=== PATIENT | male | born 1975 | race Caucasian/White ===

== ENCOUNTER 2018-06-11 21:04 | Inpatient (IN) | payer OTHER ==
--- NOTE | 2018-06-11 21:15 | PDOC ---
History of Present Illness - General Stated Complaint: VOMITTING Time Seen by Provider: 06/11/18 21:14 - History of Present Illness Initial Comments: 06/11/18 21:14 Mr. Walker is a 43 yo male w/ pmh of HTN, HLD, DM who presents for evaluation of abscess on back with additional nausea and vomiting. Patient reports abscess has been present for the past week and a half. He has previously been checked out at [facility] for same problem and was given outpatient clindamycin prescription due to finish today with no improvement of symptoms. Represents as abscess has continued to grow and he has now had nausea and vomiting he says is from the pain. Additionally reports intermittent fevers, chills, and night sweats in the past week. Has had MRSA positive abscess in the past. The patient denies chest pain, shortness of breath, headache and dizziness. Denies dysuria, frequency, urgency and hematuria. Past History - Past Medical History Allergies/Adverse Reactions: Allergies Allergy/AdvReac Type Severity Reaction Status Date / Time No Known Allergies Allergy Verified 06/11/18 21:29 Home Medications: Ambulatory Orders Insulin Glargine,Hum.rec.anlog [Lantus] 30 unit SQ DAILY 06/12/18 Insulin Regular [NOVOLIN R VIAL *IVPUSH / ER / ICU Only*] 8 unit SQ AC 06/12/18 Review of Systems - Review of Systems Comments:: 06/11/18 21:14 GENERAL/CONSTITUTIONAL: +Fever/Chills/night sweats in past week as described. No weakness. HEAD, EYES, EARS, NOSE AND THROAT: No change in vision. No ear pain or discharge. No sore throat. CARDIOVASCULAR: No chest pain or shortness of breath RESPIRATORY: No cough, wheezing, or hemoptysis. GASTROINTESTINAL: +N/V as described. No diarrhea or constipation. GENITOURINARY: No dysuria, frequency, or change in urination. MUSCULOSKELETAL: +Back pain at abscess site 02/22 SKIN: No rash NEUROLOGIC: No headache, vertigo, loss of consciousness, or change in strength/ sensation. ENDOCRINE: No increased thirst. No abnormal weight change HEMATOLOGIC/LYMPHATIC: No anemia, easy bleeding, or history of blood clots. ALLERGIC/IMMUNOLOGIC: No hives or skin allergy. *Physical Exam - Physical Exam Comments: 06/11/18 21:15 GENERAL: Awake, alert, and fully oriented, in no acute distress HEAD: No signs of trauma, normocephalic, atraumatic EYES: PERRLA, EOMI, sclera anicteric, conjunctiva clear ENT: Auricles normal inspection, hearing grossly normal, nares patent, oropharynx clear without exudates. Moist mucosa NECK: Normal ROM, supple, no lymphadenopathy, JVD, or masses LUNGS: No distress, speaks full sentences, clear to auscultation bilaterally HEART: Regular rate and rhythm, normal S1 and S2, no murmurs, rubs or gallops, peripheral pulses normal and equal bilaterally. ABDOMEN: Soft, nontender, normoactive bowel sounds. No guarding, no rebound. No masses EXTREMITIES: +[id number] abscess noted to L upper back. Also scarring from old abscess sites appreciated to L axilla and 2 other sites on L back. Patient also has scarring from old rectal abscess as well. Otherwise normal inspection, normal range of motion, no edema. No clubbing or cyanosis. NEUROLOGICAL: Cranial nerves II through XII grossly intact. Normal speech, normal gait, no focal sensorimotor deficits SKIN: Warm, Dry, normal turgor, no rashes or lesions noted. 06/11/18 21:49 ED Treatment Course - LABORATORY CBC & Chemistry Diagram: 06/11/18 21:33 06/11/18 22:50 Medical Decision Making - Medical Decision Making 06/11/18 21:47 Mr. Walker is a 43 yo male w/ pmh as described who presents for evaluation of abscess. Given presentation and size of abscess, gen surgery contacted upon arrival and will evaluate in AM. Septic workup started. 06/12/18 00:09 Patient labs consistent with infection as below. Wound culture sent for review. Patient hydrated per sepsis guidelines and given vanc/zosyn for prophylaxis. Insulin given for elevated BGM. Patient will be admitted. 06/12/18 01:[address] Chest with inpatient team. Creatinine elevated as below. Patient will require hydration for kidney protection before able to perform with contrast. Laboratory Results - last 24 hr 06/11/18 06/11/18 06/11/18 21:33 21:33 22:30 WBC 19.3 H RBC 4.30 Hgb 13.3 Hct 37.8 MCV 87.9 MCH 31.0 MCHC 35.3 RDW 13.8 Plt Count 344 MPV 7.8 Absolute Neuts (auto) 16.6 H Neutrophils % 86.2 H Lymphocytes % 3.4 L Monocytes % 9.9 Eosinophils % 0.1 Basophils % 0.4 Nucleated RBC % 0 VBG pH 7.43 H POC VBG pCO2 34.7 L POC VBG pO2 51.7 H Mixed VBG HCO3 22.7 Sodium Potassium Chloride Carbon Dioxide Anion Gap BUN Creatinine Creat Clearance w eGFR Random Glucose Calcium Total Bilirubin AST ALT Alkaline Phosphatase Troponin I Total Protein Albumin Urine Color Yellow Urine Appearance Slcloudy Urine pH 5.0 Ur Specific [place] 1.024 Urine Protein 2+ H Urine Glucose (UA) 3+ H Urine Ketones 1+ H Urine Blood Negative Urine Nitrite Negative Urine Bilirubin Negative Urine Urobilinogen 2.0 Ur Leukocyte Esterase Negative Urine WBC (Auto) 30 Urine RBC (Auto) 2 Ur Epithelial Cells Rare Hyaline Casts 1 Urine Mucus Rare Acetone, Qual 06/11/18 06/11/18 06/11/18 22:50 22:50 22:50 WBC RBC Hgb Hct MCV MCH MCHC RDW Plt Count MPV Absolute Neuts (auto) Neutrophils % Lymphocytes % Monocytes % Eosinophils % Basophils % Nucleated RBC % VBG pH POC VBG pCO2 POC VBG pO2 Mixed VBG HCO3 Sodium 134 L Potassium 3.9 Chloride 100 Carbon Dioxide 24 Anion Gap 10 BUN 27 H Creatinine 1.4 H Creat Clearance w eGFR 55.85 Random Glucose 337 H* Calcium 8.3 L Total Bilirubin 0.4 AST 13 L ALT 20 Alkaline Phosphatase 209 H Troponin I < 0.02 Total Protein 6.3 L Albumin 2.5 L Urine Color Urine Appearance Urine pH Ur Specific [place] Urine Protein Urine Glucose (UA) Urine Ketones Urine Blood Urine Nitrite Urine Bilirubin Urine Urobilinogen Ur Leukocyte Esterase Urine WBC (Auto) Urine RBC (Auto) Ur Epithelial Cells Hyaline Casts Urine Mucus Acetone, Qual Trace *DC/Admit/Observation/Transfer Diagnosis at time of Disposition: Abscess Sepsis Qualifiers: Sepsis type: sepsis due to unspecified organism Qualified Code(s): A41.9 - Sepsis, unspecified organism - Discharge Dispostion Condition at time of disposition: Fair Decision to Admit order: Yes - Referrals - Patient Instructions - Post Discharge Activity
[2018-06-11 21:29] VITALS: BMI 27.9
[2018-06-11] MEDS ORDERED: SODIUM CHLORIDE 2,286 ML IV ONE (21:32)
[2018-06-11] MEDS ORDERED: PIPERACILLIN/TAZOB 3.375 GM 3.375 GM in DEXTROSE 5%-WATER - 50 ML IVPB ONE (21:34)
[2018-06-11] MEDS ORDERED: VANCOMYCIN 1 GM in D5W (PRE-DOCKED) 1,000 MG/250 ML IVPB ONE (21:34)
[2018-06-11] MEDS ORDERED: ONDANSETRON 4 MG/2 ML VIAL IVPUSH ONE (21:34)
--- NOTE | 2018-06-11 21:34 | PDOC ---
Attending Attestation - HPI HPI: This patient is a 43 year old male with PMHx of DM, HTN, HLD, asthma, BPD, MRSA in past, who presents with multiple abscesses, nausea, and vomit. Patient reports painful large abscess on mid-back for the past 7-10 days. He also has abscesses in anus, and left axilla. He has had abscesses in the past. Patient reports being seen at [facility] with Rx for clinda with no improvement of symptoms. He reports associated fevers, chills and night sweats. Social Hx: currently homeless and couch surfing. Current everyday smoker (last smoked few days ago) - Physicial Exam PE: GENERAL: Awake, alert, and fully oriented, in no acute distress. Febrile. HEAD: No signs of trauma EYES: PERRLA, EOMI, sclera anicteric, conjunctiva clear ENT: Auricles normal inspection, hearing grossly normal, nares patent, posterior oropharynx with ulcers and thrush. Very dry mucosa. Poor dentition. NECK: Normal ROM, supple, no lymphadenopathy, JVD, or masses LUNGS: Breath sounds equal, clear to auscultation bilaterally. No wheezes, and no crackles HEART: Regular rate and rhythm, normal S1 and S2, no murmurs, rubs or gallops ABDOMEN/BACK: Soft, nontender, normoactive bowel sounds. No guarding, no rebound. No masses. Flank pain referred from larger back abscess. See skin for absesses. EXTREMITIES: Normal range of motion, no edema. No clubbing or cyanosis. No cords, erythema, or tenderness NEUROLOGICAL: Cranial nerves II through XII grossly intact. Normal speech, normal gait SKIN: [id number] mid back abscess, purulent drainage, surrounding erythema. 2 old abscesses on upper back. 1x1 cm abscess 2 cm below left nipple, draining. Early infectious lesion in left axilla. 1 abscess in anus. Warm, Dry, normal turgor, no rashes or lesions noted. <Maia Mchugh - Last Filed: 06/11/18 21:57> - Resident Resident Name: Aldo Mandel - ED Attending Attestation I have performed the following: I have examined & evaluated the patient, The case was reviewed & discussed with the resident, I agree w/resident's findings & plan - Medical Decision Making 06/12/18 00:48 CBC is 19; pt has acetone +/DM not well controlled. He will be treated with reg insulin. Received vanco and zosyn for the wound/abscess <Conchis Carlton - Last Filed: 06/12/18 00:48> Heart Score/ECG Review - ECG Intrepretation Rhythm: Regular Rhythm - Hildebran Hildebran: Normal - P and RI Prominent R with upright T in V1 (true posterior AK): No Delta Wave(s) Present: No WPW: No - QRS Poor R Wave Progression: No Q Wave Present: No - ST and T Early Repolarization: No Non Specific ST-T Wave changes: No Flattened T Waves: No - ECG Impressions Normal ECG: Yes Non-specific ST Elevation: No Ischemic Changes: No Bradycardia: No Tachycardia: Sinus (borderline tachy) <Conchis Carlton - Last Filed: 06/12/18 00:48>
[2018-06-11] MEDS ORDERED: NYSTATIN 500,000 UNITS/5 ML SUSPENSION PO ONE (21:42)
[2018-06-11] MEDS ORDERED: ONDANSETRON 4 MG/2 ML VIAL ONE (21:43)
[2018-06-11] MEDS ORDERED: PIPERACILLIN/TAZOB 3.375 GM 3.375 GM/50 ML BAG IVPB ONE (21:44)
[2018-06-11] MEDS ORDERED: VANCOMYCIN 1 GRAM (PRE-DOCKED) 1,000 MG/250 ML BAG IVPB ONE (21:44)
[2018-06-11] MEDS ORDERED: ACETAMINOPHEN 1000 MG/100 ML VIAL (NON FORMULARY) IVPB ONE (21:46)
[2018-06-11] MEDS ORDERED: ACETAMINOPHEN INJECTION 100 ML IVPB ONE (22:31)
[2018-06-11 23:07] LABS: VENOUS PC02 34.7 mmHg (38-52); VENOUS PH 7.43 (7.32-7.42); VENOUS PO2 51.7 mmHg (28-48)
[2018-06-11 23:08] LABS: BASO % 0.4 % (0-2.0); EOS % 0.1 % (0-4.5); HEMATOCRIT 37.8 % (35.4-49); HEMOGLOBIN 13.3 GM/dL (11.7-16.9); LYMPH % 3.4 % (8-40); MCHC 35.3 g/dl (32.0-35.9); MEAN CELL VOLUME 87.9 fl (80-96); MEAN PLT VOLUME 7.8 fl (7.5-11.1); MONO % 9.9 % (3.8-10.2); NEUT % 86.2 % (42.8-82.8); PLATELET COUNT 344 K/MM3 (134-434); RDW 13.8 % (11.9-15.9); WHITE BLOOD COUNT 19.3 K/mm3 (4.0-10.0)
[2018-06-11 23:20] LABS: INR 1.32 (0.83-1.09); PROTHROMBIN TIME (PATIENT) 15.6 SEC (9.7-13.0)
[2018-06-11 23:20] LABS: URINE APPEARANCE SLCLOUDY; URINE BILIRUBIN NEGATIVE (<2.0 mg/dL); URINE COLOR YELLOW; URINE GLUCOSE (UA) 3+ (NEGATIVE); URINE KETONE 1+ (NEGATIVE); URINE LEUK ESTERASE NEGATIVE (NEGATIVE); URINE NITRITE NEGATIVE (NEGATIVE); URINE PROTEIN 2+ (NEGATIVE)
[2018-06-11 23:22] LABS: ACTIVATED PTT 30.3 SECONDS (25.2-36.5)
[2018-06-11 23:23] LABS: EPI CELLS RARE /HPF (FEW); URINE HYALINE CAST 1 /lpf; URINE MUCUS RARE
[2018-06-11] MEDS ORDERED: INSULIN REGULAR HUMAN 100 UNITS/ML *VIAL IVPUSH ONE (23:44)
[2018-06-11 23:45] LABS: ALBUMIN 2.5 g/dl (3.4-5.0); ALK PHOS 209 U/L (45-117); ANION GAP 10 MMOL/L (8-16); BILIRUBIN,TOTAL 0.4 mg/dL (0.2-1); BLOOD UREA NITROGEN 27 mg/dL (7-18); CALCIUM 8.3 mg/dL (8.5-10.1); CHLORIDE 100 mmol/L (98-107); CO2 24 mmol/L (21-32); CREATININE 1.4 mg/dL (0.55-1.3); POTASSIUM 3.9 mmol/L (3.5-5.1); SGOT/AST 13 U/L (15-37); SGPT/ALT 20 U/L (13-61); SODIUM 134 mmol/L (136-145); TOT PROT 6.3 g/dl (6.4-8.2)
[2018-06-11 23:47] LABS: GLUCOSE,RANDOM 337 mg/dL (74-106)
[2018-06-12] MEDS ORDERED: INSULIN REGULAR HUMAN 100 UNITS/ML *VIAL ONE ×2 (00:10→07:19)
--- NOTE | 2018-06-12 00:48 | PN ---
Teaching Attending Note Name of Resident: Caroline Landry ATTENDING PHYSICIAN STATEMENT I saw and evaluated the patient. I reviewed the resident's note and discussed the case with the resident. I agree with the resident's findings and plan as documented. SUBJECTIVE: Seen and examined; please refer to resident note for further historical information/. Briefly, this is a 43 y/o homeless male presenting with c/o mutliple abscesses (midback, L-axilla, L-nipple, anal area). He has had MRSA in the past (2 years ago at [facility] for MRSA wound on chest) and tells us he has had '15' I and D's done. The pain has been gradually getting worse so he chose to come to the ER for further treatment and monitoring. In terms of the anal abscess, he states it is not currently active but he has had one in the past. The back abscess is quite large, nearly a foot of induration. Case was discussed with Dr. Barker by ER staff who will see the patient in the AM. He has multiple risk factors for MRSA including incarceration. He was seen at [facility] for this last week and was discharged with a 1 week course of PO clinda; seen by his PCP on tuesday and was given ibuprofen. He has some constitutional sx. 10 sys ROS done and negative aside from HPI PMH and PSH reviewed (DM, HTN, HLD, Asthma, BPD, MRSA in the past) FH asked and noncontributory Social history reviewed Medication list reviewed; reconciliation pending OBJECTIVE: VS, labs, imaging reviewed NAD, AAO, resting comfortably in bed Midback with [id number] abscess seen with some purulent drainage, surrounding erythema Labs and imaging reviewed; CBC with leukocytosis to 19; BMP with 134 Na and 1/4 Cr with 337 glucose and NO anion gap and normal CO2. Low albumin at 2.5. UA positive for glucose, ketones, proteins. VBG unremarkable CXR pending final report ASSESSMENT AND PLAN: 43 y/o homeless man presenting with multiple abscesses and hyperglycemia 1) Multiple abscesses -Midback, chest, L-axilla, Anal area; asked resident team to outline abscess areas with surgical marker -With history of MRSA vancomycin will be continue as well. Consulting ID for antibiotic management per policy given drugs of choice. CT ordered; if no free air can likely do vancomycin monotherapy. -Surgery is following; defer ultimate management to their service. Appreciate expert opinion. -Trend CBC, followup cultures -NPO, IVF, Pain control (he does have a history of drug abuse so will minimize use of narcotics in this patient but in this acute setting of course will tx pain) 2) Uncontrolled DM with hyperglycemia -Continue home meds when eating; aggressive SSI coverage in the pre-operative setting overnight. Hyperglycemia could be precipitated by poor baseline control or the acute infection. Goal <180 for time being. If SSI proves difficult can give some of his long acting but want to avoid hypoglycemia. 3) Elevated Alk Phos -Check GGT; RUQ us if needed 4) HTN -Was on medications prior but not taking now; monitor BP and add agent if needed prior to DC 5) HLD -Not on home meds; check FLP and calculate ASCVD 6) Elevated Creatinine -No prior creatinine in the system; he has multiple reasons for CKD. Trend CMP ; this may be his baseline. 7) Hx Asthma -No exacerbation; can give PRN albuterol FENA -LR@100 -PRN replete -NPO in case of procedure -As tolerated Full Code
[2018-06-12] MEDS ORDERED: MORPHINE SULFATE 2 MG/ML VIAL IVPUSH PRN (00:55)
[2018-06-12] MEDS ORDERED: ALBUTEROL SO4 0.083% IH SOL 2.5 MG/3 ML VIAL.NEB. NEB PRN ×2 (00:59→18:02)
[2018-06-12] MEDS ORDERED: LACTATED RINGERS SOLUTION 1,000 ML IV SCH (01:00)
--- NOTE | 2018-06-12 01:08 | HP ---
CHIEF COMPLAINT: L back abscess x 1.5 weeks PCP: Dr. Deep Sanders HISTORY OF PRESENT ILLNESS: 43 y/o homeless M with PMH HTN, HLD, DM, asthma, who presents to the ED for L back abscess that has been present over the past 1.5 weeks. As per pt, it did not start out as a pimple, or skin irritation. States that it 1.5 weeks ago, it was already large (approx [id number] in) and irritated. Pt went to [facility] for further evaluation of the abscess last Tuesday and was rx 7 day course of clindamycin, which he just finished today. In the interim, he saw his PCP, Dr. Sanders who told him it was not ready to incise and to take ibuprofen in the meanwhile. Today, pt was at his cousin's house when he noticed that he was unable to breathe from the pain, so he decided he needed to come to the ED for further evaluation. At this time, endorses alternating fever and chills sensations, as well as self-limited nausea w/NBNB emesis. Without chest pain or pressure, or changes in urinary or bowel function. Of note, pt has had multiple I&D in the past (>15) all for abscesses on the L side of his body (chest, LUE, back, perianal). He was hospitalized 2 yrs prior at [facility] for wound + with MRSA and was sent home on an antibiotic. (does not remember the name). Was released from assisted three yrs ago, and has been living on the streets ever since, sometimes in shelters. Past hx significant for use of multiple drugs cocaine, PCP, marijuana. ER course was notable for: (1) zofran (2) insulin 6u (3) vanc, zosyn (4) tylenol Recent Travel: denies; but has been living [address] PAST MEDICAL HISTORY: as above PAST SURGICAL HISTORY: as above, multiple I&D Social History: Smokin cigs/day since age 15 Alcohol: denies Drugs: quit 3 yrs ago when released from assisted, used to use cocaine, PCP, marijuana Family History: mother - from brain CA, brother - psych issues Allergies No Known Allergies Allergy (Verified 06/11/18 21:29) HOME MEDICATIONS: Home Medications Medication Instructions Recorded Insulin Glargine,Hum.rec.anlog 30 unit SQ DAILY 06/12/18 [Lantus] Insulin Regular [NOVOLIN R VIAL 8 unit SQ AC 06/12/18 *IVPUSH / ER / ICU Only*] verified with pt verbally used to be on meds for HTN however was taken off d/t improved bp REVIEW OF SYSTEMS CONSTITUTIONAL: +fever, chills Absent: fever, chills, diaphoresis, generalized weakness, malaise, loss of appetite, weight change HEENT: Absent: rhinorrhea, nasal congestion, throat pain, throat swelling, difficulty swallowing, mouth swelling, ear pain, eye pain, visual changes CARDIOVASCULAR: Absent: chest pain, syncope, palpitations, irregular heart rate, lightheadedness , peripheral edema RESPIRATORY: Absent: cough, shortness of breath, dyspnea with exertion, orthopnea, wheezing, stridor, hemoptysis GASTROINTESTINAL: +nausea Absent: abdominal pain, abdominal distension, nausea, vomiting, diarrhea, constipation, melena, hematochezia GENITOURINARY: Absent: dysuria, frequency, urgency, hesitancy, hematuria, flank pain, genital pain MUSCULOSKELETAL: Absent: myalgia, arthralgia, joint swelling, back pain, neck pain SKIN: +abscess Absent: rash, itching, pallor HEMATOLOGIC/IMMUNOLOGIC: Absent: easy bleeding, easy bruising, lymphadenopathy, frequent infections ENDOCRINE: Absent: unexplained weight gain, unexplained weight loss, heat intolerance, cold intolerance NEUROLOGIC: Absent: headache, focal weakness or paresthesias, dizziness, unsteady gait, seizure, mental status changes, bladder or bowel incontinence PSYCHIATRIC: Absent: anxiety, depression, suicidal or homicidal ideation, hallucinations. PHYSICAL EXAMINATION Vital Signs - 24 hr 06/11/18 21:04 Temperature 98.5 F Pulse Rate 77 Respiratory 18 Rate Blood Pressure 100/62 O2 Sat by Pulse 97 Oximetry (%) GENERAL: Unkempt. Lying down in bed. Awake, alert, and fully oriented, in mild distress HEAD: Normal with no signs of trauma. EYES: Pupils equal, round and reactive to light, extraocular movements intact, sclera anicteric, conjunctiva clear. EARS, NOSE, THROAT: Ears normal, nares patent, oropharynx clear without exudates. Moist mucous membranes. NECK: Normal range of motion, supple LUNGS: Breath sounds equal, clear to auscultation bilaterally. No wheezes, and no crackles. No accessory muscle use. HEART: Regular rate and rhythm, normal S1 and S2 without murmur, rub or gallop. ABDOMEN: Soft, nontender, not distended, normoactive bowel sounds, no guarding, no rebound, no masses. LOWER EXTREMITIES: 2+ pt pulses, warm, well-perfused. No calf tenderness. No peripheral edema. NEUROLOGICAL: Cranial nerves II-XII intact. able to move UE and LE however limited 2/2 abscess pain in back BACK: +large abscess - hardened, tender with surrounding erythema, no drainage or foul smell. with crusting. approx [id number] PSYCHIATRIC: Cooperative. Good eye contact. SKIN: +multiple abscesses- L chest. currently not draining. +L gluteal area- scar, no active abscess noted Laboratory Tests 06/11/18 06/11/18 06/11/18 21:33 22:50 22:50 WBC 19.3 H Absolute Neuts (auto) 16.6 H Neutrophils % 86.2 H Lymphocytes % 3.4 L Sodium 134 L Potassium 3.9 Chloride 100 BUN 27 H Creatinine 1.4 H Random Glucose 337 H* Alkaline Phosphatase 209 H will c Troponin I < 0.02 Total Protein 6.3 L Albumin 2.5 L Acetone, Qual CXR: official read pending ASSESSMENT/PLAN: 43 y/o homeless M with PMH HTN, HLD, DM, asthma, who presents to the ED for L back abscess that has been present over the past 1.5 weeks. #Multiple abscesses (L paraspinal area, axilla, chest) -c/w vanc 1g IVPB qd, zosyn 3.375g IVPB q8h. has hx MRSA in past -isolation precautions -f/u abscess, blood cx -ID consult: Dr. Cope -Sx consult: Dr. Barker; will decide whether pt needs I&D. -for time being, will keep NPO, send T+S, coags in prep -will also send quant as pt with exposure to homeless env't -LR 100 cc/hr -pain control with Tylenol KRISTIAN, morphine for breakthrough pain #HTN-controlled -currently not on BP meds -will continue to monitor #HLD -F/u lipid profile to determine ASCVD risk, if need to start on statin #DM -at home on 30u lantus AM, 8U insulin before meals -will hold for now as NPO to avoid hypoglycemia -will cover with ISS #?DEVANG vs. DEVANG on CKD -without baseline Cr -for now will hydrate with IVF and monitor #elevated ALP -currently asymptomatic. however f/u RUQ U/S, GGT #hx asthma -currently not in exacerbation -control with ventolin PRN #F/E/N IV LR 100 cc/hr continue to follow lytes NPO in case of procedure #PPX SCD's #Dispo med/surg for possible I&D tomorrow Visit type - Emergency Visit Emergency Visit: Yes ED Registration Date: 06/11/18 Care time: The patient presented to the Emergency Department on the above date and was hospitalized for further evaluation of their emergent condition. - New Patient This patient is new to me today: Yes Date on this admission: 06/12/18 - Critical Care Critical Care patient: No
[2018-06-12] MEDS ORDERED: PIPERACILLIN/TAZOB 3.375 GM 3.375 GM/50 ML BAG IVPB ONE ×2 (01:41→09:49)
[2018-06-12] MEDS: ACETAMINOPHEN 325 MG TABLET (FP) PO SCH ×4 (02:15→22:27)
[2018-06-12] MEDS: PIPERACILLIN/TAZOB 3.375 GM 3.375 GM in DEXTROSE 5%-WATER - 50 ML IVPB SCH ×2 (02:15→09:50)
[2018-06-12] MEDS ORDERED: ONDANSETRON 4 MG/2 ML VIAL IVPUSH ONE (05:09)
[2018-06-12] MEDS ORDERED: morphine CARPU-JECT 4 MG/1 ML DISP.SYRIN IVPUSH ONE (05:12)
[2018-06-12] MEDS ORDERED: ONDANSETRON 4 MG/2 ML VIAL ONE (05:14)
[2018-06-12] MEDS ORDERED: morphine SULFATE 4 MG/ML VIAL ONE (05:14)
[2018-06-12] MEDS ORDERED: AMOX TR/POT CLAV 875MG/125MG TABLETS (FP) ONE (05:19)
[2018-06-12] MEDS ORDERED: ACETAMINOPHEN 325 MG TABLET (FP) ONE ×2 (05:59→08:03)
[2018-06-12 07:00] LABS: BASO % 0.4 % (0-2.0); EOS % 0.3 % (0-4.5); HEMATOCRIT 33.6 % (35.4-49); HEMOGLOBIN 11.7 GM/dL (11.7-16.9); LYMPH % 4.3 % (8-40); MCH 30.4 pg (25.7-33.7); MCHC 34.8 g/dl (32.0-35.9); MEAN CELL VOLUME 87.4 fl (80-96); MEAN PLT VOLUME 7.8 fl (7.5-11.1); MONO % 11.3 % (3.8-10.2); NEUT % 83.7 % (42.8-82.8); PLATELET COUNT 324 K/MM3 (134-434); RBC 3.84 M/mm3 (4.00-5.60); RDW 13.9 % (11.9-15.9); WHITE BLOOD COUNT 14.7 K/mm3 (4.0-10.0)
[2018-06-12 07:04] LABS: CHOLESTEROL 135 mg/dL (50-200); HDL CHOLESTEROL 11 mg/dL (40-60); TRIGLYCERIDES 250 mg/dL (0-150)
[2018-06-12] MEDS: INSULIN SLIDING SCALE (NOVOLOG) 1 VIAL SQ SCH ×3 (07:20→22:35)
[2018-06-12 07:35] LABS: INR 1.27 (0.83-1.09)
[2018-06-12 07:37] LABS: ACTIVATED PTT 30.7 SECONDS (25.2-36.5)
[2018-06-12 07:59] LABS: ALBUMIN 2.1 g/dl (3.4-5.0); ALK PHOS 168 U/L (45-117); ANION GAP 11 MMOL/L (8-16); BILIRUBIN,TOTAL 0.5 mg/dL (0.2-1); BLOOD UREA NITROGEN 25 mg/dL (7-18); CALCIUM 7.8 mg/dL (8.5-10.1); CHLORIDE 103 mmol/L (98-107); CO2 21 mmol/L (21-32); CREATININE 1.2 mg/dL (0.55-1.3); GLUCOSE,RANDOM 250 mg/dL (74-106); PHOSPHOROUS 3.6 mg/dL (2.5-4.9); POTASSIUM 3.8 mmol/L (3.5-5.1); SGOT/AST 13 U/L (15-37); SGPT/ALT 14 U/L (13-61); SODIUM 135 mmol/L (136-145); TOT PROT 5.4 g/dl (6.4-8.2)
--- NOTE | 2018-06-12 07:59 | CONSULT ---
- Consultation REQUESTING PROVIDER: CONSULT REQUEST: We have been asked to surgically evaluate this patient for back abscess. PCP:Nikita Rausch MD HISTORY OF PRESENT ILLNESS: 43 y/o homeless M with PMH HTN, HLD, DM, asthma, who presents to the ED for L back abscess that has been present over the past 10 days. Patient denies any trauma associated with the onset. Patient states it started as large abscess (approx [id number] in) that became irritated and progressively painful over the past 10 days. Patient also reports fever and chills over the past few days. He went to [facility] for evaluation of the abscess last Tuesday and was started on a 7 day course of clindamycin, which he just finished last night. In the interim, he saw his PCP, Dr. Sanders who told him it was not ready to incise and to take ibuprofen in the meanwhile. Last night the pt was at his cousin's house when he pain became unbearable and he decided to come to the ED for further evaluation. He denies any CP, SOB, N/V/D headache, blurred vision or dizziness. Of note, pt has had multiple I&D in the past (>15) all for abscesses on the L side of his body (chest, LUE, back, perianal). He was hospitalized 2 yrs prior at [facility] for wound + with MRSA and was sent home on an antibiotic. Was released from [facility] three yrs ago, and has been living on the streets ever since, sometimes in shelters. Past hx significant for use of multiple drugs cocaine, PCP, marijuana. Recent Travel: denies; but has been living on the [address] PAST MEDICAL HISTORY: as above PAST SURGICAL HISTORY: as above, multiple I&D Social History: Smokin cigs/day since age 15 Alcohol: denies Drugs: quit 3 yrs ago when released from [facility], used to use cocaine, PCP, marijuana, denies current IVDU Home Medications Medication Instructions Recorded Albuterol Sulfate Inhaler - 1 - 2 inh PO QID PRN 06/12/18 [Ventolin Hfa Inhaler -] Insulin Glargine,Hum.rec.anlog 30 unit SQ DAILY 06/12/18 [Lantus] Insulin Regular [NOVOLIN R VIAL 8 unit SQ AC 06/12/18 *IVPUSH / ER / ICU Only*] Allergies Allergy/AdvReac Type Severity Reaction Status Date / Time Fish Containing Products Allergy Verified 06/12/18 03:50 REVIEW OF SYSTEMS: CONSTITUTIONAL: + fever, chills, diaphoresis, malaise, loss of appetite, CARDIOVASCULAR: Absent: chest pain, syncope, palpitations, lightheadedness, peripheral edema RESPIRATORY: Absent: cough, shortness of breath, dyspnea with exertion, hemoptysis GASTROINTESTINAL: Absent: abdominal pain, abdominal distension, nausea, vomiting, diarrhea, GENITOURINARY: Absent: dysuria, frequency, urgency, hesitancy, hematuria, MUSCULOSKELETAL: Absent: joint swelling, neck pain SKIN: Absent: rash, itching, pallor HEMATOLOGIC/IMMUNOLOGIC: Absent: easy bleeding, easy bruising, NEUROLOGIC: Absent: headache, focal weakness, paresthesias, dizziness, bladder or bowel incontinence PHYSICAL EXAM: GENERAL: Awake, alert, and fully oriented, in no acute distress. HEAD: Normal with no signs of trauma. EYES: sclera anicteric, conjunctiva clear. LUNGS: no auditory wheezes, No accessory muscle use, unlabored resp on RA MUSCULOSKELETAL:moving all extremities without limitation. Back: Large wound @ [id number] with large area or crust in center with purulance draining at center, no obvious sign of a sinus tract. crusted area surrounded by a halo of blanching erythema with no evidence of tracking. Entire area indurated with no superficial fluctuance. UPPER EXTREMITIES: warm, well-perfused. No peripheral edema. NEUROLOGICAL: Normal speech, gait not observed. PSYCH: Cooperative. Good eye contact. Appropriate mood and affect. SKIN: Warm, dry, normal turgor, no rashes noted. Vital Signs Temperature 97.5 F L 06/12/18 05:30 Pulse Rate 91 H 06/12/18 05:30 Respiratory Rate 16 06/12/18 05:30 Blood Pressure 127/68 06/12/18 05:30 O2 Sat by Pulse Oximetry (%) 98 06/12/18 05:30 Lab Results WBC 14.7 K/mm3 (4.0-10.0) H 06/12/18 05:30 RBC 3.84 M/mm3 (4.00-5.60) L 06/12/18 05:30 Hgb 11.7 GM/dL (11.7-16.9) 06/12/18 05:30 Hct 33.6 % (35.4-49) L 06/12/18 05:30 MCV 87.4 fl (80-96) 06/12/18 05:30 MCHC 34.8 g/dl (32.0-35.9) 06/12/18 05:30 RDW 13.9 % (11.9-15.9) 06/12/18 05:30 Plt Count 324 K/MM3 (134-434) 06/12/18 05:30 Sodium 134 mmol/L (136-145) L 06/11/18 22:50 Potassium 3.9 mmol/L (3.5-5.1) 06/11/18 22:50 Chloride 100 mmol/L (98-107) 06/11/18 22:50 Carbon Dioxide 24 mmol/L (21-32) 06/11/18 22:50 Anion Gap 10 MMOL/L (8-16) 06/11/18 22:50 BUN 27 mg/dL (7-18) H 06/11/18 22:50 Creatinine 1.4 mg/dL (0.55-1.3) H 06/11/18 22:50 Random Glucose 337 mg/dL (74-106) H* 06/11/18 22:50 Calcium 8.3 mg/dL (8.5-10.1) L 06/11/18 22:50 Blood Type O POSITIVE 06/12/18 03:00 Antibody Screen Negative 06/12/18 03:00 INR 1.27 (0.83-1.09) H 06/12/18 05:30 Problem List - Problems (1) Abscess Assessment/Plan: Large back abscess in patient with multiple comorbidities. 1) NPO except sips with meds for possible debridement in OR today 2) CT Thoracic spine 3) ID for IV ABX 4) Pain mngt Evaluation and plan discussed with Dr Barker Code(s): L02.91 - CUTANEOUS ABSCESS, UNSPECIFIED
--- NOTE | 2018-06-12 10:47 | EKG ---
Test Reason : Blood Pressure : / mmHG Vent. Rate : 096 BPM Atrial Rate : 096 BPM P-R Int : 136 ms QRS Dur : 086 ms QT Int : 350 ms P-R-T Axes : 034 061 057 degrees QTc Int : 442 ms SINUS RHYTHM BASELINE ARTIFACT OTHERWISE NORMAL ECG NO PREVIOUS ECGS AVAILABLE Confirmed by PRISCILLA JEAN, ANTONIO ([id number]) on 06/12/2018 10:46:58 AM Referred By: Confirmed By:ANTONIO WELLS MD
[2018-06-12 10:56] LABS: ACANTHOCYTES 0; ANISOCYTOSIS 0; HELMET CELLS 0; HOWELL-JOLLY BODIES 0; MACROCYTOSIS 0; OVALOCYTE 0; PLATELET ESTIMATE NORMAL; ROULEAU 0; SICKELED CELLS 0; TARGET CELLS 0; TEAR DROP CELLS 0; TOXIC GRANULATION 0
--- NOTE | 2018-06-12 11:15 | PN ---
Progress Note, Physician Chief Complaint: Mr Walker complains of severe back pain. No cp, sob, n/v. - Current Medication List Current Medications: Active Medications Acetaminophen (Tylenol -) 650 mg PO Q4HPO KRISTIAN Last Admin: 06/12/18 10:30 Dose: 650 mg Albuterol Sulfate (Ventolin 0.083% Nebulizer Soln -) 1 amp NEB Q4H PRN PRN Reason: SHORT OF BREATH/WHEEZING Lactated Ringer's (Lactated Ringers Solution) 1,000 mls @ 100 mls/hr IV ASDIR KRISTIAN Last Admin: 06/12/18 02:15 Dose: 100 mls/hr Piperacillin Sod/Tazobactam (Sod 3.375 gm/ Dextrose) 50 mls @ 100 mls/hr IVPB Q8H-IV KRISTIAN Insulin Aspart (Novolog Vial Sliding Scale -) 1 vial SQ ACHS [facility]; Protocol Last Admin: 06/12/18 07:20 Dose: 6 unit Morphine Sulfate (Morphine Sulfate) 2 mg IVPUSH Q6H PRN PRN Reason: PAIN LEVEL 7 - 10 Vancomycin HCl (Vancomycin (Pre-Docked)) 1,000 mg IVPB DAILY [facility]; Protocol - Objective Vital Signs: Vital Signs Temperature 36.8 C 06/12/18 08:09 Pulse Rate 86 06/12/18 08:09 Respiratory Rate 16 06/12/18 08:09 Blood Pressure 135/63 06/12/18 08:09 O2 Sat by Pulse Oximetry (%) 99 06/12/18 08:09 Constitutional: Yes: Well Nourished, No Distress, Calm Cardiovascular: Yes: Regular Rate and Rhythm. No: Gallop, Murmur, Rub Respiratory: Yes: Regular, CTA Bilaterally. No: Rales, Rhonchi, Wheezes Gastrointestinal: Yes: Normal Bowel Sounds, Soft. No: Distention, Tenderness Extremities: Yes: WNL Edema: No Integumentary: Yes: Other (large ulceration on back) Labs: CBC, BMP 06/12/18 05:30 06/12/18 05:30 INR, PTT INR 1.27 (0.83-1.09) H 06/12/18 05:30 Problem List - Problems (1) Abscess Assessment/Plan: -appreciate surgical assistance -will need I&D -follow up culture results Code(s): L02.91 - CUTANEOUS ABSCESS, UNSPECIFIED (2) Sepsis Assessment/Plan: -secondary to abscess -ID consulted -vancomycin and zosyn ordered -awaiting ID evaluation and approval Code(s): A41.9 - SEPSIS, UNSPECIFIED ORGANISM Qualifiers: Sepsis type: sepsis due to unspecified organism Qualified Code(s): A41.9 - Sepsis, unspecified organism (3) Diabetes Assessment/Plan: -FSBS and SSI -diabetic diet when diet ordered post surgery Code(s): E11.9 - TYPE 2 DIABETES MELLITUS WITHOUT COMPLICATIONS (4) Asthma Assessment/Plan: -not in exacerbation -prn albuterol Code(s): J45.909 - UNSPECIFIED ASTHMA, UNCOMPLICATED Qualifiers: Asthma severity: mild Asthma persistence: intermittent Asthma complication type: uncomplicated Qualified Code(s): J45.20 - Mild intermittent asthma, uncomplicated
[2018-06-12] MEDS ORDERED: MORPHINE SULFATE 2 MG/ML VIAL ONE (11:19)
[2018-06-12] MEDS ORDERED: ROCURONIUM BROMIDE 50 MG/5 ML VIAL ONE (15:46)
[2018-06-12] MEDS ORDERED: PROPOFOL 20 ML ONE ×2 (15:46→17:00)
[2018-06-12] MEDS ORDERED: SUCCINYLCHOLINE CHLORIDE 200 MG/10 ML VIAL ONE (15:46)
[2018-06-12] MEDS ORDERED: fentaNYL CITRATE 250 MCG/5 ML VIAL ONE (15:46)
[2018-06-12] MEDS ORDERED: MIDAZOLAM HCL 2 MG/2 ML SINGLE DOSE VIAL ONE (15:47)
[2018-06-12] MEDS ORDERED: DEXAMETHASONE SOD PHOSPHATE 4 MG/1 ML VIAL ONE (15:47)
[2018-06-12] MEDS ORDERED: LIDOCAINE HCL/PF 2% SDV 5ML VIAL ONE (15:47)
--- NOTE | 2018-06-12 16:15 | CON.ID ---
Consult Consult Specialty:: infectious diseases Referred by:: hospitalist Reason for Consultation:: abscess of the back - History of Present Illness Chief Complaint: sweling and pain of the back History of Present Illness: 43 y/o homeless M with PMH HTN, HLD, DM, asthma, who presents to the ED for L back abscess that has been present over the past 1.5 weeks. As per pt, it did not start out as a pimple, or skin irritation. States that it 1.5 weeks ago, it was already large (approx [id number] in) and irritated. Pt went to [facility] for further evaluation of the abscess last Tuesday and was rx 7 day course of clindamycin, which he just finished today. In the interim, he saw his PCP, Dr. Sanders who told him it was not ready to incise and to take ibuprofen in the meanwhile. Today, pt was at his cousin's house when he noticed that he was unable to breathe from the pain, so he decided he needed to come to the ED for further evaluation. At this time, endorses alternating fever and chills sensations, as well as self-limited nausea w/NBNB emesis. Without chest pain or pressure, or changes in urinary or bowel function. Of note, pt has had multiple I&D in the past (>15) all for abscesses on the L side of his body (chest, LUE, back, perianal). He was hospitalized 2 yrs prior at [facility] for wound + with MRSA and was sent home on an antibiotic. (does not remember the name). Was released from shelter three yrs ago, and has been living on the streets ever since, sometimes in shelters. Past hx significant for use of multiple drugs cocaine, PCP, marijuana. patient was seen by the surgery team and the patient is being taken to the or for incision and drainage - History Source History Provided By: Patient Limitations to Obtaining History: No Limitations - Alcohol/Substance Use Hx Alcohol Use: Yes (Occasional) - Smoking History Smoking history: Current every day smoker Have you smoked in the past 12 months: Yes Aproximately how many cigarettes per day: 10 Home Medications - Allergies Allergies/Adverse Reactions: Allergies Allergy/AdvReac Type Severity Reaction Status Date / Time Fish Containing Products Allergy Verified 06/12/18 03:50 - Home Medications Home Medications: Ambulatory Orders Albuterol Sulfate Inhaler - [Ventolin Hfa Inhaler -] 1 - 2 inh PO QID PRN Insulin Glargine,Hum.rec.anlog [Lantus] 30 unit SQ DAILY 06/12/18 Insulin Regular [NOVOLIN R VIAL *IVPUSH / ER / ICU Only*] 8 unit SQ AC 06/12/18 Review of Systems - Review of Systems Constitutional: reports: No Symptoms Eyes: reports: No Symptoms HENT: reports: No Symptoms Neck: reports: No Symptoms Cardiovascular: reports: No Symptoms Respiratory: reports: No Symptoms Gastrointestinal: reports: No Symptoms Genitourinary: reports: No Symptoms Musculoskeletal: reports: Back Pain Integumentary: reports: Erythema Neurological: reports: No Symptoms Endocrine: reports: No Symptoms Hematology/Lymphatic: reports: No Symptoms Psychiatric: reports: No Symptoms Physical Exam Vital Signs: Vital Signs Temperature 99.1 F 06/12/18 11:30 Pulse Rate 83 06/12/18 11:30 Respiratory Rate 18 06/12/18 11:30 Blood Pressure 129/54 L 06/12/18 11:30 O2 Sat by Pulse Oximetry (%) 97 06/12/18 11:30 Constitutional: Yes: Calm, Mild Distress HENT: Yes: Atraumatic Cardiovascular: Yes: Regular Rate and Rhythm Respiratory: Yes: Regular, CTA Bilaterally Gastrointestinal: Yes: Normal Bowel Sounds, Soft Musculoskeletal: Yes: Other (abscess on the back) Extremities: Yes: Other Wound/Incision: Yes: Draining, Other (abscess of the back) Neurological: Yes: Alert, Oriented Psychiatric: Yes: Alert, Oriented Labs: CBC, BMP 06/12/18 05:30 06/12/18 05:30 Imaging - Results Chest X-ray: Report Reviewed, Image Reviewed Cat Scan: Report Reviewed, Image Reviewed Assessment/Plan Problem List - Problems (1) Abscess Code(s): L02.91 - CUTANEOUS ABSCESS, UNSPECIFIED (2) Sepsis Code(s): A41.9 - SEPSIS, UNSPECIFIED ORGANISM Qualifiers: Sepsis type: sepsis due to unspecified organism Qualified Code(s): A41.9 - Sepsis, unspecified organism (3) Diabetes Code(s): E11.9 - TYPE 2 DIABETES MELLITUS WITHOUT COMPLICATIONS (4) Asthma Code(s): J45.909 - UNSPECIFIED ASTHMA, UNCOMPLICATED Qualifiers: Asthma severity: mild Asthma persistence: intermittent Asthma complication type: uncomplicated Qualified Code(s): J45.20 - Mild intermittent asthma, uncomplicated plan will start patient on broad spectrum abx for or send cx rest as per the team
[2018-06-12] MEDS ORDERED: VANCOMYCIN 1,000 MG in DEXTROSE 5%-WATER - 250 ML IVPB SCH (16:30)
[2018-06-12] MEDS ORDERED: VANCOMYCIN 1,000 MG VIAL (RESTRICTED TO ID ONLY) ONE (16:57)
[2018-06-12] MEDS ORDERED: VANCOMYCIN 1 GM in D5W (PRE-DOCKED) 1,000 MG/250 ML IVPB ONE (17:00)
--- NOTE | 2018-06-12 17:41 | OP ---
Operative Note - Note: Operative Date: 06/12/18 Pre-Operative Diagnosis: back abscess Operation: incision and drainage of back abscess Surgeon: Herb Barker Oil Well Drilling Manager: Shadia Devi Anesthesiologist/JOURNEYMAN PIPE WELDER: Venus Pacheco Anesthesia: General Estimated Blood Loss (mls): 50 Fluid Volume Replaced (mls): 700 Operative Report Dictated: Yes
--- NOTE | 2018-06-12 17:42 | SURG ---
Surgery Ships Equipment Engineer Note Ships Equipment Engineer: Shadia Devi PA-C Date of Service: 06/12/18 Diagnosis: back abscess Procedure: incision and drainage of back abscess I was present for the entirety of the operative procedure. For further detail, please refer to operative report. Visit type - Case Type Case Type: ED Admission - Emergency Emergency Visit: Yes ED Registration Date: 06/11/18 Care time: The patient presented to the Emergency Department on the above date and was hospitalized for further evaluation of their emergent condition. - New patient This patient is new to me today: Yes Date on this admission: 06/12/18
[2018-06-12] MEDS ORDERED: ONDANSETRON 4 MG/2 ML VIAL IVPUSH PRN (17:49)
[2018-06-12] MEDS ORDERED: PIPERACILLIN/TAZOB 3.375 GM 3.375 GM in DEXTROSE 5%-WATER - 50 ML IVPB SCH (18:00)
[2018-06-12] MEDS ORDERED: PIPERACILLIN/TAZOB 2.25 GM 2.25 GM in DEXTROSE 5%-WATER - 50 ML IVPB SCH (18:00)
[2018-06-12] MEDS ORDERED: PIPERACILLIN/TAZOBACTAM 3.375 GM VIAL IVPB ONE ×2 (18:35→22:10)
[2018-06-12] MEDS ORDERED: VANCOMYCIN 1 GM in D5W (PRE-DOCKED) 1,000 MG/250 ML IVPB SCH (21:30)
[2018-06-12] MEDS ORDERED: DEXTROSE 5%-WATER - 50 ML IVPB ONE (22:11)
[2018-06-12] MEDS: MORPHINE SULFATE 2 MG/ML VIAL IVPUSH PRN (22:26)
[2018-06-13] MEDS: ACETAMINOPHEN 325 MG TABLET (FP) PO SCH ×4 (01:05→15:57)
[2018-06-13] MEDS ORDERED: VANCOMYCIN 1 GM in D5W (PRE-DOCKED) 1,000 MG/250 ML IVPB SCH (05:30)
[2018-06-13] MEDS: INSULIN SLIDING SCALE (NOVOLOG) 1 VIAL SQ SCH ×4 (07:03→23:08)
[2018-06-13 07:49] LABS: BASO % 0.3 % (0-2.0); HEMATOCRIT 35.7 % (35.4-49); HEMOGLOBIN 12.1 GM/dL (11.7-16.9); LYMPH % 7.1 % (8-40); MCH 29.9 pg (25.7-33.7); MEAN PLT VOLUME 7.6 fl (7.5-11.1); NEUT % 86.6 % (42.8-82.8); PLATELET COUNT 360 K/MM3 (134-434); RBC 4.06 M/mm3 (4.00-5.60); RDW 14.1 % (11.9-15.9); WHITE BLOOD COUNT 15.1 K/mm3 (4.0-10.0)
[2018-06-13 08:17] LABS: ANION GAP 10 MMOL/L (8-16); BLOOD UREA NITROGEN 25 mg/dL (7-18); CHLORIDE 100 mmol/L (98-107); CO2 24 mmol/L (21-32); SODIUM 133 mmol/L (136-145)
[2018-06-13 08:27] LABS: GLUCOSE,RANDOM 356 mg/dL (74-106)
--- NOTE | 2018-06-13 09:20 | PN ---
Progress Note (short form) - Note Progress Note: Anesthesia POD#1 S/P I and D of Abscess under GA VSS,no N/V,pain is under control Will need antibiotics Marlene Quesada MD.
[2018-06-13] MEDS ORDERED: PIPERACILLIN/TAZOBACTAM 3.375 GM VIAL IVPB ONE ×2 (10:41→22:54)
[2018-06-13] MEDS ORDERED: DEXTROSE 5%-WATER - 50 ML IVPB ONE ×2 (10:42→22:54)
[2018-06-13] MEDS: PIPERACILLIN/TAZOB 3.375 GM 3.375 GM in DEXTROSE 5%-WATER - 50 ML IVPB SCH ×2 (10:49→23:05)
[2018-06-13] MEDS: MORPHINE SULFATE 2 MG/ML VIAL IVPUSH PRN ×3 (11:29→23:15)
--- NOTE | 2018-06-13 13:53 | PN ---
Physical Exam: SUBJECTIVE: Patient seen and examined by me at bedside. No acute events overnight. Still complains of pain at the incision site but with adequate pain control with pain medications Otherwise, patient denies any fever, chills, nausea, vomiting, abdominal pain, chest pain, palpitations, shortness of breath, headaches, dizziness. OBJECTIVE: Vital Signs Period Temp Pulse Resp BP Sys/Sanders Pulse Ox Last 24 Hr 98.0 F-100 F 72-109 16-18 128-155/61-86 98-100 GENERAL: The patient is awake, alert, and fully oriented, in no acute distress. EYES: PERRL, sclera anicteric, conjunctiva clear. ENT: Oropharynx clear without exudates, moist mucous membranes. LUNGS: CTA b/ with no wheezes, no crackles, no accessory muscle use. HEART: RRR, Normal S1 and S2 without murmur, rub or gallop. ABDOMEN: Soft, nontender, nondistended, normoactive bowel sounds. EXTREMITIES: No edema. SKIN: (+)[id number] large wound of the bag with surgical dressing (+) serosanguious fluid. Laboratory Results 06/13/18 07:10 06/13/18 07:10 Active Medications Generic Name Dose Route Start Last Admin Trade Name Freq PRN Reason Stop Dose Admin Acetaminophen 650 mg 06/12/18 22:00 06/13/18 10:48 Tylenol - PO 650 mg Q4HPO KRISTIAN Administration Albuterol Sulfate 1 amp 06/12/18 18:02 Ventolin 0.083% Nebulizer Soln - NEB Q4H PRN SHORT OF BREATH/WHEEZING Lactated Ringer's 1,000 mls @ 100 mls/hr 06/12/18 18:02 Lactated Ringers Solution IV ASDIR KRISTIAN Piperacillin Sod/Tazobactam 50 mls @ 100 mls/hr 06/13/18 02:00 Sod 3.375 gm/ Dextrose IVPB Q8H-IV KRISTIAN Insulin Aspart 1 vial 06/12/18 22:00 06/13/18 11:39 Novolog Vial Sliding Scale - SQ 10 units ACHS KRISTIAN Administration Protocol Morphine Sulfate 2 mg 06/12/18 18:02 06/13/18 11:29 Morphine Sulfate IVPUSH 2 mg Q6H PRN Administration PAIN LEVEL 7 - 10 Oxycodone HCl 5 mg 06/12/18 17:43 Roxicodone - PO Q6H PRN PAIN LEVEL 4 - 6 Vancomycin HCl 1,000 mg 06/13/18 05:30 Vancomycin (Pre-Docked) IVPB DAILY KRISTIAN Protocol Vancomycin HCl 1,000 mg 06/13/18 17:00 Vancomycin (Pre-Docked) IVPB 06/13/18 17:01 ONCE ONE ASSESSMENT/PLAN: Patient is a 43 year old male who presented for back pain annd was found to have a large back abscess. Patient admitted to med/surg for further evaluation and management. #Left Back Abscess with Multiple Abscesses (L paraspinal area, axilla, chest) -Continue Vancomycin 1g IVPB daily (Day #2) and Zosyn 3.375g IVPB q8h (Day #2) -S/P I&D of back abscess POD #1 -Patient wound cultures positive for MRSA -Blood cultures NGTD -isolation precautions -IV LR @100mls/hr, may stop if tolerating PO -Pain control with Morphine 2mg Q6H PRN, Roxicodone 5mg Q6H PRN, and Tylenol 650mg po Q4H HTN-controlled -currently not on BP meds -will continue to monitor HLD -On no medication. -LDL <70 IDDMII -A1c 10.9% -Resume 30u lantus AM, 8U insulin before meals -ISS -BGM DEVANG -Resolved -Continue to monitor Elevated Alkaline Phosphatase -currently asymptomatic. -U/S revealed fatty infiltrate with gallbladder polyps -Continues to trend -Will continue to monitor History of Asthma -currently not in exacerbation -Continue with Ventolin PRN F/E/N -IV LR @100mls/hr -Electrolytes wnl -Diabetic/Sodiu, controlled diet Prophylaxis -SCD's for DVT -No GI required Disposition -Full code -Continue IV Abx Pati Corona [id number] Visit type - Emergency Visit Emergency Visit: Yes ED Registration Date: 06/11/18 Care time: The patient presented to the Emergency Department on the above date and was hospitalized for further evaluation of their emergent condition. - New Patient This patient is new to me today: Yes Date on this admission: 06/13/18 - Critical Care Critical Care patient: No
--- NOTE | 2018-06-13 14:00 | PN ---
Progress Note, Physician History of Present Illness: doing well post op still with some leak from the wound cx noted - Current Medication List Current Medications: Active Medications Acetaminophen (Tylenol -) 650 mg PO Q4HPO KRISTIAN Last Admin: 06/13/18 10:48 Dose: 650 mg Albuterol Sulfate (Ventolin 0.083% Nebulizer Soln -) 1 amp NEB Q4H PRN PRN Reason: SHORT OF BREATH/WHEEZING Lactated Ringer's (Lactated Ringers Solution) 1,000 mls @ 100 mls/hr IV ASDIR KRISTIAN Piperacillin Sod/Tazobactam (Sod 3.375 gm/ Dextrose) 50 mls @ 100 mls/hr IVPB Q8H-IV KRISTIAN Insulin Aspart (Novolog Vial Sliding Scale -) 1 vial SQ ACHS [facility]; Protocol Last Admin: 06/13/18 11:39 Dose: 10 units Insulin Detemir (Levemir Vial) 30 units SQ ACBK KRISTIAN Morphine Sulfate (Morphine Sulfate) 2 mg IVPUSH Q6H PRN PRN Reason: PAIN LEVEL 7 - 10 Last Admin: 06/13/18 11:29 Dose: 2 mg Oxycodone HCl (Roxicodone -) 5 mg PO Q6H PRN PRN Reason: PAIN LEVEL 4 - 6 Vancomycin HCl (Vancomycin (Pre-Docked)) 1,000 mg IVPB DAILY [facility]; Protocol Vancomycin HCl (Vancomycin (Pre-Docked)) 1,000 mg IVPB ONCE ONE Stop: 06/13/18 17:01 - Objective Vital Signs: Vital Signs Temperature 98.0 F 06/13/18 06:00 Pulse Rate 72 06/13/18 06:00 Respiratory Rate 16 06/13/18 06:00 Blood Pressure 151/66 06/13/18 06:00 O2 Sat by Pulse Oximetry (%) 99 06/12/18 21:31 Constitutional: Yes: No Distress, Calm Cardiovascular: Yes: Regular Rate and Rhythm Respiratory: Yes: Regular, CTA Bilaterally Gastrointestinal: Yes: Normal Bowel Sounds, Soft Musculoskeletal: Yes: WNL Extremities: Yes: WNL Wound/Incision: Yes: Dressing Dry and Intact Neurological: Yes: Alert, Oriented Psychiatric: Yes: Alert, Oriented Labs: CBC, BMP 06/13/18 07:10 06/13/18 07:10 INR, PTT INR 1.27 (0.83-1.09) H 06/12/18 05:30 Assessment/Plan Problem List - Problems (1) Abscess Code(s): L02.91 - CUTANEOUS ABSCESS, UNSPECIFIED (2) Sepsis Code(s): A41.9 - SEPSIS, UNSPECIFIED ORGANISM Qualifiers: Sepsis type: sepsis due to unspecified organism Qualified Code(s): A41.9 - Sepsis, unspecified organism (3) Diabetes Code(s): E11.9 - TYPE 2 DIABETES MELLITUS WITHOUT COMPLICATIONS (4) Asthma Code(s): J45.909 - UNSPECIFIED ASTHMA, UNCOMPLICATED Qualifiers: Asthma severity: mild Asthma persistence: intermittent Asthma complication type: uncomplicated Qualified Code(s): J45.20 - Mild intermittent asthma, uncomplicated plan we will continue current abx await for finalization of bacteria wound care rest as per the team
--- NOTE | 2018-06-13 14:36 | PN ---
Teaching Attending Note Name of Resident: Pati Corona ATTENDING PHYSICIAN STATEMENT I saw and evaluated the patient. I reviewed the resident's note and discussed the case with the resident. I agree with the resident's findings and plan as documented. SUBJECTIVE: Mr Walker says he is feeling better after I&D. Still with pain but much improved. Denies cp, sob, n/v. OBJECTIVE: Last Vital Signs Temp Pulse Resp BP Pulse Ox 36.7 C 78 20 130/60 98 06/13/18 14:22 06/13/18 14:22 06/13/18 14:22 06/13/18 14:22 06/13/18 09:00 Gen: nad Pulm: ctab w/o w/r/r CV: rrr w/o m/r/g Abd: +bs, s/nt/nd Ext: no c/c/e Back: large wrapping with serosanginous drainage CBC, BMP 06/13/18 07:10 06/13/18 07:10 ASSESSMENT AND PLAN: (1) Abscess Assessment/Plan: -appreciate surgical assistance -s/p I&D -wound cultures showing presumptive MRSA Code(s): L02.91 - CUTANEOUS ABSCESS, UNSPECIFIED (2) Sepsis Assessment/Plan: -s/p I&D -Id following -continue vancomycin and zosyn Code(s): A41.9 - SEPSIS, UNSPECIFIED ORGANISM Qualifiers: Sepsis type: sepsis due to unspecified organism Qualified Code(s): A41.9 - Sepsis, unspecified organism (3) Diabetes Assessment/Plan: -FSBS and SSI -diabetic diet Code(s): E11.9 - TYPE 2 DIABETES MELLITUS WITHOUT COMPLICATIONS (4) Asthma Assessment/Plan: -not in exacerbation -prn albuterol Code(s): J45.909 - UNSPECIFIED ASTHMA, UNCOMPLICATED Qualifiers: Asthma severity: mild Asthma persistence: intermittent Asthma complication type: uncomplicated Qualified Code(s): J45.20 - Mild intermittent asthma, uncomplicated Problem List - Problems (1) Abscess Code(s): L02.91 - CUTANEOUS ABSCESS, UNSPECIFIED (2) Sepsis Code(s): A41.9 - SEPSIS, UNSPECIFIED ORGANISM Qualifiers: Sepsis type: sepsis due to unspecified organism Qualified Code(s): A41.9 - Sepsis, unspecified organism (3) Diabetes Code(s): E11.9 - TYPE 2 DIABETES MELLITUS WITHOUT COMPLICATIONS (4) Asthma Code(s): J45.909 - UNSPECIFIED ASTHMA, UNCOMPLICATED Qualifiers: Asthma severity: mild Asthma persistence: intermittent Asthma complication type: uncomplicated Qualified Code(s): J45.20 - Mild intermittent asthma, uncomplicated
[2018-06-13] MEDS ORDERED: VANCOMYCIN 1 GM in D5W (PRE-DOCKED) 1,000 MG/250 ML IVPB ONE (17:00)
[2018-06-13] MEDS: LACTATED RINGERS SOLUTION 1,000 ML IV SCH (17:06)
[2018-06-14] MEDS: LACTATED RINGERS SOLUTION 1,000 ML IV SCH ×2 (02:55→19:04)
[2018-06-14] MEDS: ACETAMINOPHEN 325 MG TABLET (FP) PO SCH ×8 (05:24→21:40)
[2018-06-14] MEDS ORDERED: DEXTROSE 5%-WATER - 100 ML IVPB ONE (06:25)
[2018-06-14] MEDS ORDERED: PIPERACILLIN/TAZOBACTAM 3.375 GM VIAL IVPB ONE (06:25)
[2018-06-14] MEDS: INSULIN (LEVEMIR) 100 UNITS/ML UNITS SQ SCH (07:01)
[2018-06-14] MEDS: PIPERACILLIN/TAZOB 3.375 GM 3.375 GM in DEXTROSE 5%-WATER - 50 ML IVPB SCH ×2 (07:01→07:40)
[2018-06-14] MEDS: INSULIN SLIDING SCALE (NOVOLOG) 1 VIAL SQ SCH ×4 (07:02→21:41)
[2018-06-14 08:15] LABS: HEMATOCRIT 34.6 % (35.4-49); MCH 30.3 pg (25.7-33.7); MCHC 34.7 g/dl (32.0-35.9); MEAN CELL VOLUME 87.4 fl (80-96); MEAN PLT VOLUME 7.8 fl (7.5-11.1); PLATELET COUNT 377 K/MM3 (134-434); RBC 3.96 M/mm3 (4.00-5.60); RDW 14.3 % (11.9-15.9); WHITE BLOOD COUNT 9.9 K/mm3 (4.0-10.0)
[2018-06-14 08:19] LABS: ANION GAP 9 MMOL/L (8-16); BLOOD UREA NITROGEN 20 mg/dL (7-18); CALCIUM 7.6 mg/dL (8.5-10.1); CHLORIDE 97 mmol/L (98-107); CO2 26 mmol/L (21-32); CREATININE 0.9 mg/dL (0.55-1.3); POTASSIUM 4.6 mmol/L (3.5-5.1); SODIUM 132 mmol/L (136-145)
[2018-06-14] MEDS: MORPHINE SULFATE 2 MG/ML VIAL IVPUSH PRN (08:30)
[2018-06-14 08:46] LABS: GLUCOSE,RANDOM 345 mg/dL (74-106)
--- NOTE | 2018-06-14 10:12 | PN ---
Progress Note (short form) - Note Progress Note: surgery POD #2 I&D of back abscess seen and examined at bedside with Dr Barker. Patient states pain is controlled. He is tolerating his diet and denies any CP, SOB, N/V , fever or chills. Sates his pain is much improved from pre-op Vital Signs Temp 98.1 F 06/14/18 06:00 Pulse 72 06/14/18 06:00 Resp 20 06/14/18 06:00 BP 142/72 06/14/18 06:00 Pulse Ox 98 06/13/18 09:00 Intake & Output 06/13/18 06/13/18 06/14/18 11:59 23:59 11:59 Intake Total 214 376 5510 Balance 344 475 8278 Weight 168 lb Intake: IV 800 Lactated Ringers Solution 800 1,000 ml @ 100 mls/hr IV ASDIR KRISTIAN Rx#: [id number] IVPB 200 Oral 280 720 Other: Voiding Method Toilet Toilet # Unmeasured Voids Void 1 1 1 Bowel Movement Yes # Bowel Movements 1 Height 5 ft 5 in Body Mass Index (BMI) 27.9 CBC, BMP 06/14/18 06:30 06/14/18 06:30 PE: A&Ox3, NAD Unlabored resp on RA Back: wound packing removed with fibrinous tissue seen at base. no evidence of tracking or bone exposure. surrounding tissue intact with improving erythema, no tracking erythema or edema. no active d/c or foul odor. wound repacked with wet to dry Kurlex. Patient tolerated. Problem List - Problems (1) Abscess Assessment/Plan: POD #2 I&D of large back abscess in patient with multiple comorbidities, doing well 1) continue daily dressing changes as ordered, wet to dry 2) IV abx per ID 3) pain control 4) encourage IS 5) Surgery to follow Evaluation and plan discussed with Dr Barker Code(s): L02.91 - CUTANEOUS ABSCESS, UNSPECIFIED
--- NOTE | 2018-06-14 11:11 | PN ---
Physical Exam: SUBJECTIVE: Patient seen and examined by me at bedside. No acute events overnight S/P I&D of back abscess POD #2 Reports pain is controlled with the pain medications Tolerating PO intake Otherwise, patient denies any fever, chills, nausea, vomiting, abdominal pain, chest pain, palpitations, shortness of breath, headaches, dizziness. OBJECTIVE: Vital Signs Period Temp Pulse Resp BP Sys/Sanders Pulse Ox Last 24 Hr 98.0 F-98.5 F 69-78 20-20 130-143/59-76 GENERAL: The patient is awake, alert, and fully oriented, in no acute distress. EYES: PERRL, sclera anicteric, conjunctiva clear. ENT: Oropharynx clear without exudates, moist mucous membranes. LUNGS: CTA b/ with no wheezes, no crackles, no accessory muscle use. HEART: RRR, Normal S1 and S2 without murmur, rub or gallop. ABDOMEN: Soft, nontender, nondistended, normoactive bowel sounds. EXTREMITIES: No edema. SKIN: (+)[id number] large wound of the bag with surgical dressing (+) serosanguious fluid. Laboratory Results 06/14/18 06:30 06/14/18 06:30 Active Medications Generic Name Dose Route Start Last Admin Trade Name Freq PRN Reason Stop Dose Admin Acetaminophen 650 mg 06/12/18 22:00 06/14/18 07:41 Tylenol - PO Not Given Q4HPO [facility] Albuterol Sulfate 1 amp 06/12/18 18:02 Ventolin 0.083% Nebulizer Soln - NEB Q4H PRN SHORT OF BREATH/WHEEZING Lactated Ringer's 1,000 mls @ 100 mls/hr 06/12/18 18:02 06/14/18 02:55 Lactated Ringers Solution IV 100 mls/hr ASDIR [facility] Administration Piperacillin Sod/Tazobactam 50 mls @ 100 mls/hr 06/13/18 02:00 Sod 3.375 gm/ Dextrose IVPB Q8H-IV K[facility]STIAN Insulin Aspart 1 vial 06/12/18 22:00 06/14/18 07:02 Novolog Vial Sliding Scale - SQ 8 units ACHS [facility] Administration Protocol Insulin Detemir 30 units 06/14/18 07:00 06/14/18 07:01 Levemir Vial SQ 30 units ACBK [facility] Administration Morphine Sulfate 2 mg 06/12/18 18:02 06/14/18 08:30 Morphine Sulfate IVPUSH 2 mg Q6H PRN Administration PAIN LEVEL 7 - 10 Oxycodone HCl 5 mg 06/12/18 17:43 Roxicodone - PO Q6H PRN PAIN LEVEL 4 - 6 Vancomycin HCl 1,000 mg 06/13/18 05:30 Vancomycin (Pre-Docked) IVPB DAILY [facility] Protocol ASSESSMENT/PLAN: Patient is a 43 year old male who presented for back pain annd was found to have a large back abscess. Patient admitted to med/surg for further evaluation and management. #Left Back Abscess with Multiple Abscesses (L paraspinal area, axilla, chest) -Continue Vancomycin 1g IVPB daily (Day #3) and Zosyn 3.375g IVPB q8h (Day #3) -S/P I&D of back abscess POD #2 -Patient wound cultures positive for MRSA -Blood cultures NGTD -isolation precautions -IV LR @100mls/hr, may stop if tolerating PO -Pain control with Morphine 2mg Q6H PRN, Roxicodone 5mg Q6H PRN, and Tylenol 650mg po Q4H HTN-controlled -Resume Lisinopril 5mg daily -will continue to monitor HLD -On no medication. -LDL <70 IDDMII -A1c 10.9% -Continue 30u lantus AM, 8U insulin before meals -ISS -BGM DEVANG -Resolved -Continue to monitor Elevated Alkaline Phosphatase -currently asymptomatic. -U/S revealed fatty infiltrate with gallbladder polyps -Continues to trend -Will continue to monitor History of Asthma -currently not in exacerbation -Continue with Ventolin PRN F/E/N -IV LR @100mls/hr -Electrolytes wnl -Diabetic/Sodium controlled diet Prophylaxis -SCD's for DVT -No GI required Disposition -Full code -Continue IV Abx Pati Corona [id number] Visit type - Emergency Visit Emergency Visit: Yes ED Registration Date: 06/11/18 Care time: The patient presented to the Emergency Department on the above date and was hospitalized for further evaluation of their emergent condition. - New Patient This patient is new to me today: No - Critical Care Critical Care patient: No
--- NOTE | 2018-06-14 14:18 | PN ---
Progress Note, Physician History of Present Illness: patient stable no new issues cx result noted awaiting sensitivities - Current Medication List Current Medications: Active Medications Acetaminophen (Tylenol -) 650 mg PO Q4HPO [facility]IAN Last Admin: 06/14/18 11:56 Dose: Not Given Albuterol Sulfate (Ventolin 0.083% Nebulizer Soln -) 1 amp NEB Q4H PRN PRN Reason: SHORT OF BREATH/WHEEZING Lactated Ringer's (Lactated Ringers Solution) 1,000 mls @ 100 mls/hr IV ASDIR [facility] Last Admin: 06/14/18 02:55 Dose: 100 mls/hr Piperacillin Sod/Tazobactam (Sod 3.375 gm/ Dextrose) 50 mls @ 100 mls/hr IVPB Q8H-IV K[facility]STIAN Insulin Aspart (Novolog Vial Sliding Scale -) 1 vial SQ ACHS [facility]; Protocol Last Admin: 06/14/18 11:56 Dose: Not Given Insulin Detemir (Levemir Vial) 30 units SQ ACBK [facility] Last Admin: 06/14/18 07:01 Dose: 30 units Morphine Sulfate (Morphine Sulfate) 2 mg IVPUSH Q6H PRN PRN Reason: PAIN LEVEL 7 - 10 Last Admin: 06/14/18 08:30 Dose: 2 mg Oxycodone HCl (Roxicodone -) 5 mg PO Q6H PRN PRN Reason: PAIN LEVEL 4 - 6 Vancomycin HCl (Vancomycin (Pre-Docked)) 1,000 mg IVPB DAILY [facility]; Protocol - Objective Vital Signs: Vital Signs Temperature 97.6 F 06/14/18 10:00 Pulse Rate 86 06/14/18 10:00 Respiratory Rate 20 06/14/18 10:00 Blood Pressure 154/80 06/14/18 10:00 O2 Sat by Pulse Oximetry (%) 98 06/13/18 09:00 Constitutional: Yes: No Distress, Calm Cardiovascular: Yes: Regular Rate and Rhythm Respiratory: Yes: Regular, CTA Bilaterally Gastrointestinal: Yes: Normal Bowel Sounds, Soft Musculoskeletal: Yes: WNL Extremities: Yes: WNL Wound/Incision: Yes: Dressing Dry and Intact Neurological: Yes: Alert, Oriented Psychiatric: Yes: Alert, Oriented Labs: CBC, BMP 06/14/18 06:30 06/14/18 06:30 INR, PTT INR 1.27 (0.83-1.09) H 06/12/18 05:30 Assessment/Plan Problem List - Problems (1) Abscess Code(s): L02.91 - CUTANEOUS ABSCESS, UNSPECIFIED (2) Sepsis Code(s): A41.9 - SEPSIS, UNSPECIFIED ORGANISM Qualifiers: Sepsis type: sepsis due to unspecified organism Qualified Code(s): A41.9 - Sepsis, unspecified organism (3) Diabetes Code(s): E11.9 - TYPE 2 DIABETES MELLITUS WITHOUT COMPLICATIONS (4) Asthma Code(s): J45.909 - UNSPECIFIED ASTHMA, UNCOMPLICATED Qualifiers: Asthma severity: mild Asthma persistence: intermittent Asthma complication type: uncomplicated Qualified Code(s): J45.20 - Mild intermittent asthma, uncomplicated plan will continue vanco await for sensitivities again wound care rest as per the team
[2018-06-14] MEDS: oxyCODONE HCL 5 MG TABLET PO PRN ×2 (14:33→21:41)
--- NOTE | 2018-06-14 14:33 | PN ---
Teaching Attending Note Name of Resident: Pati Corona ATTENDING PHYSICIAN STATEMENT I saw and evaluated the patient. I reviewed the resident's note and discussed the case with the resident. I agree with the resident's findings and plan as documented with exceptions below. SUBJECTIVE: Patient seen and examined. back symptoms improved. Also reports lumps in left axilla and over left chest. No fevers/chills. states home blood glucose 100s and compliant with monitoring and insulin administration. Denies any recent drug use. OBJECTIVE: Vital Signs Period Temp Pulse Resp BP Sys/Sanders Pulse Ox Last 24 Hr 97.6 F-98.5 F 69-86 20-20 133-154/59-80 Intake & Output 06/11/18 06/12/18 06/13/18 06/14/18 23:59 23:59 23:59 23:59 Intake Total 1250 1000 1000 Output Total 200 Balance 1050 1000 1000 Weight 168 lb 168 lb General: lying in bed in no acute distress Back; wound with fibrinous base, no active discharge or foul smell, no bone exposed, minimal surrounding erythema, no streaking noted Extremities: left axially 1 cm indurated tender swelling x 3, Chest: similar isolated swelling below left nipple Home Medications Medication Instructions Recorded Albuterol Sulfate Inhaler - 1 - 2 inh PO QID PRN 06/12/18 [Ventolin Hfa Inhaler -] Insulin Glargine,Hum.rec.anlog 30 unit SQ DAILY 06/12/18 [Lantus] Insulin Regular [NOVOLIN R VIAL 8 unit SQ AC 06/12/18 *IVPUSH / ER / ICU Only*] Active Medications Acetaminophen (Tylenol -) 650 mg PO Q4HPO [facility] Last Admin: 06/14/18 14:33 Dose: 650 mg Albuterol Sulfate (Ventolin 0.083% Nebulizer Soln -) 1 amp NEB Q4H PRN PRN Reason: SHORT OF BREATH/WHEEZING Lactated Ringer's (Lactated Ringers Solution) 1,000 mls @ 100 mls/hr IV ASDIR [facility] Last Admin: 06/14/18 02:55 Dose: 100 mls/hr Piperacillin Sod/Tazobactam (Sod 3.375 gm/ Dextrose) 50 mls @ 100 mls/hr IVPB Q8H-IV K[facility]STIAN Vancomycin HCl 1,250 mg/ (Dextrose) 250 mls @ 250 mls/2 hr IVPB Q24H [facility]; Protocol Insulin Aspart (Novolog Vial Sliding Scale -) 1 vial SQ ACHS [facility]; Protocol Last Admin: 06/14/18 11:56 Dose: Not Given Insulin Detemir (Levemir Vial) 30 units SQ ACBK [facility] Last Admin: 06/14/18 07:01 Dose: 30 units Lisinopril (Prinivil) 5 mg PO DAILY [facility] Oxycodone HCl (Roxicodone -) 5 mg PO Q6H PRN PRN Reason: PAIN LEVEL 4 - 6 Last Admin: 06/14/18 14:33 Dose: 5 mg Laboratory Results - last 24 hr 06/13/18 06/13/18 06/14/18 16:34 21:55 06:30 WBC 9.9 RBC 3.96 L Hgb 12.0 Hct 34.6 L MCV 87.4 MCH 30.3 MCHC 34.7 RDW 14.3 Plt Count 377 MPV 7.8 Sodium Potassium Chloride Carbon Dioxide Anion Gap BUN Creatinine Creat Clearance w eGFR POC Glucometer 358 369 Random Glucose Calcium 06/14/18 06/14/18 06:30 06:51 WBC RBC Hgb Hct MCV MCH MCHC RDW Plt Count MPV Sodium 132 L Potassium 4.6 Chloride 97 L Carbon Dioxide 26 Anion Gap 9 BUN 20 H Creatinine 0.9 Creat Clearance w eGFR > 60 POC Glucometer 349 Random Glucose 345 H* Calcium 7.6 L ASSESSMENT AND PLAN: 43 yom with PMHx of IDDM, HTN, HLD, Asthma, 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) all for abscesses on the L side of his body (chest, LUE, back, perianal) admitted with back MRSA abscess s/p I&D and left axillary swellings -MRSA back abscess s/p I&D -Left axillary swellings, suspected abscesses -DEVANG suspect from infection/hypovolumia from ongoing hyperglycemia -IDDM, poorly controlled (A1c > 10) -HTN -HLD -Asthma -Proteiuria Plan: Clinically improved. Vancomycin. ID/surgery input noted. Wound care/dressing, follow up wound cx. start lisinopril 5 mg daily, monitor lytes. Patient counseled on tight blood glucose control, need for home blood glucose monitoring . Levemir, ISS, resume premeal once PO intake stable. Encourage oral fluid intake. d/c iv morphine. Tylenol/oxycodone prn. DVTPPX start lovenox Dispo CM consult as anticipate with arrangements for wound packing/dressing. Plan discussed with patient in detail, all questions answered.
[2018-06-14] MEDS: VANCOMYCIN 1,250 MG in DEXTROSE 5%-WATER - 250 ML IVPB SCH (15:24)
[2018-06-15] MEDS: LACTATED RINGERS SOLUTION 1,000 ML IV SCH ×3 (02:13→17:19)
[2018-06-15] MEDS: ACETAMINOPHEN 325 MG TABLET (FP) PO SCH ×6 (06:25→21:38)
[2018-06-15] MEDS: oxyCODONE HCL 5 MG TABLET PO PRN ×2 (06:27→17:18)
[2018-06-15] MEDS: INSULIN (LEVEMIR) 100 UNITS/ML UNITS SQ SCH (06:29)
[2018-06-15] MEDS: INSULIN SLIDING SCALE (NOVOLOG) 1 VIAL SQ SCH ×4 (06:29→21:39)
[2018-06-15] MEDS ORDERED: INSULIN (NOVOLOG) ASPART 100 UNITS/ML 10ML VIAL ONE (06:58)
[2018-06-15] MEDS ORDERED: MORPHINE SULFATE 2 MG/ML VIAL IVPUSH PRN (08:23)
--- NOTE | 2018-06-15 08:25 | PN ---
Progress Note (short form) - Note Progress Note: surgery POD #3 I&D of back abscess seen and examined at bedside. Patient states pain is controlled. He is tolerating his diet and denies any CP, SOB, N/V, fever or chills. Sates his pain continues to improve although dressing changes are painful as expected. Vital Signs Temp 98.8 F 06/15/18 06:00 Pulse 86 06/15/18 06:00 Resp 20 06/15/18 06:00 BP 155/75 06/15/18 06:00 Pulse Ox 100 06/14/18 21:00 Intake & Output 06/14/18 06/14/18 06/15/18 11:59 23:59 11:59 Intake Total 1000 2280 1100 Balance 1000 2280 1100 Intake: IV 800 1000 1100 Lactated Ringers Solution 800 1000 1100 1,000 ml @ 100 mls/hr IV ASDIR KRISTIAN Rx#: [id number] IVPB 200 200 Oral 1080 Other: Voiding Method Toilet Toilet # Unmeasured Voids Void 1 1 3 Bowel Movement Yes # Bowel Movements 1 CBC, BMP 06/14/18 06:30 06/14/18 06:30 PE: A&Ox3, NAD Unlabored resp on RA Back: wound packing removed with fibrinous tissue seen at base. no evidence of tracking or bone exposure. signs of early skin breakdown at wound edges however most of the surrounding tissue intact with improving erythema, no tracking erythema or edema. no evidence of collection, no active d/c or foul odor. wound repacked with wet to dry Kurlex. Patient tolerated, but required pain medication. Problem List - Problems (1) Abscess Assessment/Plan: POD #3 I&D of large back abscess in patient with multiple comorbidities, doing well. 1) continue daily dressing changes as ordered, wet to dry-Morphine ordered for dressing changes ONLY-document skin changes. 2) IV abx per ID 3) pain control 4) encourage IS 5) frequent position changes. Evaluation and plan discussed with Dr Barker Code(s): L02.91 - CUTANEOUS ABSCESS, UNSPECIFIED
--- NOTE | 2018-06-15 09:32 | PN ---
Physical Exam: SUBJECTIVE: Patient seen and examined by me at bedside. No acute events overnight Patient reports pain in the back from the wound but has adequate pain control with medications Otherwise, patient denies any fever, chills, nausea, vomiting, abdominal pain, chest pain, palpitations, shortness of breath, headaches, dizziness. OBJECTIVE: Vital Signs Period Temp Pulse Resp BP Sys/Sanders Pulse Ox Last 24 Hr 97.6 F-98.8 F 73-86 20-20 135-155/65-80 100 GENERAL: The patient is awake, alert, and fully oriented, in no acute distress. EYES: PERRL, sclera anicteric, conjunctiva clear. ENT: Oropharynx clear without exudates, moist mucous membranes. LUNGS: CTA b/ with no wheezes, no crackles, no accessory muscle use. HEART: RRR, Normal S1 and S2 without murmur, rub or gallop. ABDOMEN: Soft, nontender, nondistended, normoactive bowel sounds. EXTREMITIES: No edema. SKIN: (+)[id number] large wound of the bag with surgical dressing (+) serosanguious fluid. Laboratory Results - last 24 hr 06/14/18 06/14/18 06/15/18 17:13 21:14 05:49 POC Glucometer 339 226 256 Active Medications Generic Name Dose Route Start Last Admin Trade Name Freq PRN Reason Stop Dose Admin Acetaminophen 650 mg 06/12/18 22:00 06/15/18 06:28 Tylenol - PO 650 mg Q4HPO KRISTIAN Administration Albuterol Sulfate 1 amp 06/12/18 18:02 Ventolin 0.083% Nebulizer Soln - NEB Q4H PRN SHORT OF BREATH/WHEEZING Enoxaparin Sodium 40 mg 06/15/18 10:00 Lovenox - SQ DAILY [facility] Lactated Ringer's 1,000 mls @ 100 mls/hr 06/12/18 18:02 06/15/18 02:13 Lactated Ringers Solution IV 100 mls/hr ASDIR [facility]ST[facility] Administration Piperacillin Sod/Tazobactam 50 mls @ 100 mls/hr 06/14/18 18:00 Sod 3.375 gm/ Dextrose IVPB Q8H-IV [facility]STIAN Vancomycin HCl 1,250 mg/ 250 mls @ 250 mls/2 hr 06/14/18 14:30 06/14/18 15:24 Dextrose IVPB 250 mls/2 hr Q24H [facility] Administration Protocol Insulin Aspart 1 vial 06/12/18 22:00 06/15/18 06:29 Novolog Vial Sliding Scale - SQ 6 units ACHS [facility] Administration Protocol Insulin Detemir 30 units 06/14/18 07:00 06/15/18 06:29 Levemir Vial SQ 30 units ACBK [facility] Administration Lisinopril 5 mg 06/15/18 10:00 Prinivil PO DAILY [facility] Morphine Sulfate 2 mg 06/15/18 08:23 06/15/18 09:24 Morphine Sulfate IVPUSH 2 mg Q6H PRN Administration for DRESSING CHANGES ONLY Oxycodone HCl 5 mg 06/12/18 17:43 06/15/18 06:27 Roxicodone - PO 5 mg Q6H PRN Administration PAIN LEVEL 4 - 6 ASSESSMENT/PLAN: Patient is a 43 year old male who presented for back pain annd was found to have a large back abscess. Patient admitted to med/surg for further evaluation and management. #Left Back Abscess with Multiple Abscesses (L paraspinal area, axilla, chest) -Continue Vancomycin 1g IVPB daily (Day #4) and Zosyn 3.375g IVPB q8h (Day #4) -S/P I&D of back abscess POD #3 -Patient wound cultures positive for MRSA -Blood cultures NGTD -isolation precautions -IV LR @100mls/hr, may stop if tolerating PO and kidney function improves -Pain control with Morphine 2mg Q6H PRN, Roxicodone 5mg Q6H PRN, and Tylenol 650mg po Q4H -Continue wound packING with wet to dry Kurlex, as per surgical team HTN-controlled -Resume Lisinopril 5mg daily -will continue to monitor HLD -On no medication. -LDL <70 IDDMII -A1c 10.9% -Continue 30u levemir AM, 8U insulin before meals -ISS -BGM DEVANG -Resolved -Continue to monitor Elevated Alkaline Phosphatase -currently asymptomatic. -U/S revealed fatty infiltrate with gallbladder polyps -Continues to trend -Will continue to monitor History of Asthma -currently not in exacerbation -Continue with Ventolin PRN F/E/N -IV LR @100mls/hr -Electrolytes wnl -Diabetic/Sodium controlled diet Prophylaxis -Lovenox 40mg SQ daily for DVT -No GI required Disposition -Full code -Continue IV Abx. Due to location of abscess, patient would be unable to pack and clean wound on his own. Patient also homeless with no home address, therefore unable to receive VNS. Will likely need placement for management of wound. Pati Corona [id number] Visit type - Emergency Visit Emergency Visit: Yes ED Registration Date: 06/11/18 Care time: The patient presented to the Emergency Department on the above date and was hospitalized for further evaluation of their emergent condition. - New Patient This patient is new to me today: No - Critical Care Critical Care patient: No
--- NOTE | 2018-06-15 09:46 | OP ---
DATE OF OPERATION: 06/12/2018 PREOPERATIVE DIAGNOSIS: Soft tissue abscess of the back. POSTOPERATIVE DIAGNOSIS: Soft tissue abscess of the back. PROCEDURE: Incision and drainage of soft tissue abscess of the back. SURGEON: Herb Barker MD PASTORAL WORKER: Shadia Devi PA-C ANESTHESIA: General. OPERATIVE FINDINGS: There was an extensive soft tissue abscess of the back involving the skin and subcutaneous tissue, fascia and muscle in the midline of the back, slightly to the right of the midline. The rest of the findings were unremarkable. DESCRIPTION OF PROCEDURE: The patient was placed on the operating table in supine position, and after the induction of general anesthesia, the patient was turned to the right lateral decubitus position. The area around the abscess was prepped with Betadine and draped in a sterile fashion. A time-out was taken, and incision and drainage carried out using a scalpel. All loculations were broken up using either sharp or blunt dissection. Purulent drainage was sent for culture and sensitivity, and the wound was copiously irrigated with a combination of sterile saline and hydrogen peroxide. Hemostasis was secured with electrocautery, and then, the wound was liberally packed with saline-soaked Kerlix. Dry sterile dressings were placed, the procedure was terminated at this point, and the patient aroused from general anesthesia and transferred to the post-anesthesia care unit in stable condition, awake and alert. ESTIMATED BLOOD LOSS: 50 mL. REPLACEMENTS: Crystalloid. DRAINS: Kerlix packing. SPECIMENS: Culture and sensitivity of purulent drainage to Microbiology. I, Herb Barker, was physically present in the operating room from the time the patient was placed on the operating table until he was transferred to the post-anesthesia care unit in my accompaniment. MD SUNG Block/[id number] MTDD
[2018-06-15] MEDS ORDERED: PT OWN MED DRAWER 7, Y5N ONE ×2 (10:52→13:35)
[2018-06-15] MEDS: LISINOPRIL 5 MG TABLET (FP) PO SCH (10:53)
[2018-06-15] MEDS: ENOXAPARIN NA (PORCINE) 40 MG/0.4 ML DISP.SYRIN SQ SCH (10:53)
--- NOTE | 2018-06-15 11:06 | PN ---
Teaching Attending Note Name of Resident: Pati Corona ATTENDING PHYSICIAN STATEMENT I saw and evaluated the patient. I reviewed the resident's note and discussed the case with the resident. I agree with the resident's findings and plan as documented with exceptions below. SUBJECTIVE: Patient seen and examined. back and axillary symptoms improved. No new fevers/ chills or concerns. OBJECTIVE: Vital Signs Period Temp Pulse Resp BP Sys/Sanders Pulse Ox Last 24 Hr 97.5 F-98.8 F 73-86 20-20 135-155/65-75 99-100 Intake & Output 06/12/18 06/13/18 06/14/18 06/15/18 23:59 23:59 23:59 23:59 Intake Total 1250 1000 3280 1100 Output Total 200 Balance 1050 1000 3280 1100 Weight 168 lb General: lying in bed in no acute distress Extremities: left axilla softening and less induration left axillary lesions, no fluctuation noted, improved erythema Back: unchanged wound with fibrinous base, no surrounding swelling/erythema Home Medications Medication Instructions Recorded Albuterol Sulfate Inhaler - 1 - 2 inh PO QID PRN 06/12/18 [Ventolin Hfa Inhaler -] Insulin Glargine,Hum.rec.anlog 30 unit SQ DAILY 06/12/18 [Lantus] Insulin Regular [NOVOLIN R VIAL 8 unit SQ AC 06/12/18 *IVPUSH / ER / ICU Only*] Active Medications Acetaminophen (Tylenol -) 650 mg PO Q4HPO [facility] Last Admin: 06/15/18 06:28 Dose: 650 mg Albuterol Sulfate (Ventolin 0.083% Nebulizer Soln -) 1 amp NEB Q4H PRN PRN Reason: SHORT OF BREATH/WHEEZING Enoxaparin Sodium (Lovenox -) 40 mg SQ DAILY [facility] Last Admin: 06/15/18 10:53 Dose: 40 mg Lactated Ringer's (Lactated Ringers Solution) 1,000 mls @ 100 mls/hr IV ASDIR [facility] Last Admin: 06/15/18 02:13 Dose: 100 mls/hr Piperacillin Sod/Tazobactam (Sod 3.375 gm/ Dextrose) 50 mls @ 100 mls/hr IVPB Q8H-IV [facility] Vancomycin HCl 1,250 mg/ (Dextrose) 250 mls @ 250 mls/2 hr IVPB Q24H [facility]; Protocol Last Admin: 06/14/18 15:24 Dose: 250 mls/2 hr Insulin Aspart (Novolog Vial Sliding Scale -) 1 vial SQ ACHS [facility]; Protocol Last Admin: 06/15/18 06:29 Dose: 6 units Insulin Detemir (Levemir Vial) 30 units SQ ACBK [facility] Last Admin: 06/15/18 06:29 Dose: 30 units Lisinopril (Prinivil) 5 mg PO DAILY [facility] Last Admin: 06/15/18 10:53 Dose: 5 mg Morphine Sulfate (Morphine Sulfate) 2 mg IVPUSH Q6H PRN PRN Reason: for DRESSING CHANGES ONLY Last Admin: 06/15/18 09:24 Dose: 2 mg Oxycodone HCl (Roxicodone -) 5 mg PO Q6H PRN PRN Reason: PAIN LEVEL 4 - 6 Last Admin: 06/15/18 06:27 Dose: 5 mg Laboratory Results - last 24 hr 06/14/18 06/14/18 06/15/18 17:13 21:14 05:49 POC Glucometer 339 226 256 Microbiology 06/12/18 17:00 Back Gram Stain - Final 06/12/18 17:00 Back Wound Culture - Final S Aureus 06/11/18 22:35 Blood - Peripheral Venous Blood Culture - Preliminary NO GROWTH OBTAINED AFTER 72 HOURS, INCUBATION TO CONTINUE FOR 2 DAYS. 06/11/18 22:35 Blood - Peripheral Venous Blood Culture - Preliminary NO GROWTH OBTAINED AFTER 72 HOURS, INCUBATION TO CONTINUE FOR 2 DAYS. 06/11/18 22:49 Back Gram Stain - Final 06/11/18 22:49 Back Wound Culture - Final S Aureus 06/12/18 03:24 Urine - Urine Clean Catch Urine Culture - Final NO GROWTH OBTAINED ASSESSMENT AND PLAN: 43 yom with PMHx of IDDM, HTN, HLD, Asthma, 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) all for abscesses on the L side of his body (chest, LUE, back, perianal) admitted with back MRSA abscess s/p I&D and left axillary swellings -MRSA back abscess s/p I&D -Left axillary swellings, suspected abscesses -DEVANG suspect from infection/hypovolumia from ongoing hyperglycemia -IDDM, poorly controlled (A1c > 10) -HTN -HLD -Asthma -Proteiuria Plan: Clinically improved. Wound cx with MRSA. Discuss with ID to transition to PO, ?Bactrim vs Doxy. Continue Vancomycin. Surgery input noted, wound care. Monitor left axillary lesions, hot compresses, follow up with surgery if needs I &D. Improved today. Discuss with CM for disposition arrangements given current back wound that requires packing. Started lisinopril 5 mg daily, monitor lytes (Patient agreable to blood work today) Patient counseled on tight blood glucose control, need for home blood glucose monitoring . Levemir, ISS, resume premeal once PO intake stable. Encourage oral fluid intake. Tylenol/oxycodone prn. Taper oxycodone. DVTPPX lovenox Dispo planning pending ID/surgery input, wound care needs and dispo arrangements , in 24-48 hours. Plan discussed with patient in detail, all questions answered.
[2018-06-15 12:29] LABS: BASO % 0.4 % (0-2.0); EOS % 2.8 % (0-4.5); HEMATOCRIT 35.6 % (35.4-49); HEMOGLOBIN 12.1 GM/dL (11.7-16.9); LYMPH % 14.5 % (8-40); MCH 30.1 pg (25.7-33.7); MEAN CELL VOLUME 88.3 fl (80-96); MEAN PLT VOLUME 7.1 fl (7.5-11.1); MONO % 11.2 % (3.8-10.2); NEUT % 71.1 % (42.8-82.8); PLATELET COUNT 443 K/MM3 (134-434); RBC 4.03 M/mm3 (4.00-5.60); WHITE BLOOD COUNT 9.8 K/mm3 (4.0-10.0)
[2018-06-15 12:59] LABS: ANION GAP 8 MMOL/L (8-16); BLOOD UREA NITROGEN 14 mg/dL (7-18); CALCIUM 8.4 mg/dL (8.5-10.1); CHLORIDE 96 mmol/L (98-107); CO2 30 mmol/L (21-32); CREATININE 0.6 mg/dL (0.55-1.3); GLUCOSE,RANDOM 253 mg/dL (74-106); MAGNESIUM 1.9 mg/dL (1.8-2.4); PHOSPHOROUS 3.3 mg/dL (2.5-4.9); POTASSIUM 4.3 mmol/L (3.5-5.1); SODIUM 135 mmol/L (136-145)
--- NOTE | 2018-06-15 12:59 | PN ---
Progress Note, Physician History of Present Illness: wound pictures looked at dressing has been done patient feels good wbc has normalized - Current Medication List Current Medications: Active Medications Acetaminophen (Tylenol -) 650 mg PO Q4HPO [facility] Last Admin: 06/15/18 10:30 Dose: Not Given Albuterol Sulfate (Ventolin 0.083% Nebulizer Soln -) 1 amp NEB Q4H PRN PRN Reason: SHORT OF BREATH/WHEEZING Enoxaparin Sodium (Lovenox -) 40 mg SQ DAILY [facility] Last Admin: 06/15/18 10:53 Dose: 40 mg Lactated Ringer's (Lactated Ringers Solution) 1,000 mls @ 100 mls/hr IV ASDIR [facility] Last Admin: 06/15/18 02:13 Dose: 100 mls/hr Vancomycin HCl 1,250 mg/ (Dextrose) 250 mls @ 250 mls/2 hr IVPB Q24H [facility]; Protocol Last Admin: 06/14/18 15:24 Dose: 250 mls/2 hr Insulin Aspart (Novolog Vial Sliding Scale -) 1 vial SQ [facility]; Protocol Last Admin: 06/15/18 12:05 Dose: 4 units Insulin Detemir (Levemir Vial) 30 units SQ ACBK [facility] Last Admin: 06/15/18 06:29 Dose: 30 units Lisinopril (Prinivil) 5 mg PO DAILY [facility] Last Admin: 06/15/18 10:53 Dose: 5 mg Morphine Sulfate (Morphine Sulfate) 2 mg IVPUSH Q6H PRN PRN Reason: for DRESSING CHANGES ONLY Last Admin: 06/15/18 09:24 Dose: 2 mg Oxycodone HCl (Roxicodone -) 5 mg PO Q8H PRN PRN Reason: PAIN LEVEL 7 - 10 - Objective Vital Signs: Vital Signs Temperature 97.5 F L 06/15/18 09:32 Pulse Rate 78 06/15/18 09:32 Respiratory Rate 20 06/15/18 09:32 Blood Pressure 137/70 06/15/18 09:32 O2 Sat by Pulse Oximetry (%) 99 06/15/18 09:00 Constitutional: Yes: No Distress, Calm Cardiovascular: Yes: Regular Rate and Rhythm Respiratory: Yes: Regular, CTA Bilaterally Gastrointestinal: Yes: Normal Bowel Sounds, Soft Musculoskeletal: Yes: WNL Extremities: Yes: Other Wound/Incision: Yes: Dressing Dry and Intact Neurological: Yes: Alert, Oriented Psychiatric: Yes: Alert, Oriented Labs: CBC, BMP 06/15/18 12:02 INR, PTT INR 1.27 (0.83-1.09) H 06/12/18 05:30 Assessment/Plan Problem List - Problems (1) Abscess Code(s): L02.91 - CUTANEOUS ABSCESS, UNSPECIFIED (2) Sepsis Code(s): A41.9 - SEPSIS, UNSPECIFIED ORGANISM Qualifiers: Sepsis type: sepsis due to unspecified organism Qualified Code(s): A41.9 - Sepsis, unspecified organism (3) Diabetes Code(s): E11.9 - TYPE 2 DIABETES MELLITUS WITHOUT COMPLICATIONS (4) Asthma Code(s): J45.909 - UNSPECIFIED ASTHMA, UNCOMPLICATED Qualifiers: Asthma severity: mild Asthma persistence: intermittent Asthma complication type: uncomplicated Qualified Code(s): J45.20 - Mild intermittent asthma, uncomplicated plan continue vanco check vanco trough tomorrow wound care rest as per the team
[2018-06-15] MEDS: VANCOMYCIN 1,250 MG in DEXTROSE 5%-WATER - 250 ML IVPB SCH (13:41)
[2018-06-15] MEDS ORDERED: oxyCODONE HCL 5 MG TABLET PO PRN (17:43)
[2018-06-15] MEDS: PIPERACILLIN/TAZOB 3.375 GM 3.375 GM in DEXTROSE 5%-WATER - 50 ML IVPB SCH ×2 (22:44→22:45)
[2018-06-16] MEDS: LACTATED RINGERS SOLUTION 1,000 ML IV SCH (02:17)
[2018-06-16] MEDS: oxyCODONE HCL 5 MG TABLET PO PRN ×2 (02:18→18:02)
[2018-06-16] MEDS: ACETAMINOPHEN 325 MG TABLET (FP) PO SCH ×6 (02:19→22:54)
[2018-06-16] MEDS: INSULIN SLIDING SCALE (NOVOLOG) 1 VIAL SQ SCH ×5 (06:30→22:59)
[2018-06-16] MEDS: INSULIN (LEVEMIR) 100 UNITS/ML UNITS SQ SCH ×2 (06:30→23:00)
--- NOTE | 2018-06-16 08:41 | PN ---
Progress Note (short form) - Note Progress Note: 43yo M s/p I&D of large back abscess. Wound continues to have extensive necrotic tissue and collection and will need further washout and debridement in the OR. Last Vital Signs Temp Pulse Resp BP Pulse Ox 97.9 F 79 18 152/72 98 06/16/18 06:00 06/16/18 06:00 06/16/18 06:00 06/16/18 06:00 06/15/18 21:00 CBC, BMP 06/15/18 12:02 06/15/18 12:02 -plan on taking pt to the OR today for washout and debridement -please keep NPO -explained procedure to pt who agrees <Bossman Islas - Last Filed: 06/16/18 08:39> - Note Progress Note: Attending Surgeon As above; for return to OR today for ongoing debridement of non viable soft tissue and drainage of any residual collection; informed consent obtained. Herb Barker MD FACS <Herb Barker - Last Filed: 06/16/18 09:57>
[2018-06-16 08:57] LABS: BASO % 0.3 % (0-2.0); EOS % 2.6 % (0-4.5); HEMATOCRIT 38.6 % (35.4-49); HEMOGLOBIN 13.2 GM/dL (11.7-16.9); LYMPH % 13.8 % (8-40); MCH 30.4 pg (25.7-33.7); MCHC 34.2 g/dl (32.0-35.9); MEAN CELL VOLUME 88.7 fl (80-96); MEAN PLT VOLUME 7.7 fl (7.5-11.1); MONO % 9.3 % (3.8-10.2); PLATELET COUNT 482 K/MM3 (134-434); RBC 4.35 M/mm3 (4.00-5.60); RDW 13.8 % (11.9-15.9); WHITE BLOOD COUNT 11.3 K/mm3 (4.0-10.0)
[2018-06-16 09:19] LABS: ANION GAP 12 MMOL/L (8-16); BLOOD UREA NITROGEN 14 mg/dL (7-18); CALCIUM 8.6 mg/dL (8.5-10.1); CHLORIDE 96 mmol/L (98-107); CO2 25 mmol/L (21-32); CREATININE 0.9 mg/dL (0.55-1.3); POTASSIUM 5.2 mmol/L (3.5-5.1); SODIUM 133 mmol/L (136-145)
[2018-06-16 09:47] LABS: GLUCOSE,RANDOM 365 mg/dL (74-106)
[2018-06-16] MEDS ORDERED: DESFLURANE GAS 240 ML BOTTLE IH ONE ×2 (10:08→10:39)
[2018-06-16] MEDS ORDERED: MIDAZOLAM HCL 2 MG/2 ML SINGLE DOSE VIAL ONE (10:26)
[2018-06-16] MEDS ORDERED: PROPOFOL 20 ML ONE ×2 (10:27→11:03)
--- NOTE | 2018-06-16 10:28 | PN ---
Physical Exam: SUBJECTIVE: Patient seen and examined by me at bedside No acute events overnight Offers no complaints Plans to go to the OR today for ongoing debridement of non viable soft tissue and drainage of any residual collection Otherwise, patient denies any fever, chills, nausea, vomiting, abdominal pain, chest pain, palpitations, shortness of breath, headaches, dizziness. OBJECTIVE: Vital Signs Period Temp Pulse Resp BP Sys/Sanders Pulse Ox Last 24 Hr 97.9 F-98.4 F 75-90 18-20 133-153/64-81 98 GENERAL: The patient is awake, alert, and fully oriented, in no acute distress. EYES: PERRL, sclera anicteric, conjunctiva clear. ENT: Oropharynx clear without exudates, moist mucous membranes. LUNGS: CTA b/ with no wheezes, no crackles, no accessory muscle use. HEART: RRR, Normal S1 and S2 without murmur, rub or gallop. ABDOMEN: Soft, nontender, nondistended, normoactive bowel sounds. EXTREMITIES: No edema. SKIN: [id number] large wound of the bag with surgical dressing (+) serosanguious fluid. Laboratory Results 06/16/18 08:12 06/16/18 08:12 Active Medications Generic Name Dose Route Start Last Admin Trade Name Freq PRN Reason Stop Dose Admin Acetaminophen 650 mg 06/12/18 22:00 06/16/18 06:29 Tylenol - PO 650 mg Q4HPO [facility] Administration Albuterol Sulfate 1 amp 06/12/18 18:02 Ventolin 0.083% Nebulizer Soln - NEB Q4H PRN SHORT OF BREATH/WHEEZING Enoxaparin Sodium 40 mg 06/15/18 10:00 06/15/18 10:53 Lovenox - SQ 40 mg DAILY [facility] Administration Lactated Ringer's 1,000 mls @ 100 mls/hr 06/12/18 18:02 06/16/18 02:17 Lactated Ringers Solution IV 100 mls/hr ASDIR [facility] Administration Vancomycin HCl 1,250 mg/ 250 mls @ 250 mls/2 hr 06/14/18 14:30 06/15/18 13:41 Dextrose IVPB 250 mls/2 hr Q24H [facility] Administration Protocol Insulin Aspart 1 vial 06/12/18 22:00 06/16/18 06:30 Novolog Vial Sliding Scale - SQ Not Given ACHS [facility] Protocol Insulin Detemir 30 units 06/14/18 07:00 06/16/18 06:30 Levemir Vial SQ Not Given ACBK [facility] Lisinopril 5 mg 06/15/18 10:00 06/15/18 10:53 Prinivil PO 5 mg DAILY [facility] Administration Morphine Sulfate 2 mg 06/15/18 08:23 06/15/18 09:24 Morphine Sulfate IVPUSH 2 mg Q6H PRN Administration for DRESSING CHANGES ONLY Oxycodone HCl 5 mg 06/15/18 15:00 06/16/18 02:18 Roxicodone - PO 5 mg Q8H PRN Administration PAIN LEVEL 7 - 10 ASSESSMENT/PLAN: Patient is a 43 year old male who presented for back pain annd was found to have a large back abscess. Patient admitted to med/surg for further evaluation and management. #Left Back Abscess with Multiple Abscesses (L paraspinal area, axilla, chest) -Continue Vancomycin 1250g IVPB daily (Day #5) -S/P I&D of back abscess POD #3 with repeat one today -Patient wound cultures positive for MRSA -Blood cultures NGTD -isolation precautions -IV LR @100mls/hr -Pain control with Morphine 2mg Q6H PRN, Roxicodone 5mg Q6H PRN, and Tylenol 650mg po Q4H -Continue wound packing with wet to dry Kurlex, as per surgical team HTN-controlled -Resume Lisinopril 5mg daily -will continue to monitor HLD -On no medication. -LDL <70 IDDMII -A1c 10.9% -Continue 30u levemir AM, 8U insulin before meals -ISS -BGM DEVANG -Resolved -Continue to monitor Elevated Alkaline Phosphatase -currently asymptomatic. -U/S revealed fatty infiltrate with gallbladder polyps -Continues to trend -Will continue to monitor History of Asthma -currently not in exacerbation -Continue with Ventolin PRN F/E/N -IV LR @100mls/hr -Electrolytes wnl -Diabetic/Sodium controlled diet Prophylaxis -Lovenox 40mg SQ daily for DVT -No GI required Disposition -Full code -Continue IV Abx. Will go to the OR today for ongoing I&D Pati Corona [id number] Visit type - Emergency Visit Emergency Visit: Yes ED Registration Date: 06/11/18 Care time: The patient presented to the Emergency Department on the above date and was hospitalized for further evaluation of their emergent condition. - New Patient This patient is new to me today: No - Critical Care Critical Care patient: No
[2018-06-16] MEDS ORDERED: LIDOCAINE HCL/PF 2% SDV 5ML VIAL ONE (10:31)
[2018-06-16] MEDS ORDERED: SUCCINYLCHOLINE CHLORIDE 200 MG/10 ML VIAL ONE (10:31)
[2018-06-16] MEDS ORDERED: DEXAMETHASONE SOD PHOSPHATE 4 MG/1 ML VIAL ONE (10:31)
[2018-06-16] MEDS ORDERED: ROCURONIUM BROMIDE 50 MG/5 ML VIAL ONE (10:31)
[2018-06-16] MEDS ORDERED: ONDANSETRON 4 MG/2 ML VIAL ONE (10:31)
[2018-06-16] MEDS ORDERED: KETOROLAC TROMETHAMINE 30 MG/1 ML VIAL ONE (10:31)
[2018-06-16] MEDS ORDERED: KETAMINE HCL 200 MG/20 ML VIAL ONE (11:04)
--- NOTE | 2018-06-16 11:56 | OP ---
Operative Note - Note: Operative Date: 06/16/18 Pre-Operative Diagnosis: non viable tissue previous back I and D site Operation: excisional sharp debridement non viable skin/subcutaneous tissue/ muscle and fascia of the back/previous I and D site Findings: nonviable soft tissue muscle and fascia Post-Operative Diagnosis: Same as Pre-op Surgeon: Herb Barker Patient Transition Specialist: Bossman Islas Anesthesiologist/SEROLOGIST: Carl Rubio Anesthesia: General Specimens Removed: non viable soft tissue Estimated Blood Loss (mls): 20
[2018-06-16] MEDS ORDERED: ONDANSETRON 4 MG/2 ML VIAL IVPUSH PRN ×2 (12:01→12:12)
[2018-06-16] MEDS ORDERED: ACETAMINOPHEN 1000 MG/100 ML VIAL (NON FORMULARY) IVPB ONE (12:02)
[2018-06-16] MEDS ORDERED: LACTATED RINGERS SOLUTION 1,000 ML IV SCH ×4 (12:12→13:53)
[2018-06-16] MEDS ORDERED: MORPHINE SULFATE 2 MG/ML VIAL IVPUSH PRN (12:12)
[2018-06-16] MEDS ORDERED: ALBUTEROL SO4 0.083% IH SOL 2.5 MG/3 ML VIAL.NEB. NEB PRN (12:12)
--- NOTE | 2018-06-16 12:55 | PN ---
Teaching Attending Note Name of Resident: Pati Corona ATTENDING PHYSICIAN STATEMENT I saw and evaluated the patient. I reviewed the resident's note and discussed the case with the resident. I agree with the resident's findings and plan as documented with exceptions below. SUBJECTIVE: Patient seen and examined in PACU, some back pain, attempting to urinating, left axilla swelling better. No new concerns otherwise. OBJECTIVE: Vital Signs Period Temp Pulse Resp BP Sys/Sanders Pulse Ox Last 24 Hr 97.9 F-98.4 F 75-90 18-20 133-153/64-81 98 Intake & Output 06/13/18 06/14/18 06/15/18 06/16/18 23:59 23:59 23:59 23:59 Intake Total 1000 3280 3650 1800 Balance 1000 3280 3650 1800 Weight 168 lb General: lying in bed in no acute distress Abdomen:Soft, NT Extremities: left axiallary swellings unchanged Back: refused exam as on bed hopper and unable to move Home Medications Medication Instructions Recorded Albuterol Sulfate Inhaler - 1 - 2 inh PO QID PRN 06/12/18 [Ventolin Hfa Inhaler -] Insulin Glargine,Hum.rec.anlog 30 unit SQ DAILY 06/12/18 [Lantus] Insulin Regular [NOVOLIN R VIAL 8 unit SQ AC 06/12/18 *IVPUSH / ER / ICU Only*] Active Medications Acetaminophen (Tylenol -) 650 mg PO Q4HPO [facility] Albuterol Sulfate (Ventolin 0.083% Nebulizer Soln -) 1 amp NEB Q4H PRN PRN Reason: SHORT OF BREATH/WHEEZING Enoxaparin Sodium (Lovenox -) 40 mg SQ DAILY [facility] Fentanyl (Sublimaze Injection -) 50 mcg IVPUSH [id number] PRN PRN Reason: PAIN-PACU ORDER X 4 DOSES ONLY Lactated Ringer's (Lactated Ringers Solution) 1,000 mls @ 100 mls/hr IV ASDIR [facility] Lactated Ringer's (Lactated Ringers Solution) 1,000 mls @ 75 mls/hr IV ASDIR [facility] Vancomycin HCl 1,250 mg/ (Dextrose) 250 mls @ 166.667 mls/hr IVPB Q24H [facility]; Protocol Insulin Aspart (Novolog Vial Sliding Scale -) 1 vial SQ ACHS [facility]; Protocol Insulin Detemir (Levemir Vial) 30 units SQ ACBK [facility] Morphine Sulfate (Morphine Sulfate) 2 mg IVPUSH Q6H PRN PRN Reason: for DRESSING CHANGES ONLY Ondansetron HCl (Zofran Injection) 4 mg IVPUSH Q6H PRN PRN Reason: NAUSEA AND/OR VOMITING Oxycodone HCl (Roxicodone -) 5 mg PO Q8H PRN PRN Reason: PAIN LEVEL 7 - 10 Laboratory Results - last 24 hr 06/12/18 06/15/18 06/15/18 05:30 12:02 17:20 WBC RBC Hgb Hct MCV MCH MCHC RDW Plt Count MPV Absolute Neuts (auto) Neutrophils % Lymphocytes % Monocytes % Eosinophils % Basophils % Nucleated RBC % Sodium 135 L Potassium 4.3 Chloride 96 L Carbon Dioxide 30 Anion Gap 8 BUN 14 Creatinine 0.6 Creat Clearance w eGFR > 60 POC Glucometer 250 Random Glucose 253 H Calcium 8.4 L Phosphorus 3.3 Magnesium 1.9 TB Test (QFT) Nil 0.03 TB Test (QFT) Mitogen 4.39 TB Test (QFT) Antigen 0.03 TB Positive Criteria 06/15/18 06/16/18 06/16/18 21:10 06:28 08:12 WBC 11.3 H RBC 4.35 Hgb 13.2 Hct 38.6 MCV 88.7 MCH 30.4 MCHC 34.2 RDW 13.8 Plt Count 482 H MPV 7.7 Absolute Neuts (auto) 8.4 H Neutrophils % 74.0 Lymphocytes % 13.8 Monocytes % 9.3 Eosinophils % 2.6 Basophils % 0.3 Nucleated RBC % 0 Sodium Potassium Chloride Carbon Dioxide Anion Gap BUN Creatinine Creat Clearance w eGFR POC Glucometer 210 332 Random Glucose Calcium Phosphorus Magnesium TB Test (QFT) Nil TB Test (QFT) Mitogen TB Test (QFT) Antigen TB Positive Criteria 06/16/18 08:12 WBC RBC Hgb Hct MCV MCH MCHC RDW Plt Count MPV Absolute Neuts (auto) Neutrophils % Lymphocytes % Monocytes % Eosinophils % Basophils % Nucleated RBC % Sodium 133 L Potassium 5.2 H Chloride 96 L Carbon Dioxide 25 Anion Gap 12 BUN 14 Creatinine 0.9 Creat Clearance w eGFR > 60 POC Glucometer Random Glucose 365 H* Calcium 8.6 Phosphorus Magnesium TB Test (QFT) Nil TB Test (QFT) Mitogen TB Test (QFT) Antigen TB Positive Criteria Microbiology 06/11/18 22:35 Blood - Peripheral Venous Blood Culture - Preliminary NO GROWTH OBTAINED AFTER 96 HOURS, INCUBATION TO CONTINUE FOR 1 DAYS. 06/11/18 22:35 Blood - Peripheral Venous Blood Culture - Preliminary NO GROWTH OBTAINED AFTER 96 HOURS, INCUBATION TO CONTINUE FOR 1 DAYS. 06/12/18 17:00 Back Gram Stain - Final 06/12/18 17:00 Back Wound Culture - Final S Aureus 06/11/18 22:49 Back Gram Stain - Final 06/11/18 22:49 Back Wound Culture - Final S Aureus 06/12/18 03:24 Urine - Urine Clean Catch Urine Culture - Final NO GROWTH OBTAINED ASSESSMENT AND PLAN: 43 yom with PMHx of IDDM, HTN, HLD, Asthma, 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) all for abscesses on the L side of his body (chest, LUE, back, perianal) admitted with back MRSA abscess s/p I&D and left axillary swellings -MRSA back abscess s/p I&D 06/12, repeat debridement of non viable tissue 06/16 -Left axillary swellings, suspected abscesses -DEVANG suspect from infection/hypovolumia from ongoing hyperglycemia -IDDM, poorly controlled (A1c > 10) -HTN -HLD -Asthma -Proteiuria -Hyperkalemia, suspect from acei+/- hyperglycemia Plan: Surgery input noted, s/p repeat debridement of non viable tissue today. Wound cx per surgery Wound cx with MRSA. ID input noted. vancomycin, monitor levels. Monitor left axillary lesions, hot compresses, follow up with surgery if needs I &D. Unchanged today. Discuss with CM for disposition arrangements given current back wound that requires packing. K rising, hold lisinopril for now. Add levemir 10 units HS, continue 30 units AM and ISS. Rechallenge with ACEi outpatient once blood sugars improved if potassium levels stable. IVF. Pain control oxycodone. D/c morphine in 24 hours. DVTPPX lovenox Dispo planning pending ID/surgery input, wound care needs and dispo arrangements Plan discussed with patient in detail, all questions answered.
[2018-06-16] MEDS ORDERED: ACETAMINOPHEN INJECTION 100 ML IVPB ONE (13:16)
--- NOTE | 2018-06-16 13:34 | PN ---
Progress Note, Physician History of Present Illness: stable no new issues - Current Medication List Current Medications: Active Medications Acetaminophen (Tylenol -) 650 mg PO Q4HPO [facility] Albuterol Sulfate (Ventolin 0.083% Nebulizer Soln -) 1 amp NEB Q4H PRN PRN Reason: SHORT OF BREATH/WHEEZING Enoxaparin Sodium (Lovenox -) 40 mg SQ DAILY [facility] Fentanyl (Sublimaze Injection -) 50 mcg IVPUSH [id number] PRN PRN Reason: PAIN-PACU ORDER X 4 DOSES ONLY Lactated Ringer's (Lactated Ringers Solution) 1,000 mls @ 100 mls/hr IV ASDIR [facility] Lactated Ringer's (Lactated Ringers Solution) 1,000 mls @ 75 mls/hr IV ASDIR [facility] Vancomycin HCl 1,250 mg/ (Dextrose) 250 mls @ 166.667 mls/hr IVPB Q24H [facility]; Protocol Insulin Aspart (Novolog Vial Sliding Scale -) 1 vial SQ ACHS [facility]; Protocol Insulin Detemir (Levemir Vial) 30 units SQ ACBK [facility] Insulin Detemir (Levemir Vial) 10 units SQ HS [facility] Morphine Sulfate (Morphine Sulfate) 2 mg IVPUSH Q6H PRN PRN Reason: for DRESSING CHANGES ONLY Ondansetron HCl (Zofran Injection) 4 mg IVPUSH Q6H PRN PRN Reason: NAUSEA AND/OR VOMITING Oxycodone HCl (Roxicodone -) 5 mg PO Q8H PRN PRN Reason: PAIN LEVEL 7 - 10 - Objective Vital Signs: Vital Signs Temperature 98.0 F 06/16/18 09:51 Pulse Rate 90 06/16/18 09:51 Respiratory Rate 20 06/16/18 09:51 Blood Pressure 147/70 06/16/18 09:51 O2 Sat by Pulse Oximetry (%) 98 06/15/18 21:00 Constitutional: Yes: No Distress, Calm Cardiovascular: Yes: Regular Rate and Rhythm Respiratory: Yes: Regular, CTA Bilaterally Gastrointestinal: Yes: Normal Bowel Sounds, Soft Musculoskeletal: Yes: WNL Extremities: Yes: WNL Wound/Incision: Yes: Dressing Dry and Intact Neurological: Yes: Alert, Oriented Psychiatric: Yes: Alert, Oriented Labs: CBC, BMP 06/16/18 08:12 06/16/18 08:12 INR, PTT INR 1.27 (0.83-1.09) H 06/12/18 05:30 Assessment/Plan Problem List - Problems (1) Abscess Code(s): L02.91 - CUTANEOUS ABSCESS, UNSPECIFIED (2) Sepsis Code(s): A41.9 - SEPSIS, UNSPECIFIED ORGANISM Qualifiers: Sepsis type: sepsis due to unspecified organism Qualified Code(s): A41.9 - Sepsis, unspecified organism (3) Diabetes Code(s): E11.9 - TYPE 2 DIABETES MELLITUS WITHOUT COMPLICATIONS (4) Asthma Code(s): J45.909 - UNSPECIFIED ASTHMA, UNCOMPLICATED Qualifiers: Asthma severity: mild Asthma persistence: intermittent Asthma complication type: uncomplicated Qualified Code(s): J45.20 - Mild intermittent asthma, uncomplicated plan continue current mgmt wound care abx rest as per the team
[2018-06-16] MEDS: ENOXAPARIN NA (PORCINE) 40 MG/0.4 ML DISP.SYRIN SQ SCH (13:46)
[2018-06-16] MEDS: LISINOPRIL 5 MG TABLET (FP) PO SCH (13:46)
[2018-06-16] MEDS ORDERED: INSULIN (NOVOLOG) ASPART 100 UNITS/ML 10ML VIAL ONE (13:50)
[2018-06-16] MEDS ORDERED: PT OWN MED DRAWER 7, Y5N ONE (13:50)
[2018-06-16] MEDS ORDERED: VANCOMYCIN 1,250 MG in DEXTROSE 5%-WATER - 250 ML IVPB SCH (14:30)
[2018-06-16] MEDS: VANCOMYCIN 1,250 MG in DEXTROSE 5%-WATER - 250 ML IVPB SCH ×2 (15:41→15:51)
[2018-06-16] MEDS ORDERED: INSULIN (NOVOLOG) ASPART 100 UNITS/ML 10ML VIAL SQ ONE (16:50)
[2018-06-17 01:18] LABS: ANION GAP 10 MMOL/L (8-16); BLOOD UREA NITROGEN 24 mg/dL (7-18); CALCIUM 7.9 mg/dL (8.5-10.1); CHLORIDE 97 mmol/L (98-107); CO2 22 mmol/L (21-32); CREATININE 1.2 mg/dL (0.55-1.3); POTASSIUM 4.7 mmol/L (3.5-5.1); SODIUM 129 mmol/L (136-145)
[2018-06-17 01:20] LABS: GLUCOSE,RANDOM 491 mg/dL (74-106)
[2018-06-17] MEDS ORDERED: INSULIN (NOVOLOG) ASPART 100 UNITS/ML 10ML VIAL SQ ONE (01:51)
[2018-06-17] MEDS: VANCOMYCIN 1,250 MG in DEXTROSE 5%-WATER - 250 ML IVPB SCH ×2 (02:30→13:58)
[2018-06-17] MEDS: ACETAMINOPHEN 325 MG TABLET (FP) PO SCH ×6 (02:31→22:19)
[2018-06-17] MEDS: oxyCODONE HCL 5 MG TABLET PO PRN ×2 (06:26→16:58)
[2018-06-17] MEDS: INSULIN SLIDING SCALE (NOVOLOG) 1 VIAL SQ SCH ×4 (06:27→22:22)
[2018-06-17] MEDS: INSULIN (LEVEMIR) 100 UNITS/ML UNITS SQ SCH ×2 (06:29→22:20)
--- NOTE | 2018-06-17 09:02 | PN ---
Progress Note (short form) - Note Progress Note: Day 1 s/p I+D for back wound/abscess. Doing well; no anesthetic issues/ complications
[2018-06-17 09:06] LABS: HEMATOCRIT 31.9 % (35.4-49); HEMOGLOBIN 10.9 GM/dL (11.7-16.9); MCH 29.9 pg (25.7-33.7); MCHC 34.3 g/dl (32.0-35.9); MEAN CELL VOLUME 87.2 fl (80-96); PLATELET COUNT 538 K/MM3 (134-434); RBC 3.66 M/mm3 (4.00-5.60); RDW 13.7 % (11.9-15.9); WHITE BLOOD COUNT 12.1 K/mm3 (4.0-10.0)
[2018-06-17] MEDS ORDERED: PT OWN MED DRAWER 7, Y5N ONE ×3 (09:21→17:03)
[2018-06-17] MEDS ORDERED: LISINOPRIL 5 MG TABLET (FP) PO SCH (10:00)
[2018-06-17 10:01] LABS: ANION GAP 10 MMOL/L (8-16); BLOOD UREA NITROGEN 22 mg/dL (7-18); CALCIUM 8.2 mg/dL (8.5-10.1); CHLORIDE 102 mmol/L (98-107); CO2 25 mmol/L (21-32); CREATININE 0.9 mg/dL (0.55-1.3); GLUCOSE,RANDOM 175 mg/dL (74-106); POTASSIUM 3.9 mmol/L (3.5-5.1); SODIUM 137 mmol/L (136-145)
[2018-06-17] MEDS: ENOXAPARIN NA (PORCINE) 40 MG/0.4 ML DISP.SYRIN SQ SCH (10:03)
--- NOTE | 2018-06-17 10:58 | PN ---
Physical Exam: SUBJECTIVE: Patient seen and examined, back and axillary symptoms better, no fevers or chills. OBJECTIVE: Vital Signs Period Temp Pulse Resp BP Sys/Sanders Pulse Ox Last 24 Hr 97.8 F-98.2 F 75-96 16-22 128-158/57-81 98-100 GENERAL: The patient is awake, alert, and fully oriented, in no acute distress. HEAD: Normal with no signs of trauma. EYES: PERRL, extraocular movements intact, sclera anicteric, conjunctiva clear. No ptosis. ENT: Ears normal, nares patent, oropharynx clear without exudates, moist mucous membranes. NECK: Trachea midline, full range of motion, supple. LUNGS: Breath sounds equal, clear to auscultation bilaterally, no wheezes, no crackles, no accessory muscle use. HEART: Regular rate and rhythm, S1, S2 ABDOMEN: Soft, nontender, nondistended, normoactive bowel sounds, no guarding, no rebound Back: Surgical dressing, further exam deferred currently EXTREMITIES: left axillary nodules less tender, less erythema PSYCH: Normal mood, normal affect. SKIN: Warm, dry, normal turgor, no rashes or lesions noted Laboratory Results - last 24 hr 06/16/18 06/16/18 06/16/18 13:23 13:40 23:50 WBC RBC Hgb Hct MCV MCH MCHC RDW Plt Count MPV Sodium 129 L Potassium 4.7 Chloride 97 L Carbon Dioxide 22 Anion Gap 10 BUN 24 H Creatinine 1.2 Creat Clearance w eGFR > 60 POC Glucometer 395 Random Glucose 491 H* Calcium 7.9 L Vancomycin Pre-Dose 2.2 L 06/17/18 06/17/18 06/17/18 06:25 07:15 07:15 WBC 12.1 H RBC 3.66 L Hgb 10.9 L Hct 31.9 L D MCV 87.2 MCH 29.9 MCHC 34.3 RDW 13.7 Plt Count 538 H MPV 7.0 L Sodium 137 Potassium 3.9 Chloride 102 Carbon Dioxide 25 Anion Gap 10 BUN 22 H Creatinine 0.9 Creat Clearance w eGFR > 60 POC Glucometer 276 Random Glucose 175 H Calcium 8.2 L Vancomycin Pre-Dose Active Medications Generic Name Dose Route Start Last Admin Trade Name Freq PRN Reason Stop Dose Admin Acetaminophen 650 mg 06/16/18 14:00 06/17/18 10:01 Tylenol - PO 650 mg Q4HPO [facility] Administration Albuterol Sulfate 1 amp 06/16/18 12:12 Ventolin 0.083% Nebulizer Soln - NEB Q4H PRN SHORT OF BREATH/WHEEZING Enoxaparin Sodium 40 mg 06/17/18 10:00 06/17/18 10:03 Lovenox - SQ 40 mg DAILY [facility] Administration Lactated Ringer's 1,000 mls @ 100 mls/hr 06/16/18 13:53 06/16/18 15:41 Lactated Ringers Solution IV Not Given ASDIR [facility] Vancomycin HCl 1,250 mg/ 250 mls @ 166.667 mls/hr 06/17/18 02:00 06/17/18 02: 30 Dextrose IVPB 166.667 mls/hr BID@0200,1400 [facility] Administration Protocol Insulin Aspart 1 vial 06/16/18 16:30 06/17/18 06:27 Novolog Vial Sliding Scale - SQ 6 units ACHS [facility] Administration Protocol Insulin Aspart 5 units 06/17/18 11:00 Novolog Vial SQ TIDAC [facility] Protocol Insulin Detemir 30 units 06/17/18 07:00 06/17/18 06:29 Levemir Vial SQ 30 units ACBK [facility] Administration Insulin Detemir 10 units 06/16/18 22:00 06/16/18 23:00 Levemir Vial SQ 10 units HS [facility] Administration Morphine Sulfate 2 mg 06/16/18 12:12 Morphine Sulfate IVPUSH Q6H PRN for DRESSING CHANGES ONLY Ondansetron HCl 4 mg 06/16/18 12:12 Zofran Injection IVPUSH Q6H PRN NAUSEA AND/OR VOMITING Oxycodone HCl 5 mg 06/16/18 12:12 06/17/18 06:26 Roxicodone - PO 5 mg Q8H PRN Administration PAIN LEVEL 7 - 10 Microbiology 06/11/18 22:35 Blood - Peripheral Venous Blood Culture - Final NO GROWTH AFTER 5 DAYS INCUBATION 06/11/18 22:35 Blood - Peripheral Venous Blood Culture - Final NO GROWTH AFTER 5 DAYS INCUBATION 06/12/18 17:00 Back Gram Stain - Final 06/12/18 17:00 Back Wound Culture - Final Mr S Aureus 06/11/18 22:49 Back Gram Stain - Final 06/11/18 22:49 Back Wound Culture - Final Mr Del Toro Aureus 06/12/18 03:24 Urine - Urine Clean Catch Urine Culture - Final NO GROWTH OBTAINED ASSESSMENT/PLAN: 43 yom with PMHx of IDDM, HTN, HLD, Asthma, 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) all for abscesses on the L side of his body (chest, LUE, back, perianal) admitted with back MRSA abscess s/p I&D and left axillary swellings -MRSA back abscess s/p I&D 06/12, repeat debridement of non viable tissue 06/16 -Left axillary swellings, suspected abscesses -DEVANG suspect from infection/hypovolumia from ongoing hyperglycemia -Hyponatremia, suspect pseudohyponatremia from hyperglycemia+volume depletion, resolved -Hyperkalemia, suspect from ACEi/hyperglycemia -Anemia, from hemodiluiton+/- surgical loss -IDDM, poorly controlled (A1c > 10) -HTN -HLD -Asthma -Proteiuria -Hyperkalemia, suspect from acei+/- hyperglycemia Plan: Doing well Wound care/further intervention per surgery Wound cx with MRSA. Vanco levels noted, increased to BID, repeat levels before 4th dose. ID input noted. Monitor left axillary lesions, hot compresses, follow up with surgery if needs I &D. Unchanged today. Hyperglycemia, resume premeal novolog at 5 units TID. Continue levemir 30 units AM-10 units HS. Rechallenge with ACEi outpatient once blood sugars improved if potassium levels stable. Discuss with CM for disposition arrangements given current back wound that requires packing. Dc IVF. Pain control oxycodone. D/c morphine DVTPPX lovenox Dispo planning pending ID/surgery input, wound care needs and dispo arrangements Plan discussed with patient and nursing in detail, all questions answered. Visit type - Emergency Visit Emergency Visit: Yes ED Registration Date: 06/11/18 Care time: The patient presented to the Emergency Department on the above date and was hospitalized for further evaluation of their emergent condition. - New Patient This patient is new to me today: No - Critical Care Critical Care patient: No - Discharge Referral Referred to [facility] Med [facility] No
[2018-06-17] MEDS: INSULIN (NOVOLOG) ASPART 100 UNITS/ML 10ML VIAL SQ SCH ×2 (12:11→17:16)
--- NOTE | 2018-06-17 14:01 | PN ---
Progress Note, Physician History of Present Illness: Pt seen and examined. He c/o pain, Lt axilla. Back wound dressed. - Current Medication List Current Medications: Active Medications Acetaminophen (Tylenol -) 650 mg PO Q4HPO [facility] Last Admin: 06/17/18 10:01 Dose: 650 mg Albuterol Sulfate (Ventolin 0.083% Nebulizer Soln -) 1 amp NEB Q4H PRN PRN Reason: SHORT OF BREATH/WHEEZING Enoxaparin Sodium (Lovenox -) 40 mg SQ DAILY [facility] Last Admin: 06/17/18 10:03 Dose: 40 mg Vancomycin HCl 1,250 mg/ (Dextrose) 250 mls @ 166.667 mls/hr IVPB BID@0200, 1400 [facility]; Protocol Last Admin: 06/17/18 02:30 Dose: 166.667 mls/hr Insulin Aspart (Novolog Vial Sliding Scale -) 1 vial SQ ACHS [facility]; Protocol Last Admin: 06/17/18 12:10 Dose: 2 units Insulin Aspart (Novolog Vial) 5 units SQ TIDAC [facility] Last Admin: 06/17/18 12:11 Dose: 5 unit Insulin Detemir (Levemir Vial) 30 units SQ ACBK [facility] Last Admin: 06/17/18 06:29 Dose: 30 units Insulin Detemir (Levemir Vial) 10 units SQ HS [facility] Last Admin: 06/16/18 23:00 Dose: 10 units Ondansetron HCl (Zofran Injection) 4 mg IVPUSH Q6H PRN PRN Reason: NAUSEA AND/OR VOMITING Oxycodone HCl (Roxicodone -) 5 mg PO Q8H PRN PRN Reason: PAIN LEVEL 7 - 10 Last Admin: 06/17/18 06:26 Dose: 5 mg - Objective Vital Signs: Vital Signs Temperature 97.8 F 06/17/18 10:00 Pulse Rate 83 06/17/18 10:00 Respiratory Rate 20 06/17/18 10:00 Blood Pressure 142/75 06/17/18 10:00 O2 Sat by Pulse Oximetry (%) 98 06/17/18 09:00 Constitutional: Yes: No Distress, Calm Cardiovascular: Yes: Regular Rate and Rhythm Respiratory: Yes: Regular Gastrointestinal: Yes: Normal Bowel Sounds, Soft Integumentary: Yes: Other (Lt axilla with erythema/induration/tenderness) Wound/Incision: Yes: Other (Back wound dressed, +tenderness) Labs: CBC, BMP 06/17/18 07:15 06/17/18 07:15 INR, PTT INR 1.27 (0.83-1.09) H 06/12/18 05:30 Microbiology 06/11/18 22:35 Blood - Peripheral Venous Blood Culture - Final NO GROWTH AFTER 5 DAYS INCUBATION 06/11/18 22:35 Blood - Peripheral Venous Blood Culture - Final NO GROWTH AFTER 5 DAYS INCUBATION 06/12/18 17:00 Back Gram Stain - Final 06/12/18 17:00 Back Wound Culture - Final S Aureus 06/11/18 22:49 Back Gram Stain - Final 06/11/18 22:49 Back Wound Culture - Final S Aureus 06/12/18 03:24 Urine - Urine Clean Catch Urine Culture - Final NO GROWTH OBTAINED Problem List - Problems (1) Abscess Code(s): L02.91 - CUTANEOUS ABSCESS, UNSPECIFIED (2) Asthma Code(s): J45.909 - UNSPECIFIED ASTHMA, UNCOMPLICATED Qualifiers: Asthma severity: mild Asthma persistence: intermittent Asthma complication type: uncomplicated Qualified Code(s): J45.20 - Mild intermittent asthma, uncomplicated (3) Diabetes Code(s): E11.9 - TYPE 2 DIABETES MELLITUS WITHOUT COMPLICATIONS Assessment/Plan Back abscess s/p drainage Lt axilla abscess Leukocytosis IDDM HTN HLD -- wbc mildly elevated today, afebrile -- continue Vancomycin, level noted and dose adjusted, repeat trough level prior to 4th dose -- suggest drainage of Lt axilla collection -- surgical follow up -- monitor wbc trend, continue wound care
[2018-06-17] MEDS ORDERED: INSULIN (NOVOLOG) ASPART 100 UNITS/ML 10ML VIAL ONE (22:01)
[2018-06-18] MEDS ORDERED: PT OWN MED DRAWER 7, Y5N ONE ×3 (00:42→14:01)
[2018-06-18] MEDS: oxyCODONE HCL 5 MG TABLET PO PRN ×3 (01:09→22:26)
[2018-06-18] MEDS: VANCOMYCIN 1,250 MG in DEXTROSE 5%-WATER - 250 ML IVPB SCH ×2 (01:10→14:11)
[2018-06-18] MEDS: ACETAMINOPHEN 325 MG TABLET (FP) PO SCH ×7 (01:10→22:51)
[2018-06-18] MEDS: INSULIN SLIDING SCALE (NOVOLOG) 1 VIAL SQ SCH ×4 (06:58→22:38)
[2018-06-18] MEDS: INSULIN (NOVOLOG) ASPART 100 UNITS/ML 10ML VIAL SQ SCH ×3 (06:58→16:30)
[2018-06-18] MEDS: INSULIN (LEVEMIR) 100 UNITS/ML UNITS SQ SCH ×2 (06:58→22:37)
[2018-06-18 07:16] LABS: BASO % 0.4 % (0-2.0); EOS % 4.2 % (0-4.5); HEMOGLOBIN 11.3 GM/dL (11.7-16.9); LYMPH % 12.8 % (8-40); MCH 31.3 pg (25.7-33.7); MCHC 35.4 g/dl (32.0-35.9); MEAN CELL VOLUME 88.2 fl (80-96); NEUT % 74.6 % (42.8-82.8); PLATELET COUNT 565 K/MM3 (134-434); RBC 3.62 M/mm3 (4.00-5.60); RDW 13.8 % (11.9-15.9); WHITE BLOOD COUNT 9.1 K/mm3 (4.0-10.0)
[2018-06-18 07:30] LABS: ANION GAP 7 MMOL/L (8-16); BLOOD UREA NITROGEN 14 mg/dL (7-18); CALCIUM 8.3 mg/dL (8.5-10.1); CHLORIDE 101 mmol/L (98-107); CO2 28 mmol/L (21-32); CREATININE 0.7 mg/dL (0.55-1.3); GLUCOSE,RANDOM 231 mg/dL (74-106); PHOSPHOROUS 3.6 mg/dL (2.5-4.9); POTASSIUM 4.4 mmol/L (3.5-5.1); SODIUM 135 mmol/L (136-145)
[2018-06-18] MEDS: ENOXAPARIN NA (PORCINE) 40 MG/0.4 ML DISP.SYRIN SQ SCH (09:47)
--- NOTE | 2018-06-18 11:52 | PN ---
Physical Exam: SUBJECTIVE: Patient seen and examined, back symptoms improved. Feels left underarm swellings worse and more painful, no new fevers, chills. OBJECTIVE: Vital Signs Period Temp Pulse Resp BP Sys/Sanders Pulse Ox Last 24 Hr 97.4 F-98.6 F 77-83 18-20 115-148/56-74 98-100 GENERAL: The patient is awake, alert, and fully oriented, in no acute distress. HEAD: Normal with no signs of trauma. EYES: PERRL, extraocular movements intact, sclera anicteric, conjunctiva clear. No ptosis. ENT: Ears normal, nares patent, oropharynx clear without exudates, moist mucous membranes. NECK: Trachea midline, full range of motion, supple. LUNGS: Breath sounds equal, clear to auscultation bilaterally, no wheezes, no crackles, no accessory muscle use. HEART: Regular rate and rhythm, S1, S2 ABDOMEN: Soft, nontender, nondistended, normoactive bowel sounds, no guarding, no rebound Back: Surgical dressing, further exam deferred currently EXTREMITIES: left axillary nodules enlarged and more tender today PSYCH: Normal mood, normal affect. SKIN: Warm, dry, normal turgor, no rashes or lesions noted Laboratory Results - last 24 hr 06/17/18 06/17/18 06/17/18 13:13 16:55 21:20 WBC RBC Hgb Hct MCV MCH MCHC RDW Plt Count MPV Absolute Neuts (auto) Neutrophils % Lymphocytes % Monocytes % Eosinophils % Basophils % Nucleated RBC % Sodium Potassium Chloride Carbon Dioxide Anion Gap BUN Creatinine Creat Clearance w eGFR POC Glucometer 177 121 144 Random Glucose Calcium Phosphorus Magnesium 06/18/18 06/18/18 06/18/18 06:00 06:00 06:35 WBC 9.1 RBC 3.62 L Hgb 11.3 L Hct 32.0 L MCV 88.2 MCH 31.3 MCHC 35.4 RDW 13.8 Plt Count 565 H MPV 7.0 L Absolute Neuts (auto) 6.8 Neutrophils % 74.6 Lymphocytes % 12.8 Monocytes % 8.0 Eosinophils % 4.2 Basophils % 0.4 Nucleated RBC % 0 Sodium 135 L Potassium 4.4 Chloride 101 Carbon Dioxide 28 Anion Gap 7 L BUN 14 Creatinine 0.7 Creat Clearance w eGFR > 60 POC Glucometer 216 Random Glucose 231 H Calcium 8.3 L Phosphorus 3.6 Magnesium 2.0 06/18/18 09:10 WBC RBC Hgb Hct MCV MCH MCHC RDW Plt Count MPV Absolute Neuts (auto) Neutrophils % Lymphocytes % Monocytes % Eosinophils % Basophils % Nucleated RBC % Sodium Potassium Chloride Carbon Dioxide Anion Gap BUN Creatinine Creat Clearance w eGFR POC Glucometer 211 Random Glucose Calcium Phosphorus Magnesium Active Medications Generic Name Dose Route Start Last Admin Trade Name Freq PRN Reason Stop Dose Admin Acetaminophen 650 mg 06/16/18 14:00 06/18/18 09:47 Tylenol - PO 650 mg Q4HPO [facility] Administration Albuterol Sulfate 1 amp 06/16/18 12:12 Ventolin 0.083% Nebulizer Soln - NEB Q4H PRN SHORT OF BREATH/WHEEZING Enoxaparin Sodium 40 mg 06/17/18 10:00 06/18/18 09:47 Lovenox - SQ 40 mg DAILY [facility] Administration Vancomycin HCl 1,250 mg/ 250 mls @ 166.667 mls/hr 06/17/18 02:00 06/18/18 01: 10 Dextrose IVPB 166.667 mls/hr BID@0200,1400 [facility] Administration Protocol Insulin Aspart 1 vial 06/16/18 16:30 06/18/18 11:34 Novolog Vial Sliding Scale - SQ 4 units ACHS [facility] Administration Protocol Insulin Aspart 5 units 06/17/18 11:00 06/18/18 11:35 Novolog Vial SQ 5 unit TIDAC [facility] Administration Insulin Detemir 30 units 06/17/18 07:00 06/18/18 06:58 Levemir Vial SQ 30 units ACBK [facility] Administration Insulin Detemir 10 units 06/16/18 22:00 06/17/18 22:20 Levemir Vial SQ 10 units HS [facility] Administration Ondansetron HCl 4 mg 06/16/18 12:12 Zofran Injection IVPUSH Q6H PRN NAUSEA AND/OR VOMITING Oxycodone HCl 5 mg 06/16/18 12:12 06/18/18 11:34 Roxicodone - PO 5 mg Q8H PRN Administration PAIN LEVEL 7 - 10 Microbiology 06/11/18 22:35 Blood - Peripheral Venous Blood Culture - Final NO GROWTH AFTER 5 DAYS INCUBATION 06/11/18 22:35 Blood - Peripheral Venous Blood Culture - Final NO GROWTH AFTER 5 DAYS INCUBATION 06/12/18 17:00 Back Gram Stain - Final 06/12/18 17:00 Back Wound Culture - Final S Aureus 06/11/18 22:49 Back Gram Stain - Final 06/11/18 22:49 Back Wound Culture - Final Mr Del Toro Aureus 06/12/18 03:24 Urine - Urine Clean Catch Urine Culture - Final NO GROWTH OBTAINED ASSESSMENT/PLAN: 43 yom with PMHx of IDDM, HTN, HLD, Asthma, 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) all for abscesses on the L side of his body (chest, LUE, back, perianal) admitted with back MRSA abscess s/p I&D and left axillary swellings -MRSA back abscess s/p I&D 06/12, repeat debridement of non viable tissue 06/16 -Left axillary swellings, suspected abscesses -DEVANG suspect from infection/hypovolumia from ongoing hyperglycemia -Hyponatremia, suspect pseudohyponatremia from hyperglycemia+volume depletion, resolved -Hyperkalemia, suspect from ACEi/hyperglycemia -Anemia, from hemodiluiton+/- surgical loss -IDDM, poorly controlled (A1c > 10) -HTN -HLD -Asthma -Proteiuria -Hyperkalemia, suspect from acei+/- hyperglycemia Plan: Doing well Wound care/further intervention per surgery Wound cx with MRSA. Vanco levels noted, increased to BID, repeat levels before 4th dose. ID input noted. Left axillary lesions more tender and enlarged today, discuss with surgery for I &D. Blood sugars improved. Levemir 10 units AM, 30 units hs, premeal novolog 5 units and ISS. Rechallenge with ACEi outpatient once blood sugars improved if potassium levels stable. Discuss with CM for disposition arrangements given current back wound that requires packing. Pain control oxycodone/tylenol DVTPPX lovenox Dispo planning pending ID/surgery input, wound care needs and dispo arrangements Patient expressing frustration about being in the hospital and states may want to leave as would not want to be in enclosed space longer. Explained in detail about current infection, need for back wound packing/ dressing, possible need for I&D of left axillary lesions and need for IV abx, also risks of leaving including worsening infection, sepsis and . Patient relays full understanding of the risks, willing to think about the same. Plan discussed with nursing in detail, all questions answered. Visit type - Emergency Visit Emergency Visit: Yes ED Registration Date: 06/11/18 Care time: The patient presented to the Emergency Department on the above date and was hospitalized for further evaluation of their emergent condition. - New Patient This patient is new to me today: No - Critical Care Critical Care patient: No - Discharge Referral Referred to [facility] Med P.C.: No
--- NOTE | 2018-06-18 15:00 | PN ---
Progress Note, Physician History of Present Illness: Pt afebrile, pain controlled. Has no new complaints. - Current Medication List Current Medications: Active Medications Acetaminophen (Tylenol -) 650 mg PO Q4HPO [facility] Last Admin: 06/18/18 09:47 Dose: 650 mg Albuterol Sulfate (Ventolin 0.083% Nebulizer Soln -) 1 amp NEB Q4H PRN PRN Reason: SHORT OF BREATH/WHEEZING Enoxaparin Sodium (Lovenox -) 40 mg SQ DAILY [facility] Last Admin: 06/18/18 09:47 Dose: 40 mg Vancomycin HCl 1,250 mg/ (Dextrose) 250 mls @ 166.667 mls/hr IVPB BID@0200, 1400 [facility]; Protocol Last Admin: 06/18/18 14:11 Dose: 166.667 mls/hr Insulin Aspart (Novolog Vial Sliding Scale -) 1 vial SQ ACHS [facility]; Protocol Last Admin: 06/18/18 11:34 Dose: 4 units Insulin Aspart (Novolog Vial) 5 units SQ TIDAC [facility] Last Admin: 06/18/18 11:35 Dose: 5 unit Insulin Detemir (Levemir Vial) 30 units SQ ACBK [facility] Last Admin: 06/18/18 06:58 Dose: 30 units Insulin Detemir (Levemir Vial) 10 units SQ HS [facility] Last Admin: 06/17/18 22:20 Dose: 10 units Ondansetron HCl (Zofran Injection) 4 mg IVPUSH Q6H PRN PRN Reason: NAUSEA AND/OR VOMITING Oxycodone HCl (Roxicodone -) 5 mg PO Q8H PRN PRN Reason: PAIN LEVEL 7 - 10 Last Admin: 06/18/18 11:34 Dose: 5 mg - Objective Vital Signs: Vital Signs Temperature 98.1 F 06/18/18 10:00 Pulse Rate 79 06/18/18 10:00 Respiratory Rate 18 06/18/18 10:00 Blood Pressure 115/56 L 06/18/18 10:00 O2 Sat by Pulse Oximetry (%) 98 06/18/18 09:00 Constitutional: Yes: No Distress, Calm Cardiovascular: Yes: Regular Rate and Rhythm Respiratory: Yes: Regular Gastrointestinal: Yes: Normal Bowel Sounds, Soft Wound/Incision: Yes: Other (Back dressing intact, +tenderness (improved) Lt axilla induration/tenderness) Labs: CBC, BMP 06/18/18 06:00 06/18/18 06:00 INR, PTT INR 1.27 (0.83-1.09) H 06/12/18 05:30 Microbiology 06/11/18 22:35 Blood - Peripheral Venous Blood Culture - Final NO GROWTH AFTER 5 DAYS INCUBATION 06/11/18 22:35 Blood - Peripheral Venous Blood Culture - Final NO GROWTH AFTER 5 DAYS INCUBATION 06/12/18 17:00 Back Gram Stain - Final 06/12/18 17:00 Back Wound Culture - Final S Aureus 06/11/18 22:49 Back Gram Stain - Final 06/11/18 22:49 Back Wound Culture - Final S Aureus 06/12/18 03:24 Urine - Urine Clean Catch Urine Culture - Final NO GROWTH OBTAINED Problem List - Problems (1) Abscess Code(s): L02.91 - CUTANEOUS ABSCESS, UNSPECIFIED (2) Asthma Code(s): J45.909 - UNSPECIFIED ASTHMA, UNCOMPLICATED Qualifiers: Asthma severity: mild Asthma persistence: intermittent Asthma complication type: uncomplicated Qualified Code(s): J45.20 - Mild intermittent asthma, uncomplicated (3) Diabetes Code(s): E11.9 - TYPE 2 DIABETES MELLITUS WITHOUT COMPLICATIONS Assessment/Plan Back abscess s/p drainage +MRSA Lt axilla abscess Leukocytosis - resolved IDDM HTN HLD -- continue Vancomycin, dose adjusted, repeat trough level prior to 4th dose -- evaluation for drainage of Lt axilla collection -- surgical follow up --continue wound care
[2018-06-19] MEDS ORDERED: PT OWN MED DRAWER 7, Y5N ONE ×2 (00:48→14:13)
[2018-06-19] MEDS: VANCOMYCIN 1,250 MG in DEXTROSE 5%-WATER - 250 ML IVPB SCH ×2 (01:51→14:18)
[2018-06-19] MEDS: ACETAMINOPHEN 325 MG TABLET (FP) PO SCH ×3 (04:15→09:48)
[2018-06-19 06:09] LABS: SERUM IRON SATURATION 9 % (15-55); TOTAL IRON BINDING CAPACITY 182 ug/dL (250-450); UIBC 165 ug/dL (111-343)
[2018-06-19] MEDS: INSULIN SLIDING SCALE (NOVOLOG) 1 VIAL SQ SCH ×4 (06:34→22:46)
[2018-06-19] MEDS: INSULIN (LEVEMIR) 100 UNITS/ML UNITS SQ SCH ×2 (06:52→22:45)
[2018-06-19] MEDS: INSULIN (NOVOLOG) ASPART 100 UNITS/ML 10ML VIAL SQ SCH ×4 (06:53→17:21)
[2018-06-19 07:05] LABS: BASO % 0.6 % (0-2.0); EOS % 4.4 % (0-4.5); HEMATOCRIT 31.2 % (35.4-49); HEMOGLOBIN 10.8 GM/dL (11.7-16.9); LYMPH % 18.6 % (8-40); MCH 30.1 pg (25.7-33.7); MCHC 34.5 g/dl (32.0-35.9); MEAN CELL VOLUME 87.3 fl (80-96); MEAN PLT VOLUME 6.8 fl (7.5-11.1); MONO % 12.3 % (3.8-10.2); NEUT % 64.1 % (42.8-82.8); PLATELET COUNT 612 K/MM3 (134-434); RBC 3.57 M/mm3 (4.00-5.60); RDW 13.8 % (11.9-15.9); WHITE BLOOD COUNT 6.8 K/mm3 (4.0-10.0)
--- NOTE | 2018-06-19 09:13 | PN ---
Physical Exam: SUBJECTIVE: Patient seen and examined by me at bedside No acute events overnight Patient reports left axilla pain. Otherwise, patient denies any fever, chills, nausea, vomiting, abdominal pain, chest pain, palpitations, shortness of breath, headaches, dizziness. OBJECTIVE: Vital Signs Period Temp Pulse Resp BP Sys/Sanders Pulse Ox Last 24 Hr 97.8 F-98.1 F 72-79 18-20 115-136/56-71 98 GENERAL: The patient is awake, alert, and fully oriented, in no acute distress. EYES: PERRL, sclera anicteric, conjunctiva clear. ENT: Oropharynx clear without exudates, moist mucous membranes. LUNGS: CTA b/ with no wheezes, no crackles, no accessory muscle use. HEART: RRR, Normal S1 and S2 without murmur, rub or gallop. ABDOMEN: Soft, nontender, nondistended, normoactive bowel sounds. EXTREMITIES: No edema. SKIN: [id number] large wound of the back with surgical dressing Laboratory Results 06/19/18 06:00 06/18/18 06:00 Active Medications Generic Name Dose Route Start Last Admin Trade Name Freq PRN Reason Stop Dose Admin Acetaminophen 650 mg 06/16/18 14:00 06/19/18 06:30 Tylenol - PO Not Given Q4HPO [facility] Albuterol Sulfate 1 amp 06/16/18 12:12 Ventolin 0.083% Nebulizer Soln - NEB Q4H PRN SHORT OF BREATH/WHEEZING Docusate Sodium 300 mg 06/19/18 22:00 Colace - PO HS [facility] Enoxaparin Sodium 40 mg 06/17/18 10:00 06/18/18 09:47 Lovenox - SQ 40 mg DAILY [facility] Administration Ferrous Sulfate 325 mg 06/19/18 08:00 Feosol - PO BIDWM [facility] Vancomycin HCl 1,250 mg/ 250 mls @ 166.667 mls/hr 06/17/18 02:00 06/19/18 01: 51 Dextrose IVPB 166.667 mls/hr BID@0200,1400 [facility] Administration Protocol Insulin Aspart 1 vial 06/16/18 16:30 06/19/18 06:34 Novolog Vial Sliding Scale - SQ Not Given ACHS [facility] Protocol Insulin Aspart 5 units 06/17/18 11:00 06/19/18 06:53 Novolog Vial SQ 5 unit TIDAC [facility] Administration Insulin Detemir 30 units 06/17/18 07:00 06/19/18 06:52 Levemir Vial SQ 30 units ACBK [facility] Administration Insulin Detemir 10 units 06/16/18 22:00 06/18/18 22:37 Levemir Vial SQ 10 units HS [facility] Administration Ondansetron HCl 4 mg 06/16/18 12:12 Zofran Injection IVPUSH Q6H PRN NAUSEA AND/OR VOMITING Oxycodone HCl 5 mg 06/16/18 12:12 06/18/18 22:26 Roxicodone - PO 5 mg Q8H PRN Administration PAIN LEVEL 7 - 10 ASSESSMENT/PLAN: Patient is a 43 year old male who presented for back pain annd was found to have a large back abscess. Patient admitted to med/surg for further evaluation and management. Left Back Abscess with Multiple Abscesses (L paraspinal area, axilla, chest) -Continue Vancomycin 1250g IVPB BID (Day #8) -S/P two I&D's of the back (06/12/18 and 06/16/18) -Patient wound cultures positive for MRSA -isolation precautions -Pain control with Roxicodone 5mg Q6H PRN, and Tylenol 650mg po Q4H -Continue wound packing with wet to dry Kurlex, as per surgical team -Surgery team to assess left axilla abscesses for possible I&D -Will likely need Wound vac and IV abx HTN-controlled -Continue Lisinopril 5mg daily -will continue to monitor HLD -On no medication. -LDL <70 IDDMII -A1c 10.9% -Continue 30u levemir ACBK, Levemir 10 units HS, Novolog 5units TIDAC -ISS -BGM DEVANG -Resolved -Continue to monitor History of Asthma -currently not in exacerbation -Continue with Ventolin PRN Iron Def. Anemia -Continue Ferrous Sulfate 325mg BIDWM -Continue to monitor CBC F/E/N -On no fluids, tolerating PO -Electrolytes wnl -Diabetic/Sodium controlled diet Prophylaxis -Lovenox 40mg SQ daily for DVT -No GI required Disposition -Full code -Continue IV Abx. Awaiting for placement Pati Corona [id number] Visit type - Emergency Visit Emergency Visit: Yes ED Registration Date: 06/11/18 Care time: The patient presented to the Emergency Department on the above date and was hospitalized for further evaluation of their emergent condition. - New Patient This patient is new to me today: No - Critical Care Critical Care patient: No
[2018-06-19] MEDS: ENOXAPARIN NA (PORCINE) 40 MG/0.4 ML DISP.SYRIN SQ SCH (09:24)
[2018-06-19] MEDS: oxyCODONE HCL 5 MG TABLET PO PRN ×2 (09:24→18:59)
[2018-06-19] MEDS: FERROUS SO4 325 MG TABLET (FP) PO SCH ×2 (09:48→17:23)
--- NOTE | 2018-06-19 09:54 | PN ---
Progress Note (short form) - Note Progress Note: POD 7, s/p I&D back abscess POD 3, s/p re-debridement non viable skin/subcutaneous tissue/muscle and fascia of the back/previous I and D site Pt seen and examined this AM. Reports continued pain with dressing changes. Is concerned about abscess under L arm. Reports he has to leave by Tuesday due to issues with housing for his dog. Currently has no stable housing. Denies cp/sob , n/v/d. Vital Signs Temp 97.6 F 06/19/18 09:23 Pulse 88 06/19/18 09:23 Resp 21 H 06/19/18 09:23 BP 130/68 06/19/18 09:23 Pulse Ox 98 06/18/18 21:00 Intake & Output 06/18/18 06/18/18 06/19/18 11:59 23:59 11:59 Intake Total 465 1030 Balance 465 1030 Intake: IVPB 250 250 Oral 215 780 Other: Voiding Method Toilet Toilet # Unmeasured Voids Void 2 2 Bowel Movement Yes # Bowel Movements 1 CBC, BMP 06/19/18 06:00 06/18/18 06:00 Gen: awake, alert, nad Resp: unlabored on RA Back: L back with Large wound approximately [id number] x4cm, wound bed with moderate fibrinous exudate, + serous drainage, no surrounding erythema. L axilla: 2 adjacent areas of induration under L axilla, + ttp. A/P: 43 y/o homeless M with PMH HTN, HLD, DM, asthma, admitted 06/11 with L back abscess, now s/p POD 7, s/p I&D back abscess POD 3, s/p re-debridement non viable skin/subcutaneous tissue/muscle and fascia of the back/previous I and D site -Santyl ordered, RN aware to change dressing when it arrives (apply damp to dry 4x4 over Santyl and cover with Kerlix) -Wound vac ordered, plan for application tomorrow, 2/5 -Attending will be by to evaluate L axilla abscesses d/w attending Dr Barker
[2018-06-19] MEDS: COLLAGENASE CLOSTRIDIUM HIST. 30 GRAMS TUBE TP SCH (11:10)
--- NOTE | 2018-06-19 11:48 | PN ---
Teaching Attending Note Name of Resident: Pati Corona ATTENDING PHYSICIAN STATEMENT I saw and evaluated the patient. I reviewed the resident's note and discussed the case with the resident. I agree with the resident's findings and plan as documented with exceptions below. SUBJECTIVE: Patient seen and examined. still with back pain, left axillary swelling bigger and painful, no new fevers or chills. OBJECTIVE: Vital Signs Period Temp Pulse Resp BP Sys/Sanders Pulse Ox Last 24 Hr 97.6 F-98.0 F 72-88 20-21 115-136/60-71 98 Intake & Output 06/16/18 06/17/18 06/18/18 06/19/18 23:59 23:59 23:59 23:59 Intake Total 3200 2190 1495 480 Output Total 300 Balance 2900 2190 1495 480 General: lying in bed in no acute distress Back: dressing with no surrounding erythema/swelling, further exam deferred Extremities: left axiallary swellings still swollen, more tender and enlarged Abdomen:soft, obese, NT Home Medications Medication Instructions Recorded Albuterol Sulfate Inhaler - 1 - 2 inh PO QID PRN 06/12/18 [Ventolin Hfa Inhaler -] Insulin Glargine,Hum.rec.anlog 30 unit SQ DAILY 06/12/18 [Lantus] Insulin Regular [NOVOLIN R VIAL 8 unit SQ AC 06/12/18 *IVPUSH / ER / ICU Only*] Active Medications Acetaminophen (Tylenol -) 650 mg PO Q4HPO [facility] Last Admin: 06/19/18 09:48 Dose: 650 mg Albuterol Sulfate (Ventolin 0.083% Nebulizer Soln -) 1 amp NEB Q4H PRN PRN Reason: SHORT OF BREATH/WHEEZING Collagenase (Santyl -) 1 applic TP DAILY [facility]; Protocol Docusate Sodium (Colace -) 300 mg PO HS [facility] Enoxaparin Sodium (Lovenox -) 40 mg SQ DAILY [facility] Last Admin: 06/19/18 09:24 Dose: 40 mg Ferrous Sulfate (Feosol -) 325 mg PO BIDWM [facility] Last Admin: 06/19/18 09:48 Dose: 325 mg Vancomycin HCl 1,250 mg/ (Dextrose) 250 mls @ 166.667 mls/hr IVPB BID@0200, 1400 [facility]; Protocol Last Admin: 06/19/18 01:51 Dose: 166.667 mls/hr Insulin Aspart (Novolog Vial Sliding Scale -) 1 vial SQ ACHS [facility]; Protocol Last Admin: 06/19/18 06:34 Dose: Not Given Insulin Aspart (Novolog Vial) 5 units SQ TIDAC [facility] Last Admin: 06/19/18 06:53 Dose: 5 unit Insulin Detemir (Levemir Vial) 30 units SQ ACBK [facility] Last Admin: 06/19/18 06:52 Dose: 30 units Insulin Detemir (Levemir Vial) 10 units SQ HS [facility] Last Admin: 06/18/18 22:37 Dose: 10 units Ondansetron HCl (Zofran Injection) 4 mg IVPUSH Q6H PRN PRN Reason: NAUSEA AND/OR VOMITING Oxycodone HCl (Roxicodone -) 5 mg PO Q8H PRN PRN Reason: PAIN LEVEL 7 - 10 Last Admin: 06/19/18 09:24 Dose: 5 mg Laboratory Results - last 24 hr 06/16/18 06/16/18 06/18/18 16:36 22:53 06:00 WBC RBC Hgb Hct MCV MCH MCHC RDW Plt Count MPV Absolute Neuts (auto) Neutrophils % Lymphocytes % Monocytes % Eosinophils % Basophils % Nucleated RBC % POC Glucometer 525 547 Iron 17 L TIBC 182 L Iron Saturation 9 L 06/18/18 06/18/18 06/18/18 14:21 16:49 22:36 WBC RBC Hgb Hct MCV MCH MCHC RDW Plt Count MPV Absolute Neuts (auto) Neutrophils % Lymphocytes % Monocytes % Eosinophils % Basophils % Nucleated RBC % POC Glucometer 73 128 316 Iron TIBC Iron Saturation 06/19/18 06/19/18 06:00 06:32 WBC 6.8 RBC 3.57 L Hgb 10.8 L Hct 31.2 L MCV 87.3 MCH 30.1 MCHC 34.5 RDW 13.8 Plt Count 612 H MPV 6.8 L Absolute Neuts (auto) 4.3 Neutrophils % 64.1 Lymphocytes % 18.6 D Monocytes % 12.3 H Eosinophils % 4.4 Basophils % 0.6 Nucleated RBC % 0 POC Glucometer 120 Iron TIBC Iron Saturation Microbiology 06/11/18 22:35 Blood - Peripheral Venous Blood Culture - Final NO GROWTH AFTER 5 DAYS INCUBATION 06/11/18 22:35 Blood - Peripheral Venous Blood Culture - Final NO GROWTH AFTER 5 DAYS INCUBATION 06/12/18 17:00 Back Gram Stain - Final 06/12/18 17:00 Back Wound Culture - Final S Aureus 06/11/18 22:49 Back Gram Stain - Final 06/11/18 22:49 Back Wound Culture - Final S Aureus 06/12/18 03:24 Urine - Urine Clean Catch Urine Culture - Final NO GROWTH OBTAINED ASSESSMENT AND PLAN: 43 yom with PMHx of IDDM, HTN, HLD, Asthma, 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) all for abscesses on the L side of his body (chest, LUE, back, perianal) admitted with back MRSA abscess s/p I&D and left axillary swellings -MRSA back abscess s/p I&D 06/12, repeat debridement of non viable tissue 06/16 -Left axillary swellings, suspected abscesses -DEVANG suspect from infection/hypovolumia from ongoing hyperglycemia -Hyponatremia, suspect pseudohyponatremia from hyperglycemia+volume depletion, resolved -Hyperkalemia, suspect from ACEi/hyperglycemia -Anemia, from hemodiluiton+/- surgical loss -IDDM, poorly controlled (A1c > 10) -HTN -HLD -Asthma -Proteiuria -Hyperkalemia, suspect from acei+/- hyperglycemia Plan: Doing well Surgery input noted, plan for wound vac to back wound. Follow up for additional I&D of left axillary lesions. Wound cx with MRSA. Vanco levels noted, increased to BID, repeat levels before 4th dose,for day. ID input noted. Blood sugars improved. Levemir 10 units AM, 30 units hs, premeal novolog 5 units and ISS. Rechallenge with ACEi outpatient once blood sugars improved if potassium levels stable. Pain control oxycodone/tylenol DVTPPX lovenox Dispo Discussed with CM for disposition arrangements , will likely need SNF, wound vac +/- IV abx pending clinical course and ID input. Plan discussed with nursing in detail, all questions answered.
--- NOTE | 2018-06-19 13:20 | PN ---
Progress Note, Physician History of Present Illness: patient stable notes noted - Current Medication List Current Medications: Active Medications Acetaminophen (Tylenol -) 650 mg PO Q4HPO PRN PRN Reason: PAIN LEVEL 1-5 Albuterol Sulfate (Ventolin 0.083% Nebulizer Soln -) 1 amp NEB Q4H PRN PRN Reason: SHORT OF BREATH/WHEEZING Collagenase (Santyl -) 1 applic TP DAILY [facility]; Protocol Docusate Sodium (Colace -) 300 mg PO [facility] Enoxaparin Sodium (Lovenox -) 40 mg SQ DAILY [facility] Last Admin: 06/19/18 09:24 Dose: 40 mg Ferrous Sulfate (Feosol -) 325 mg PO BIDWM [facility] Last Admin: 06/19/18 09:48 Dose: 325 mg Vancomycin HCl 1,250 mg/ (Dextrose) 250 mls @ 166.667 mls/hr IVPB BID@0200, 1400 [facility]; Protocol Last Admin: 06/19/18 01:51 Dose: 166.667 mls/hr Insulin Aspart (Novolog Vial Sliding Scale -) 1 vial SQ ACHS [facility]; Protocol Last Admin: 06/19/18 06:34 Dose: Not Given Insulin Aspart (Novolog Vial) 5 units SQ TIDAC [facility] Last Admin: 06/19/18 11:53 Dose: Not Given Insulin Detemir (Levemir Vial) 30 units SQ ACBK [facility] Last Admin: 06/19/18 06:52 Dose: 30 units Insulin Detemir (Levemir Vial) 10 units SQ HS [facility] Last Admin: 06/18/18 22:37 Dose: 10 units Ondansetron HCl (Zofran Injection) 4 mg IVPUSH Q6H PRN PRN Reason: NAUSEA AND/OR VOMITING - Objective Vital Signs: Vital Signs Temperature 97.6 F 06/19/18 09:23 Pulse Rate 88 06/19/18 09:23 Respiratory Rate 21 H 06/19/18 09:23 Blood Pressure 130/68 06/19/18 09:23 O2 Sat by Pulse Oximetry (%) 98 06/18/18 21:00 Constitutional: Yes: No Distress, Calm Cardiovascular: Yes: Regular Rate and Rhythm Respiratory: Yes: Regular, CTA Bilaterally Gastrointestinal: Yes: Normal Bowel Sounds, Soft Musculoskeletal: Yes: WNL Extremities: Yes: Other (axillary abscess) Wound/Incision: Yes: Dressing Dry and Intact Neurological: Yes: Alert, Oriented Labs: CBC, BMP 06/19/18 06:00 06/18/18 06:00 INR, PTT INR 1.27 (0.83-1.09) H 06/12/18 05:30 Assessment/Plan Problem List - Problems (1) Abscess Code(s): L02.91 - CUTANEOUS ABSCESS, UNSPECIFIED (2) Sepsis Code(s): A41.9 - SEPSIS, UNSPECIFIED ORGANISM Qualifiers: Sepsis type: sepsis due to unspecified organism Qualified Code(s): A41.9 - Sepsis, unspecified organism (3) Diabetes Code(s): E11.9 - TYPE 2 DIABETES MELLITUS WITHOUT COMPLICATIONS (4) Asthma Code(s): J45.909 - UNSPECIFIED ASTHMA, UNCOMPLICATED Qualifiers: Asthma severity: mild Asthma persistence: intermittent Asthma complication type: uncomplicated Qualified Code(s): J45.20 - Mild intermittent asthma, uncomplicated plan continue current mgmt wound care will switch to oral tomorrow rest as per the team axillary abscess needs drained
--- NOTE | 2018-06-19 16:09 | PATH ---
Surgical Pathology Report Patient Name: GILMA STALEY Med. Rec. #: [id number] /Age/Gender: 1975 (Age: 43) / M Account: [id number] Location: [address] [place] [address]/[facility] Taken: 06/16/2018 Received: 06/16/2018 Reported: 06/19/2018 Physicians: MD Nikita Burt M.D. Specimen(s) Received DEBRIDEMENT TISSUE FROM BACK ABCESS Clinical History Back abscess Final Diagnosis BACK ABSCESS DEBRIDED TISSUE, EXCISION: SEGMENTS OF SKIN AND FIBROUS TISSUE SHOWING GANGRENOUS NECROSIS, SEVERE ACUTE AND CHRONIC INFLAMMATION WITH ABSCESS FORMATION. Electronically Signed Boo Smith M.D. Gross Description Received in formalin labeled "back abscess debrided tissue," is a 9.0 x 6.5 x 3.0 cm aggregate of ramirez, necrotic portions of skin and soft tissue. Accordion Maker sections are submitted in one cassette. /06/16/201806/16/2018
[2018-06-19] MEDS: ACETAMINOPHEN 325 MG TABLET (FP) PO PRN (17:23)
[2018-06-19] MEDS ORDERED: INSULIN (LEVEMIR) 100 UNITS/ML UNITS SQ ONE (22:30)
[2018-06-19] MEDS ORDERED: INSULIN (NOVOLOG) ASPART 100 UNITS/ML 10ML VIAL ONE (22:30)
[2018-06-19] MEDS: DOCUSATE SODIUM 100 MG CAPSULE (FP) PO SCH ×2 (22:45→22:48)
[2018-06-20] MEDS: VANCOMYCIN 1,250 MG in DEXTROSE 5%-WATER - 250 ML IVPB SCH (02:44)
[2018-06-20] MEDS: oxyCODONE HCL 5 MG TABLET PO PRN (05:13)
[2018-06-20] MEDS: ACETAMINOPHEN 325 MG TABLET (FP) PO PRN ×2 (05:13→09:32)
[2018-06-20] MEDS: INSULIN (LEVEMIR) 100 UNITS/ML UNITS SQ SCH (06:55)
[2018-06-20] MEDS: INSULIN SLIDING SCALE (NOVOLOG) 1 VIAL SQ SCH (06:56)
[2018-06-20] MEDS: INSULIN (NOVOLOG) ASPART 100 UNITS/ML 10ML VIAL SQ SCH (06:57)
[2018-06-20] MEDS ORDERED: INSULIN (NOVOLOG) ASPART 100 UNITS/ML 10ML VIAL ONE (07:02)
[2018-06-20] MEDS ORDERED: INSULIN (LEVEMIR) 100 UNITS/ML UNITS SQ ONE (07:02)
[2018-06-20 07:21] VITALS: TEMP 97.5
[2018-06-20] MEDS: FERROUS SO4 325 MG TABLET (FP) PO SCH (08:15)
[2018-06-20] MEDS: COLLAGENASE CLOSTRIDIUM HIST. 30 GRAMS TUBE TP SCH (09:36)
--- NOTE | 2018-06-20 09:37 | DS ---
Physical Exam: SUBJECTIVE: Patient seen and examined by me at bedside No acute events overnight Patient to sign out AMA today Otherwise, patient denies any fever, chills, nausea, vomiting, abdominal pain, chest pain, palpitations, shortness of breath, headaches, dizziness. OBJECTIVE: Vital Signs Period Temp Pulse Resp BP Sys/Sanders Pulse Ox Last 24 Hr 97.5 F-98.2 F 78-89 19-20 115-141/68-83 98-98 PHYSICAL EXAM GENERAL: The patient is awake, alert, and fully oriented, in no acute distress. EYES: Sclera anicteric, conjunctiva clear. ENT: Moist mucous membranes. LUNGS: CTA b/ with no wheezes, no crackles, no accessory muscle use. HEART: RRR, Normal S1 and S2 without murmur, rub or gallop. ABDOMEN: Soft, nontender, nondistended, normoactive bowel sounds. EXTREMITIES: No edema. SKIN: [id number] large wound of the back with surgical dressing Laboratory Results 06/19/18 06:00 06/18/18 06:00 Microbiology 06/11/18 22:35 Blood - Peripheral Venous Blood Culture - Final NO GROWTH AFTER 5 DAYS INCUBATION 06/11/18 22:35 Blood - Peripheral Venous Blood Culture - Final NO GROWTH AFTER 5 DAYS INCUBATION 06/12/18 17:00 Back Gram Stain - Final 06/12/18 17:00 Back Wound Culture - Final Mr S Aureus 06/11/18 22:49 Back Gram Stain - Final 06/11/18 22:49 Back Wound Culture - Final Mr S Aureus 06/12/18 03:24 Urine - Urine Clean Catch Urine Culture - Final NO GROWTH OBTAINED PRE-HOSPITAL COURSE: Patient is a 43 year old male with a PMHx of HTN, HLD, IDDMII, Asthma, Iron Def. Anemia who presented to the ED complaining of a left back abscess that progressively worsened within 1.5 weeks associated with discharge. Patient was admitted for I&D and antibiotic therapy. HOSPITAL COURSE: Throughout hospitalization, patient had two I&D's with Dr. Barker (06/12/18 and 06/16/18) and on IV abx since 06/11/2018. Wound and blood cultures were done, which revealed MRSA in the wound cultures and patient placed on isolation precautions. Patient was seen by surgical team throughout hospitalization and managing the wound with wound packing. Patient was also found to have an abscess of the left axilla that was painful and erythemetous. Surgery evaluated patient with possible plans to I&D the abscess of the left axilla. It was then determined that patient will likely need Woung Vac placed with nursing home IV abx used and eventual placement to nursing facility. However, patient left AMA due to personal reasons and stated he will return the same day or following day. PATIENT ADAMENTLY REFUSES HOSPITALIZATION AND WANTS TO LEAVE AGAINST MEDICAL ADVICE. I EXPLAINED TO PATIENT THAT AGAINST MEDICAL ADVICE IS DANGEROUS AND CAN LEAD TO WORSENING OF CONDITION, PERMANENT DISABILITY, AND EVEN . I USED LAY TERMINOLOGY. I ANSWERED ALL QUESTIONS. ITS CLEAR TO ME THAT HE UNDERSTANDS THE RISKS AND BENEFITS OF CONTINUOUS HOSPITAL STAY AND LEAVING AGAINST MEDICAL ADVISE. HE HAS THE CAPACITY TO MAKE HIS OWN DECISIONS. HE AGREES TO FOLLOW UP WITH AND RETURN TO THE EMERGENCY DEPARTMENT IF SYMPTOMS WORSEN. Date of Admission:06/11/18 Date of Discharge: 06/20/18 Minutes to complete discharge: 45 Discharge Summary Reason For Visit: ABSCESS,SEPSIS Current Active Problems Abscess (Acute) Asthma (Acute) Diabetes (Acute) Sepsis (Acute) Condition: Fair - Instructions Diet, Activity, Other Instructions: PATIENT ADAMENTLY REFUSES HOSPITALIZATION AND WANTS TO LEAVE AGAINST MEDICAL ADVICE. I EXPLAINED TO PATIENT THAT AGAINST MEDICAL ADVICE IS DANGEROUS AND CAN LEAD TO WORSENING OF CONDITION, PERMANENT DISABILITY, AND EVEN . I USED LAY TERMINOLOGY. I ANSWERED ALL QUESTIONS. ITS CLEAR TO ME THAT HE UNDERSTANDS THE RISKS AND BENEFITS OF CONTINUOUS HOSPITAL STAY AND LEAVING AGAINST MEDICAL ADVISE. HE HAS THE CAPACITY TO MAKE HIS OWN DECISIONS. HE AGREES TO FOLLOW UP WITH AND RETURN TO THE EMERGENCY DEPARTMENT IF SYMPTOMS WORSEN. Disposition: AGAINST MEDICAL ADVICE - Home Medications Comprehensive Discharge Medication List: Ambulatory Orders Albuterol Sulfate Inhaler - [Ventolin Hfa Inhaler -] 1 - 2 inh PO QID PRN Insulin Glargine,Hum.rec.anlog [Lantus] 30 unit SQ DAILY 06/12/18 Insulin Regular [NOVOLIN R VIAL *IVPUSH / ER / ICU Only*] 8 unit SQ AC 06/12/18 This patient is new to me today: No Emergency Visit: Yes ED Registration Date: 06/11/18 Care time: The patient presented to the Emergency Department on the above date and was hospitalized for further evaluation of their emergent condition. Critical Care patient: No - Discharge Referral Referred to [facility] No
[2018-06-20] MEDS: ENOXAPARIN NA (PORCINE) 40 MG/0.4 ML DISP.SYRIN SQ SCH (09:54)
[2018-06-20 10:35] LABS: BASO % 0.8 % (0-2.0); EOS % 2.8 % (0-4.5); HEMATOCRIT 36.8 % (35.4-49); HEMOGLOBIN 12.9 GM/dL (11.7-16.9); LYMPH % 19.6 % (8-40); MCH 30.8 pg (25.7-33.7); MEAN PLT VOLUME 6.9 fl (7.5-11.1); MONO % 10.1 % (3.8-10.2); NEUT % 66.7 % (42.8-82.8); PLATELET COUNT 760 K/MM3 (134-434); RBC 4.18 M/mm3 (4.00-5.60); WHITE BLOOD COUNT 7.6 K/mm3 (4.0-10.0)
[2018-06-20 10:45] LABS: ANION GAP 8 MMOL/L (8-16); BLOOD UREA NITROGEN 17 mg/dL (7-18); CALCIUM 9.2 mg/dL (8.5-10.1); CHLORIDE 97 mmol/L (98-107); CO2 28 mmol/L (21-32); CREATININE 1.1 mg/dL (0.55-1.3); GLUCOSE,RANDOM 260 mg/dL (74-106); MAGNESIUM 2.1 mg/dL (1.8-2.4); POTASSIUM 4.9 mmol/L (3.5-5.1); SODIUM 132 mmol/L (136-145)
--- NOTE | 2018-06-20 11:02 | PN ---
Teaching Attending Note Name of Resident: Pati Corona ATTENDING PHYSICIAN STATEMENT I saw and evaluated the patient. I reviewed the resident's note and discussed the case with the resident. I agree with the resident's findings and plan as documented with exceptions below. SUBJECTIVE: Patient seen and examined, overall better, left axillary bumps better,no new fevers/chills or concerns. OBJECTIVE: Vital Signs Period Temp Pulse Resp BP Sys/Sanders Pulse Ox Last 24 Hr 97.5 F-98.2 F 78-89 19-20 115-141/68-83 98 Intake & Output 06/17/18 06/18/18 06/19/18 06/20/18 23:59 23:59 23:59 23:59 Intake Total 2190 1495 1190 550 Balance 2190 1495 1190 550 General: ambulating in room, no acute distress Back: back dressing in place Extremities: left axilla softer and small swellings today, minimally tender Home Medications Medication Instructions Recorded Albuterol Sulfate Inhaler - 1 - 2 inh PO QID PRN 06/12/18 [Ventolin Hfa Inhaler -] Insulin Glargine,Hum.rec.anlog 30 unit SQ DAILY 06/12/18 [Lantus] Insulin Regular [NOVOLIN R VIAL 8 unit SQ AC 06/12/18 *IVPUSH / ER / ICU Only*] Laboratory Results - last 24 hr 06/19/18 06/19/18 06/19/18 11:52 13:58 17:17 WBC RBC Hgb Hct MCV MCH MCHC RDW Plt Count MPV Absolute Neuts (auto) Neutrophils % Lymphocytes % Monocytes % Eosinophils % Basophils % Nucleated RBC % Sodium Potassium Chloride Carbon Dioxide Anion Gap BUN Creatinine Creat Clearance w eGFR POC Glucometer 105 187 Random Glucose Calcium Phosphorus Magnesium Vancomycin Pre-Dose 12.7 L 06/19/18 06/19/18 06/20/18 19:09 22:44 06:04 WBC RBC Hgb Hct MCV MCH MCHC RDW Plt Count MPV Absolute Neuts (auto) Neutrophils % Lymphocytes % Monocytes % Eosinophils % Basophils % Nucleated RBC % Sodium Potassium Chloride Carbon Dioxide Anion Gap BUN Creatinine Creat Clearance w eGFR POC Glucometer 140 134 282 Random Glucose Calcium Phosphorus Magnesium Vancomycin Pre-Dose 06/20/18 06/20/18 09:50 09:50 WBC 7.6 RBC 4.18 Hgb 12.9 Hct 36.8 D MCV 88.0 MCH 30.8 MCHC 35.0 RDW 14.0 Plt Count 760 H D MPV 6.9 L Absolute Neuts (auto) 5.0 Neutrophils % 66.7 Lymphocytes % 19.6 Monocytes % 10.1 Eosinophils % 2.8 Basophils % 0.8 Nucleated RBC % 0 Sodium 132 L Potassium 4.9 Chloride 97 L Carbon Dioxide 28 Anion Gap 8 BUN 17 Creatinine 1.1 Creat Clearance w eGFR > 60 POC Glucometer Random Glucose 260 H Calcium 9.2 Phosphorus 4.0 Magnesium 2.1 Vancomycin Pre-Dose ASSESSMENT AND PLAN: 43 yom with PMHx of IDDM, HTN, HLD, Asthma, 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) all for abscesses on the L side of his body (chest, LUE, back, perianal) admitted with back MRSA abscess s/p I&D and left axillary swellings -MRSA back abscess s/p I&D 06/12, repeat debridement of non viable tissue 06/16 -Left axillary swellings, suspected abscesses -DEVANG suspect from infection/hypovolumia from ongoing hyperglycemia -Hyponatremia, suspect pseudohyponatremia from hyperglycemia+volume depletion, resolved -Hyperkalemia, suspect from ACEi/hyperglycemia -Anemia, from hemodiluiton+/- surgical loss -IDDM, poorly controlled (A1c > 10) -HTN -HLD -Asthma -Proteiuria -Hyperkalemia, suspect from acei+/- hyperglycemia Plan: Doing well Surgery input noted, plan for wound vac to back wound. Left axillary lesions improved, no plan for I&D per surgery Wound cx with MRSA. Vanco levels noted, continue BID. ID input noted. Blood sugars improved. Levemir 10 units AM, 30 units hs, premeal novolog 5 units and ISS. Rechallenge with ACEi outpatient once blood sugars improved if potassium levels stable. Pain control oxycodone/tylenol DVTPPX lovenox Dispo Discussed with CM for disposition arrangements , will likely need SNF, wound vac +/- IV abx pending clinical course and ID input. patient reports might need to leave to take care of his dog and firmly asserts that will be coming back to ED later today right after the same. Explained in detail about the need for further management of back wound including wound vac, need for IV antibiotics and close monitoring and risks of untreated infection, including sepsis and . Patient relays full understanding of the risks and firmly states multiple times that will be back later today to be re-admitted and continued management of his infection. He is fully aware of the risks and need for IV antibiotics and need for ongoing treatment. Plan discussed with nursing in detail, all questions answered.
[2018-06-20 11:30] VITALS: BP 130/88; PULSE 88
== END 2018-06-20 10:40 | disposition left against medical advice (07) | DRG 710 ==
LOC: JER 21:04 → JERBED 23:57 → J5S 06-12 21:15
PROVIDERS: ADMIT Internal Medicine; ATTEND Hospitalist
PROC: 0KBG0ZZ Excision of Left Trunk Muscle, Open Approach (ICD-10-PCS; 2018-06-12)
PROC: 0JB70ZZ Excision of Back Subcutaneous Tissue and Fascia, Open Approach (ICD-10-PCS; principal; 2018-06-12 14:30)
DX: A41.89 Other specified sepsis (principal); J45.909 Unspecified asthma, uncomplicated; I10 Essential (primary) hypertension; E78.5 Hyperlipidemia, unspecified; A49.02 Methicillin resistant Staphylococcus aureus infection, unspecified site; E87.5 Hyperkalemia; R80.9 Proteinuria, unspecified; Z59.0 Homelessness; L02.91 Cutaneous abscess, unspecified; E11.65 Type 2 diabetes mellitus with hyperglycemia; E87.1 Hypo-osmolality and hyponatremia; N17.9 Acute kidney failure, unspecified; D50.9 Iron deficiency anemia, unspecified; D72.829 Elevated white blood cell count, unspecified
CPT/HCPCS: 36415; 71045-TC-FY; 72128-TC; 76705-TC; 80048; 80053; 80061; 81003; 81015; 82009; 82803; 82962; 82977; 83036; 83540; 83550; 83605; 83721; 83735; 84100; 84484; 85025; 85027; 85610; 85730; 86480; 86850; 86900; 86901; 87040; 87070; 87086; 87186; 87205; 88304-TC; 93005; 93010; 94760; 97116-GP; 97161-GP; 99284-25; G0480; J0131; J7030

== ENCOUNTER 2018-06-21 09:48 | Inpatient (IN) | payer OTHER ==
--- NOTE | 2018-06-21 10:46 | PDOC ---
History of Present Illness - General History Source: Patient Exam Limitations: No Limitations - History of Present Illness Initial Comments: 06/21/18 10:55 The patient is a 43 year old male, with a significant past medical history of hypertension, hyperlipidemia, DM, and MRSA infection, who presents to the emergency department to continue treatment for his left back wound infection after leaving the hospital admission yesterday AMA to take care of personal responsibilities. He states he was advised to return to continue his Abx treatment. He denies any new complaints or symptoms. The patient denies chest pain, shortness of breath, headache and dizziness. The patient denies fever, chills, nausea, vomit, diarrhea and constipation. The patient denies dysuria, frequency, urgency and hematuria. Allergies: NKDA <Geri Vargas - Last Filed: 06/21/18 11:39> <Seng Seals - Last Filed: 06/21/18 13:12> - General Chief Complaint: Wound Stated Complaint: WOUND Time Seen by Provider: 06/21/18 10:41 Past History <Geri Vargas - Last Filed: 06/21/18 11:39> - Past Medical History Anemia: No Asthma: Yes Cancer: No COPD: No Diabetes: Yes (IDDM) HTN: Yes Hypercholesterolemia: Yes - Suicide/Smoking/Psychosocial Hx Smoking History: Current every day smoker Have you smoked in the past 12 months: Yes Number of Cigarettes Smoked Daily: 20 Information on smoking cessation initiated: No 'Breaking Loose' booklet given: 06/12/18 Hx Alcohol Use: No Drug/Substance Use Hx: No <Seng Seals - Last Filed: 06/21/18 13:12> - Past Medical History Allergies/Adverse Reactions: Allergies Allergy/AdvReac Type Severity Reaction Status Date / Time Fish Containing Products Allergy Verified 06/21/18 10:20 Home Medications: Ambulatory Orders Albuterol Sulfate Inhaler - [Ventolin Hfa Inhaler -] 1 - 2 inh PO QID PRN Insulin Glargine,Hum.rec.anlog [Lantus] 30 unit SQ DAILY 06/12/18 Insulin Regular [NOVOLIN R VIAL *IVPUSH / ER / ICU Only*] 8 unit SQ AC 06/12/18 Review of Systems - Review of Systems Able to Perform ROS?: Yes Comments:: 06/21/18 10:55 CONSTITUTIONAL: No fever, no chills, no fatigue EYES: No visual changes ENT: No ear pain, no sore throat CARDIOVASCULAR: No chest pain, no palpitations RESPIRATORY: No cough, no SOB GI: No abdominal pain, no nausea, no vomiting, no constipation, no diarrhea GENITOURINARY: No dysuria, no frequency, no hematuria MUSKULOSKELETAL: No backpain, no joint pain, no myalgias SKIN: (+) wound infection to back. No rash NEURO: No headache <Geri Vargas - Last Filed: 06/21/18 11:39> *Physical Exam - Vital Signs Last Vital Signs Temp Pulse Resp BP Pulse Ox 98.0 F 97 H 18 126/69 100 06/21/18 10:20 06/21/18 10:20 06/21/18 10:20 06/21/18 10:20 06/21/18 10:20 - Physical Exam Comments: 06/21/18 10:55 CONSTITUTIONAL: Well-appearing; well-nourished; in no apparent distress HEAD: Normocephalic; atraumatic EYES: PERRL; EOM intact ENMT: poor dentition. External appears normal; normal oropharynx NECK: Supple; non-tender; no cervical lymphadenopathy CARD: Normal S1, S2; no murmurs, rubs, or gallops RESP: Normal chest excursion with respiration; breath sounds clear and equal bilaterally; no wheezes, rhonchi, or rales ABD: Soft, non-distended; non-tender; no palpable organomegaly, no palpable hernias EXT: Normal ROM in all four extremities; non-tender to palpation; distal pulses intact SKIN: (+) Large mid back wound with dressing in place. Warm, dry, no rash NEURO: No focal neurological deficiencies. <Geri Vargas - Last Filed: 06/21/18 11:39> - Vital Signs Last Vital Signs Temp Pulse Resp BP Pulse Ox 98.0 F 97 H 18 126/69 100 06/21/18 10:20 06/21/18 10:20 06/21/18 10:20 06/21/18 10:20 06/21/18 10:20 <Seng Seals - Last Filed: 06/21/18 13:12> Moderate Sedation - Procedure Monitoring Vital Signs: Procedure Monitoring Vital Signs Temperature 98.0 F 06/21/18 10:20 Pulse Rate 97 H 06/21/18 10:20 Respiratory Rate 18 06/21/18 10:20 Blood Pressure 126/69 06/21/18 10:20 O2 Sat by Pulse Oximetry (%) 100 06/21/18 10:20 <Geri Vargas - Last Filed: 06/21/18 11:39> - Procedure Monitoring Vital Signs: Procedure Monitoring Vital Signs Temperature 98.0 F 06/21/18 10:20 Pulse Rate 97 H 06/21/18 10:20 Respiratory Rate 18 06/21/18 10:20 Blood Pressure 126/69 06/21/18 10:20 O2 Sat by Pulse Oximetry (%) 100 06/21/18 10:20 <Seng Seals - Last Filed: 06/21/18 13:12> ED Treatment Course - LABORATORY CBC & Chemistry Diagram: 06/21/18 11:30 06/21/18 11:30 <Seng Seals - Last Filed: 06/21/18 13:12> Medical Decision Making - Medical Decision Making 06/21/18 11:01 Dr. Cope was called and the patient's case was discussed. <Geri Vargas - Last Filed: 06/21/18 11:39> - Medical Decision Making 06/21/18 13:12 Patient is a 43-year-old male with diabetes who returns to the ER for treatment of a large MRSA related mid back assess. Patient denies fever or chills. Patient is noted to be hyperglycemic. Case discussed with surgery. Patient will require wound vacuum. Will admit. <Seng Seals - Last Filed: 06/21/18 13:12> *DC/Admit/Observation/Transfer - Attestations Scribe Attestion: 06/21/18 10:55 Documentation prepared by Geri Vargas, acting as medical support assistant for Seng Seals MD <Geri Vargas - Last Filed: 06/21/18 11:39> - Discharge Dispostion Decision to Admit order: Yes - Attestations Physician Attestion: 06/21/18 13:12 The documentation was prepared by the scribe under my direct supervision. I have reviewed the documentation which correctly represents the findings, medical decision-making and critical action taken by me. <Seng Seals - Last Filed: 06/21/18 13:12> Diagnosis at time of Disposition: Abscess - Discharge Dispostion Condition at time of disposition: Fair
[2018-06-21 12:05] LABS: INR 1.12 (0.83-1.09); PROTHROMBIN TIME (PATIENT) 13.2 SEC (9.7-13.0)
[2018-06-21 12:16] LABS: ALBUMIN 3.1 g/dl (3.4-5.0); ALK PHOS 134 U/L (45-117); ANION GAP 7 MMOL/L (8-16); BILIRUBIN,TOTAL 0.4 mg/dL (0.2-1); BLOOD UREA NITROGEN 23 mg/dL (7-18); CHLORIDE 99 mmol/L (98-107); CO2 26 mmol/L (21-32); CREATININE 1.2 mg/dL (0.55-1.3); POTASSIUM 4.6 mmol/L (3.5-5.1); SGOT/AST 28 U/L (15-37); SGPT/ALT 30 U/L (13-61); SODIUM 132 mmol/L (136-145); TOT PROT 6.8 g/dl (6.4-8.2)
[2018-06-21 12:19] LABS: BASO % 1.2 % (0-2.0); EOS % 1.4 % (0-4.5); HEMATOCRIT 34.6 % (35.4-49); HEMOGLOBIN 12.2 GM/dL (11.7-16.9); LYMPH % 17.2 % (8-40); MCH 30.6 pg (25.7-33.7); MCHC 35.2 g/dl (32.0-35.9); MEAN PLT VOLUME 6.9 fl (7.5-11.1); MONO % 9.2 % (3.8-10.2); PLATELET COUNT 692 K/MM3 (134-434); RBC 3.98 M/mm3 (4.00-5.60); RDW 14.2 % (11.9-15.9); WHITE BLOOD COUNT 6.9 K/mm3 (4.0-10.0)
[2018-06-21 12:28] LABS: GLUCOSE,RANDOM 336 mg/dL (74-106)
[2018-06-21] MEDS ORDERED: INSULIN REGULAR HUMAN 100 UNITS/ML *VIAL SQ ONE (13:11)
[2018-06-21] MEDS ORDERED: INSULIN (NOVOLOG) ASPART 100 UNITS/ML 10ML VIAL ONE (13:21)
--- NOTE | 2018-06-21 14:22 | CON.ID ---
Consult Consult Specialty:: infectious diseases Referred by:: Dr saez Reason for Consultation:: infected wound - History of Present Illness Chief Complaint: post op infected wound History of Present Illness: 43 year old male with a PMHx of HTN, HLD, IDDMII, Asthma, Iron Def. Anemia who was admitted 06/11/18 for a back abscess and left AMA 06/19/18 who returns today for similar symptoms. Recap of last admission patient had two I&D's with Dr. Barker (06/12/18 and 06/16/18) and was on IV abx since 06/11/2018. Wound and blood cultures were done, which revealed MRSA in the wound cultures and patient placed on isolation precautions. Patient was seen by surgical team throughout hospitalization and managing the wound with wound packing. Patient was also found to have an abscess of the left axilla that was painful and erythemetous. Surgery evaluated patient with possible plans to I&D the abscess of the left axilla. It was then determined that patient will likely need Wound Vac placed with possible nursing home IV abx use and eventual placement to nursing facility. However, patient left AMA due to personal reasons and stated he will return. Patient now returns as patient is homeless, requires a wound VAC, as per surgery, and will require usp facility to manage wound vac. Patient reports no worsening symptoms and no drainage of the wound. Denies fever, chills, nausea, vomiting, abdominal pain, chest pain, palpitations , shortness of breath, headaches, dizziness, loss of consciousness, acute vision changes, urinary or bowel symptoms. - History Source History Provided By: Patient Limitations to Obtaining History: No Limitations - Alcohol/Substance Use Hx Alcohol Use: No - Smoking History Smoking history: Current every day smoker Have you smoked in the past 12 months: Yes Aproximately how many cigarettes per day: 20 Home Medications - Allergies Allergies/Adverse Reactions: Allergies Allergy/AdvReac Type Severity Reaction Status Date / Time Fish Containing Products Allergy Verified 06/21/18 10:20 - Home Medications Home Medications: Ambulatory Orders Albuterol Sulfate Inhaler - [Ventolin Hfa Inhaler -] 1 - 2 inh PO QID PRN Insulin Glargine,Hum.rec.anlog [Lantus] 30 unit SQ DAILY 06/12/18 Insulin Regular [NOVOLIN R VIAL *IVPUSH / ER / ICU Only*] 8 unit SQ AC 06/12/18 Review of Systems - Review of Systems Constitutional: reports: No Symptoms Eyes: reports: No Symptoms HENT: reports: No Symptoms Neck: reports: No Symptoms Cardiovascular: reports: No Symptoms Respiratory: reports: No Symptoms Gastrointestinal: reports: No Symptoms Genitourinary: reports: No Symptoms Musculoskeletal: reports: No Symptoms Integumentary: reports: No Symptoms Neurological: reports: No Symptoms Endocrine: reports: No Symptoms Hematology/Lymphatic: reports: No Symptoms Psychiatric: reports: No Symptoms Physical Exam Vital Signs: Vital Signs Temperature 98.0 F 06/21/18 10:20 Pulse Rate 97 H 06/21/18 10:20 Respiratory Rate 18 06/21/18 10:20 Blood Pressure 126/69 06/21/18 10:20 O2 Sat by Pulse Oximetry (%) 100 06/21/18 10:20 Constitutional: Yes: Well Nourished, No Distress, Calm Cardiovascular: Yes: Regular Rate and Rhythm Respiratory: Yes: Regular, CTA Bilaterally Gastrointestinal: Yes: Normal Bowel Sounds, Soft Musculoskeletal: Yes: Back Pain Extremities: Yes: WNL Wound/Incision: Yes: Dressing Dry and Intact Neurological: Yes: Alert, Oriented Psychiatric: Yes: Alert, Oriented Labs: CBC, BMP 06/21/18 11:30 06/21/18 11:30 Assessment/Plan Problem List - Problems (1) Abscess Code(s): L02.91 - CUTANEOUS ABSCESS, UNSPECIFIED (2) Asthma Code(s): J45.909 - UNSPECIFIED ASTHMA, UNCOMPLICATED Qualifiers: Asthma severity: mild Asthma persistence: intermittent Asthma complication type: uncomplicated Qualified Code(s): J45.20 - Mild intermittent asthma, uncomplicated (3) Diabetes Code(s): E11.9 - TYPE 2 DIABETES MELLITUS WITHOUT COMPLICATIONS plan will continue vanco will change to oral tomorrow wound care rest as per the team
--- NOTE | 2018-06-21 14:49 | HP ---
CHIEF COMPLAINT: Back wound PCP: None HISTORY OF PRESENT ILLNESS: Patient is a 43 year old male with a PMHx of HTN, HLD, IDDMII, Asthma, Iron Def. Anemia who was admitted 06/11/18 for a back abscess and left AMA 06/19/18 who returns today for similar symptoms. Recap of last admission patient had two I&D's with Dr. Barker (06/12/18 and 06/16/18) and was on IV abx since 06/11. Wound and blood cultures were done, which revealed MRSA in the wound cultures and patient placed on isolation precautions. Patient was seen by surgical team throughout hospitalization and managing the wound with wound packing. Patient was also found to have an abscess of the left axilla that was painful and erythemetous. Surgery evaluated patient with possible plans to I&D the abscess of the left axilla. It was then determined that patient will likely need Wound Vac placed with possible shelter IV abx use and eventual placement to nursing facility. However, patient left AMA due to personal reasons and stated he will return. Patient now returns as patient is homeless, requires a wound VAC, as per surgery, and will require custodial facility to manage wound vac. Patient reports no worsening symptoms and no drainage of the wound. Denies fever, chills, nausea, vomiting, abdominal pain, chest pain, palpitations , shortness of breath, headaches, dizziness, loss of consciousness, acute vision changes, urinary or bowel symptoms. ER course was notable for: (1) Hyperglycemia (2) Insulin 6 units given (3) Recent Travel: Denies PAST MEDICAL HISTORY: HTN HLD IDDMII Asthma Iron Def. Anemia PAST SURGICAL HISTORY: Multiple I&D (>15) for abscesses on left side of the body. Social History: Smokin-4 cigarettes a day Alcohol: Denies Drugs: Quit 3 yrs ago when released from nursing home, used to use cocaine, PCP, marijuana Family History: Mother- from brain CA Brother- psych issues Allergies: Fish Containing Products Allergy (Verified 06/21/18 10:20) HOME MEDICATIONS: Home Medications Medication Instructions Recorded Albuterol Sulfate Inhaler - 1 - 2 inh PO QID PRN 06/12/18 [Ventolin Hfa Inhaler -] Insulin Glargine,Hum.rec.anlog 30 unit SQ DAILY 06/12/18 [Lantus] Insulin Regular [NOVOLIN R VIAL 8 unit SQ AC 06/12/18 *IVPUSH / ER / ICU Only*] REVIEW OF SYSTEMS CONSTITUTIONAL: Absent: fever, chills, diaphoresis, generalized weakness, malaise, loss of appetite, weight change HEENT: Absent: rhinorrhea, nasal congestion, throat pain, throat swelling, difficulty swallowing, mouth swelling, ear pain, eye pain, visual changes CARDIOVASCULAR: Absent: chest pain, syncope, palpitations, irregular heart rate, lightheadedness , peripheral edema RESPIRATORY: Absent: cough, shortness of breath, dyspnea with exertion, orthopnea, wheezing, stridor, hemoptysis GASTROINTESTINAL: Absent: abdominal pain, abdominal distension, nausea, vomiting, diarrhea, constipation, melena, hematochezia GENITOURINARY: Absent: dysuria, frequency, urgency, hesitancy, hematuria, flank pain, genital pain MUSCULOSKELETAL: Absent: myalgia, arthralgia, joint swelling, back pain, neck pain SKIN: back abscess, left axilla abscess Absent: itching, pallor HEMATOLOGIC/IMMUNOLOGIC: Absent: easy bleeding, easy bruising, lymphadenopathy, frequent infections ENDOCRINE: Absent: unexplained weight gain, unexplained weight loss, heat intolerance, cold intolerance NEUROLOGIC: Absent: headache, focal weakness or paresthesias, dizziness, unsteady gait, seizure, mental status changes, bladder or bowel incontinence PSYCHIATRIC: Absent: anxiety, depression, suicidal or homicidal ideation, hallucinations. PHYSICAL EXAMINATION Vital Signs - 24 hr 06/21/18 10:20 Temperature 98.0 F Pulse Rate 97 H Respiratory 18 Rate Blood Pressure 126/69 O2 Sat by Pulse 100 Oximetry (%) GENERAL: The patient is awake, alert, and fully oriented, in no acute distress. EYES: Sclera anicteric, conjunctiva clear. ENT: Moist mucous membranes. LUNGS: CTA b/ with no wheezes, no crackles, no accessory muscle use. HEART: RRR, Normal S1 and S2 without murmur, rub or gallop. ABDOMEN: Soft, nontender, nondistended, normoactive bowel sounds. EXTREMITIES: No edema. SKIN: (+)[id number] large wound of the back with surgical dressing c/d/i Laboratory Results 06/21/18 06/21/18 06/21/18 11:30 11:30 11:30 WBC 6.9 RBC 3.98 L Hgb 12.2 Hct 34.6 L MCV 87.0 MCH 30.6 MCHC 35.2 RDW 14.2 Plt Count 692 H MPV 6.9 L Absolute Neuts (auto) 4.9 Neutrophils % 71.0 Lymphocytes % 17.2 Monocytes % 9.2 Eosinophils % 1.4 Basophils % 1.2 Nucleated RBC % 0 PT with INR 13.20 H INR 1.12 H Sodium 132 L Potassium 4.6 Chloride 99 Carbon Dioxide 26 Anion Gap 7 L BUN 23 H Creatinine 1.2 Creat Clearance w eGFR > 60 Random Glucose 336 H* Calcium 9.0 Total Bilirubin 0.4 AST 28 ALT 30 Alkaline Phosphatase 134 H Total Protein 6.8 Albumin 3.1 L ASSESSMENT/PLAN: Patient is a 43 year old male with a PMHx of HTN, HLD, IDDMII, Asthma, Iron Def. Anemia who was admitted 06/11/18 for a back abscess and left AMA 06/19/18 who returns today for similar symptoms. Patient admitted to med/surg for further evaluation and management. Left Back Abscess with Multiple Abscesses (L paraspinal area, axilla, chest) -S/P two I&D's of the back (06/12/18 and 06/16/18) -Will continue Vancomycin 1250g Q24H IVPB -Patient wound cultures positive for MRSA on last admission -isolation precautions -Pain control with Roxicodone 5mg Q6H PRN, and Tylenol 650mg po Q4H -Continue wound packing with wet to dry Kurlex, as per surgical team -Surgery team to assess left axilla abscesses for possible I&D -Will need Wound vac and SNF placement HTN-controlled -Will resume Lisinopril 5mg po if patient has elevated BP -will continue to monitor HLD -On no medication. -LDL <70 IDDMII -A1c 10.9% (05/2018) -Continue 30u levemir ACBK, Levemir 10 units HS, Novolog 5units TIDAC -ISS -BGM History of Asthma -currently not in exacerbation -Continue with Ventolin PRN Iron Def. Anemia -Continue Ferrous Sulfate 325mg BIDWM -Continue to monitor CBC F/E/N -On no fluids, tolerating PO -Electrolytes wnl -Diabetic/Sodium controlled diet Prophylaxis -Lovenox 40mg SQ daily for DVT -No GI required Disposition -Full code -Continue IV Abx. Awaiting wound vac and then placement afterwards Pati Corona MD-[id number] Visit type - Emergency Visit Emergency Visit: Yes ED Registration Date: 06/21/18 Care time: The patient presented to the Emergency Department on the above date and was hospitalized for further evaluation of their emergent condition. - New Patient This patient is new to me today: Yes Date on this admission: 06/21/18 - Critical Care Critical Care patient: No
[2018-06-21] MEDS ORDERED: ACETAMINOPHEN 325 MG TABLET (FP) PO PRN (14:51)
[2018-06-21] MEDS ORDERED: ALBUTEROL SO4 0.083% IH SOL 2.5 MG/3 ML VIAL.NEB. NEB PRN (14:51)
[2018-06-21] MEDS ORDERED: VANCOMYCIN 1,250 MG in DEXTROSE 5%-WATER - 250 ML IVPB SCH (15:15)
[2018-06-21] MEDS: INSULIN SLIDING SCALE (NOVOLOG) 1 VIAL SQ SCH ×2 (16:29→22:00)
--- NOTE | 2018-06-21 17:27 | PN ---
Teaching Attending Note Name of Resident: Pati Corona ATTENDING PHYSICIAN STATEMENT I saw and evaluated the patient. I reviewed the resident's note and discussed the case with the resident. I agree with the resident's findings and plan as documented. SUBJECTIVE: Mr Walker says he is doing well and he is back to finish his treatment. No cp, sob, n/v. OBJECTIVE: Last Vital Signs Temp Pulse Resp BP Pulse Ox 36.7 C 97 H 18 126/69 100 06/21/18 10:20 06/21/18 10:20 06/21/18 10:20 06/21/18 10:20 06/21/18 10:20 Gen: nad Pulm: ctab w/o w/r/r CV: rrr w/o m/r/g Abd: +bs, s/nt/nd Ext: no c/c/e CBC, BMP 06/21/18 11:30 06/21/18 11:30 ASSESSMENT AND PLAN: -patient left AMA yesterday to take care of his dog -now back to finish treatment and states he can stay as long as needed to get better -admit back to med/surg -case d/w ID -restart zosyn -case d/w surgery, will need wound vac -restart aggressive insulin regimen -will need placement, SW aware Problem List - Problems (1) Abscess Code(s): L02.91 - CUTANEOUS ABSCESS, UNSPECIFIED (2) Asthma Code(s): J45.909 - UNSPECIFIED ASTHMA, UNCOMPLICATED Qualifiers: Asthma severity: mild Asthma persistence: intermittent Asthma complication type: uncomplicated Qualified Code(s): J45.20 - Mild intermittent asthma, uncomplicated (3) Diabetes Code(s): E11.9 - TYPE 2 DIABETES MELLITUS WITHOUT COMPLICATIONS
[2018-06-21] MEDS ORDERED: FERROUS SO4 325 MG TABLET (FP) ONE (18:10)
[2018-06-21] MEDS ORDERED: ENOXAPARIN NA (PORCINE) 100 MG/1 ML DISP.SYRIN SQ ONE (18:10)
[2018-06-21] MEDS ORDERED: INSULIN REGULAR HUMAN 100 UNITS/ML *VIAL ONE (18:11)
[2018-06-21] MEDS: FERROUS SO4 325 MG TABLET (FP) PO SCH (18:15)
[2018-06-21] MEDS: ENOXAPARIN NA (PORCINE) 40 MG/0.4 ML DISP.SYRIN SQ SCH (18:15)
[2018-06-21] MEDS: INSULIN (NOVOLOG) ASPART 100 UNITS/ML 10ML VIAL SQ SCH (18:16)
[2018-06-21] MEDS ORDERED: HEPARIN NA (PORCINE) 5,000 UNITS/ML 1ML VIAL SQ SCH (22:00)
[2018-06-21] MEDS: DOCUSATE SODIUM 100 MG CAPSULE (FP) PO SCH (22:00)
[2018-06-21] MEDS: INSULIN (LEVEMIR) 100 UNITS/ML UNITS SQ SCH (22:00)
[2018-06-21] MEDS: oxyCODONE HCL 5 MG TABLET PO PRN (23:48)
[2018-06-22 01:26] VITALS: BMI 27.6
[2018-06-22] MEDS ORDERED: PNEUMOC 13-VAL CONJ-DIP CRM/PF 0.5 ML DISP.SYRIN IM ONE (01:26)
[2018-06-22] MEDS: INSULIN SLIDING SCALE (NOVOLOG) 1 VIAL SQ SCH ×4 (06:41→21:50)
[2018-06-22] MEDS: INSULIN (LEVEMIR) 100 UNITS/ML UNITS SQ SCH ×2 (06:41→21:51)
[2018-06-22 08:17] LABS: HEMATOCRIT 30.9 % (35.4-49); HEMOGLOBIN 10.9 GM/dL (11.7-16.9); MCH 30.9 pg (25.7-33.7); MCHC 35.2 g/dl (32.0-35.9); MEAN CELL VOLUME 87.6 fl (80-96); MEAN PLT VOLUME 7.1 fl (7.5-11.1); PLATELET COUNT 618 K/MM3 (134-434); RBC 3.52 M/mm3 (4.00-5.60); RDW 13.7 % (11.9-15.9); WHITE BLOOD COUNT 5.9 K/mm3 (4.0-10.0)
[2018-06-22] MEDS: INSULIN (NOVOLOG) ASPART 100 UNITS/ML 10ML VIAL SQ SCH ×3 (08:23→17:39)
[2018-06-22] MEDS: FERROUS SO4 325 MG TABLET (FP) PO SCH ×2 (08:29→17:37)
[2018-06-22] MEDS: oxyCODONE HCL 5 MG TABLET PO PRN ×2 (08:30→17:37)
[2018-06-22 08:33] LABS: ANION GAP 7 MMOL/L (8-16); BLOOD UREA NITROGEN 26 mg/dL (7-18); CALCIUM 8.4 mg/dL (8.5-10.1); CHLORIDE 101 mmol/L (98-107); CO2 25 mmol/L (21-32); PHOSPHOROUS 4.1 mg/dL (2.5-4.9); POTASSIUM 4.6 mmol/L (3.5-5.1); SODIUM 132 mmol/L (136-145)
--- NOTE | 2018-06-22 08:46 | PN ---
Physical Exam: SUBJECTIVE: Patient seen and examined by me at bedside No acute events overnight. Offers no complaints Denies fever, chills, nausea, vomiting, abdominal pain, chest pain, palpitations , shortness of breath, headaches, dizziness, loss of consciousness, acute vision changes, urinary or bowel symptoms. OBJECTIVE: Vital Signs Period Temp Pulse Resp BP Sys/Sanders Pulse Ox Last 24 Hr 97.9 F-98.7 F 72-97 18-20 109-126/58-69 100 GENERAL: The patient is awake, alert, and fully oriented, in no acute distress. EYES: Sclera anicteric, conjunctiva clear. ENT: Moist mucous membranes. LUNGS: CTA b/ with no wheezes, no crackles, no accessory muscle use. HEART: RRR, Normal S1 and S2 without murmur, rub or gallop. ABDOMEN: Soft, nontender, nondistended, normoactive bowel sounds. EXTREMITIES: No edema. SKIN: (+)[id number] large wound of the back with surgical dressing c/d/i Laboratory Results 06/22/18 06:30 06/22/18 06:30 Active Medications Generic Name Dose Route Start Last Admin Trade Name Freq PRN Reason Stop Dose Admin Acetaminophen 650 mg 06/21/18 14:51 Tylenol - PO Q6H PRN FEVER Albuterol Sulfate 1 amp 06/21/18 14:51 Ventolin 0.083% Nebulizer Soln - NEB Q4H PRN SHORT OF BREATH/WHEEZING Docusate Sodium 300 mg 06/21/18 22:00 06/21/18 22:00 Colace - PO Not Given HS KRISTIAN Enoxaparin Sodium 40 mg 06/21/18 15:00 06/21/18 18:15 Lovenox - SQ 40 mg DAILY [facility] Administration Ferrous Sulfate 325 mg 06/21/18 17:30 06/21/18 18:15 Feosol - PO 325 mg BIDWM [facility] Administration Vancomycin HCl 1,250 mg/ 250 mls @ 166.667 mls/hr 06/21/18 15:15 06/21/18 16: 29 Dextrose IVPB 166.667 mls/hr Q24H K[facility]STIAN Administration Protocol Insulin Aspart 1 vial 06/21/18 16:30 06/22/18 06:41 Novolog Vial Sliding Scale - SQ 8 units ACHS K[facility] Administration Protocol Insulin Aspart 5 units 06/21/18 16:30 06/22/18 08:23 Novolog Vial SQ Not Given TIDAC [facility] Insulin Detemir 30 units 06/22/18 07:00 06/22/18 06:41 Levemir Vial SQ 30 units ACBK [facility]IAN Administration Insulin Detemir 10 units 06/21/18 22:00 06/21/18 22:00 Levemir Vial SQ Not Given HS [facility] Oxycodone HCl 5 mg 06/21/18 14:51 06/21/18 23:48 Roxicodone - PO 5 mg Q8H PRN Administration PAIN LEVEL 4 - 6 Pneumococcal Polyvalent Vaccine 0.5 ml 06/22/18 11:00 Pneumovax - IM 06/22/18 11:01 .ONCE ONE ASSESSMENT/PLAN: Patient is a 43 year old male with a PMHx of HTN, HLD, IDDMII, Asthma, Iron Def. Anemia who was admitted 06/11/18 for a back abscess and left AMA 06/19/18 who returns today for similar symptoms. Patient admitted to med/surg for further evaluation and management. Left Back Abscess with Multiple Abscesses (L paraspinal area, axilla, chest) -S/P two I&D's of the back (06/12/18 and 06/16/18) -Will continue Vancomycin 1250g Q24H IVPB (Day #2 on this admission) -Patient wound cultures positive for MRSA on last admission -isolation precautions -Pain control with Roxicodone 5mg Q6H PRN, and Tylenol 650mg po Q4H -Continue wound packing with wet to dry Kurlex, as per surgical team -Surgery team to assess left axilla abscesses for possible I&D -Will need Wound vac and SNF placement HTN-controlled -Will resume Lisinopril 5mg po if patient has elevated BP -will continue to monitor HLD -On no medication. -LDL <70 IDDMII -Still having hyperglycemia but patient has girl friend bringing in food from outside (Burgers and fries) -A1c 10.9% (05/2018) -Continue 30u levemir ACBK, Levemir 10 units HS, Novolog 5units TIDAC -ISS -BGM History of Asthma -currently in no acute exacerbation -Continue with Ventolin PRN Iron Def. Anemia -Continue Ferrous Sulfate 325mg BIDWM -Continue to monitor CBC F/E/N -On no fluids, tolerating PO -Electrolytes wnl -Diabetic/Sodium controlled diet Prophylaxis -Lovenox 40mg SQ daily for DVT -No GI required Disposition -Full code -Continue IV Abx. Awaiting wound vac and then placement afterwards Pati Corona MD-PGY3 Visit type - Emergency Visit Emergency Visit: Yes ED Registration Date: 06/21/18 Care time: The patient presented to the Emergency Department on the above date and was hospitalized for further evaluation of their emergent condition. - New Patient This patient is new to me today: No - Critical Care Critical Care patient: No
--- NOTE | 2018-06-22 10:18 | PN ---
Teaching Attending Note Name of Resident: Pati Corona ATTENDING PHYSICIAN STATEMENT I saw and evaluated the patient. I reviewed the resident's note and discussed the case with the resident. I agree with the resident's findings and plan as documented. SUBJECTIVE: Mr Walker says he is feeling well and is without complaint. No cp, sob, n/v OBJECTIVE: Last Vital Signs Temp Pulse Resp BP Pulse Ox 36.6 C 72 20 109/58 L 100 06/22/18 06:00 06/22/18 06:00 06/22/18 06:00 06/22/18 06:00 06/21/18 10:20 Gen: nad Pulm: ctab w/o w/r/r CV: rrr w/o m/r/g Abd: +bs, s/nt/nd Ext: no c/c/e Back: dry dressing in place CBC, BMP 06/22/18 06:30 06/22/18 06:30 ASSESSMENT AND PLAN: -appreciate ID and surgical assistance -awaiting wound vac -continue vancomycin, ID following and to suggest when can change to oral -glucose not controlled secondary to not receiving evening insulin and patient refusing scheduled insulin today -d/w patient and icu staff nurse importance of following insulin regimen -case d/w SW about placement Problem List - Problems (1) Abscess Code(s): L02.91 - CUTANEOUS ABSCESS, UNSPECIFIED (2) Asthma Code(s): J45.909 - UNSPECIFIED ASTHMA, UNCOMPLICATED Qualifiers: Asthma severity: mild Asthma persistence: intermittent Asthma complication type: uncomplicated Qualified Code(s): J45.20 - Mild intermittent asthma, uncomplicated (3) Diabetes Code(s): E11.9 - TYPE 2 DIABETES MELLITUS WITHOUT COMPLICATIONS
[2018-06-22] MEDS: ENOXAPARIN NA (PORCINE) 40 MG/0.4 ML DISP.SYRIN SQ SCH (10:40)
[2018-06-22] MEDS ORDERED: PNEUMOCOCCAL 23 VACCINE 0.5 ML VIAL IM ONE (11:00)
--- NOTE | 2018-06-22 14:19 | PN ---
Progress Note, Physician History of Present Illness: patient stable no new issues - Current Medication List Current Medications: Active Medications Acetaminophen (Tylenol -) 650 mg PO Q6H PRN PRN Reason: FEVER Albuterol Sulfate (Ventolin 0.083% Nebulizer Soln -) 1 amp NEB Q4H PRN PRN Reason: SHORT OF BREATH/WHEEZING Docusate Sodium (Colace -) 300 mg PO [facility] Last Admin: 06/21/18 22:00 Dose: Not Given Enoxaparin Sodium (Lovenox -) 40 mg SQ DAILY [facility] Last Admin: 06/22/18 10:40 Dose: 40 mg Ferrous Sulfate (Feosol -) 325 mg PO BIDWM [facility] Last Admin: 06/22/18 08:29 Dose: 325 mg Vancomycin HCl 1,250 mg/ (Dextrose) 250 mls @ 166.667 mls/hr IVPB Q24H [facility]; Protocol Last Admin: 06/21/18 16:29 Dose: 166.667 mls/hr Insulin Aspart (Novolog Vial Sliding Scale -) 1 vial SQ ACHS [facility]; Protocol Last Admin: 06/22/18 12:01 Dose: Not Given Insulin Aspart (Novolog Vial) 5 units SQ TIDAC [facility] Last Admin: 06/22/18 12:01 Dose: Not Given Insulin Detemir (Levemir Vial) 30 units SQ ACBK [facility] Last Admin: 06/22/18 06:41 Dose: 30 units Insulin Detemir (Levemir Vial) 10 units SQ HS [facility] Last Admin: 06/21/18 22:00 Dose: Not Given Oxycodone HCl (Roxicodone -) 5 mg PO Q8H PRN PRN Reason: PAIN LEVEL 4 - 6 Last Admin: 06/22/18 08:30 Dose: 5 mg - Objective Vital Signs: Vital Signs Temperature 98.0 F 06/22/18 09:00 Pulse Rate 82 06/22/18 09:00 Respiratory Rate 18 06/22/18 09:00 Blood Pressure 108/73 06/22/18 09:00 O2 Sat by Pulse Oximetry (%) 100 06/21/18 10:20 Constitutional: Yes: No Distress, Calm Cardiovascular: Yes: Regular Rate and Rhythm Respiratory: Yes: Regular, CTA Bilaterally Gastrointestinal: Yes: Normal Bowel Sounds, Soft Musculoskeletal: Yes: WNL Extremities: Yes: WNL Wound/Incision: Yes: Dressing Dry and Intact Neurological: Yes: Alert, Oriented Psychiatric: Yes: Alert, Oriented Labs: CBC, BMP 06/22/18 06:30 06/22/18 06:30 INR, PTT INR 1.12 (0.83-1.09) H 06/21/18 11:30 Assessment/Plan Problem List - Problems (1) Abscess Code(s): L02.91 - CUTANEOUS ABSCESS, UNSPECIFIED (2) Asthma Code(s): J45.909 - UNSPECIFIED ASTHMA, UNCOMPLICATED Qualifiers: Asthma severity: mild Asthma persistence: intermittent Asthma complication type: uncomplicated Qualified Code(s): J45.20 - Mild intermittent asthma, uncomplicated (3) Diabetes Code(s): E11.9 - TYPE 2 DIABETES MELLITUS WITHOUT COMPLICATIONS plan to look at the abscess of the axilla continue vanco for now plan is wound vac will switch him to oral rest as per the team
[2018-06-22 15:29] LABS: GLUCOSE,RANDOM 335 mg/dL (74-106)
--- NOTE | 2018-06-22 16:14 | PN ---
Progress Note (short form) - Note Progress Note: 43yo M s/p excision of back abscess seen and examined at bedside. Pt denies fever, chills, n/v. Last Vital Signs Temp Pulse Resp BP Pulse Ox 97.9 F 73 18 99/54 L 100 06/22/18 14:55 06/22/18 14:55 06/22/18 14:55 06/22/18 14:55 06/21/18 10:20 CBC, BMP 06/22/18 06:30 06/22/18 06:30 PE: Gen: a&O X 3 Resp: breathing comfortably Back: no erythema, wound is clean with good granulation tissue, serous drainage. Wound vac was placed. Problem List - Problems (1) Abscess Assessment/Plan: Plan -continue wound vac dressing -pt is cleared from surgery standpoint for discharge with wound care -follow up in Dr. Barker clinic in 1- 2 weeks Code(s): L02.91 - CUTANEOUS ABSCESS, UNSPECIFIED
[2018-06-22] MEDS: DOXYCYCLINE HYCLATE 100 MG CAPSULE PO SCH (17:38)
[2018-06-22] MEDS: DOCUSATE SODIUM 100 MG CAPSULE (FP) PO SCH ×2 (21:51→21:54)
[2018-06-23] MEDS: INSULIN (NOVOLOG) ASPART 100 UNITS/ML 10ML VIAL SQ SCH ×3 (06:32→16:32)
[2018-06-23] MEDS: INSULIN SLIDING SCALE (NOVOLOG) 1 VIAL SQ SCH ×4 (06:32→22:35)
[2018-06-23] MEDS: INSULIN (LEVEMIR) 100 UNITS/ML UNITS SQ SCH ×2 (06:33→22:35)
[2018-06-23] MEDS: oxyCODONE HCL 5 MG TABLET PO PRN ×2 (06:33→22:38)
[2018-06-23 08:11] LABS: HEMATOCRIT 30.9 % (35.4-49); HEMOGLOBIN 10.8 GM/dL (11.7-16.9); MCH 30.7 pg (25.7-33.7); MCHC 34.9 g/dl (32.0-35.9); MEAN CELL VOLUME 87.9 fl (80-96); MEAN PLT VOLUME 6.7 fl (7.5-11.1); PLATELET COUNT 631 K/MM3 (134-434); RBC 3.52 M/mm3 (4.00-5.60)
[2018-06-23 08:42] LABS: ANION GAP 6 MMOL/L (8-16); BLOOD UREA NITROGEN 22 mg/dL (7-18); CALCIUM 8.9 mg/dL (8.5-10.1); CHLORIDE 102 mmol/L (98-107); CO2 26 mmol/L (21-32); CREATININE 0.9 mg/dL (0.55-1.3); GLUCOSE,RANDOM 259 mg/dL (74-106); POTASSIUM 4.8 mmol/L (3.5-5.1); SODIUM 134 mmol/L (136-145)
[2018-06-23] MEDS: FERROUS SO4 325 MG TABLET (FP) PO SCH ×2 (08:44→17:48)
[2018-06-23] MEDS: ENOXAPARIN NA (PORCINE) 40 MG/0.4 ML DISP.SYRIN SQ SCH (09:55)
[2018-06-23] MEDS: DOXYCYCLINE HYCLATE 100 MG CAPSULE PO SCH ×2 (09:55→17:48)
--- NOTE | 2018-06-23 11:29 | PN ---
Physical Exam: SUBJECTIVE: Patient seen and examined by me at bedside No acute events overnight Patient offers no complaints Wound vac on. Now awaiting placement Denies fever, chills, nausea, vomiting, abdominal pain, chest pain, palpitations , shortness of breath, headaches, dizziness, urinary or bowel symptoms. OBJECTIVE: Vital Signs Period Temp Pulse Resp BP Sys/Sanders Pulse Ox Last 24 Hr 97.6 F-97.9 F 69-80 18-18 99-105/53-56 GENERAL: The patient is awake, alert, and fully oriented, in no acute distress. EYES: Sclera anicteric, conjunctiva clear. ENT: Moist mucous membranes. LUNGS: CTA b/ with no wheezes, no crackles, no accessory muscle use. HEART: RRR, Normal S1 and S2 without murmur, rub or gallop. ABDOMEN: Soft, nontender, nondistended, normoactive bowel sounds. EXTREMITIES: No edema. BACK: Wound back in place Laboratory Results 06/23/18 07:36 06/23/18 07:25 Active Medications Generic Name Dose Route Start Last Admin Trade Name Freq PRN Reason Stop Dose Admin Acetaminophen 650 mg 06/21/18 14:51 06/22/18 21:51 Tylenol - PO 650 mg Q6H PRN Administration FEVER Albuterol Sulfate 1 amp 06/21/18 14:51 Ventolin 0.083% Nebulizer Soln - NEB Q4H PRN SHORT OF BREATH/WHEEZING Docusate Sodium 300 mg 06/21/18 22:00 06/22/18 21:54 Colace - PO Not Given HS [facility] Doxycycline Hyclate 100 mg 06/22/18 18:00 06/23/18 09:55 Vibramycin - PO 100 mg BID@1000,1800 K[facility]STIAN Administration Enoxaparin Sodium 40 mg 06/21/18 15:00 06/23/18 09:55 Lovenox - SQ 40 mg DAILY [facility]STIAN Administration Ferrous Sulfate 325 mg 06/21/18 17:30 06/23/18 08:44 Feosol - PO 325 mg BIDWM [facility]ST[facility] Administration Insulin Aspart 1 vial 06/21/18 16:30 06/23/18 06:32 Novolog Vial Sliding Scale - SQ Not Given ACHS [facility] Protocol Insulin Aspart 5 units 06/21/18 16:30 06/23/18 06:32 Novolog Vial SQ Not Given TIDAC [facility] Insulin Detemir 30 units 06/22/18 07:00 06/23/18 06:33 Levemir Vial SQ 30 units ACBK K[facility]STIAN Administration Insulin Detemir 10 units 06/21/18 22:00 06/22/18 21:51 Levemir Vial SQ 10 units HS [facility] Administration Oxycodone HCl 5 mg 06/21/18 14:51 06/23/18 06:33 Roxicodone - PO 5 mg Q8H PRN Administration PAIN LEVEL 4 - 6 ASSESSMENT/PLAN: Patient is a 43 year old male with a PMHx of HTN, HLD, IDDMII, Asthma, Iron Def. Anemia who was admitted 06/11/18 for a back abscess and left AMA 06/19/18 who returns today for similar symptoms. Patient admitted to med/surg for further evaluation and management. Left Back Abscess with Multiple Abscesses (L paraspinal area, axilla, chest) -S/P two I&D's of the back (06/12/18 and 06/16/18) -Started on Doxycycline 100mg po BID (Day #1) -Patient wound cultures positive for MRSA on last admission -isolation precautions -Pain control with Roxicodone 5mg Q6H PRN, and Tylenol 650mg po Q4H -Wound Vac in place -Surgery team to assess left axilla abscesses for possible I&D -Awaiting SNF placement HTN-controlled -Will resume Lisinopril 5mg po if patient has elevated BP -will continue to monitor HLD -On no medication. -LDL <70 IDDMII -A1c 10.9% (05/2018) -Continue 30u levemir ACBK, Levemir 10 units HS, Novolog 5units TIDAC -ISS -BGM History of Asthma -currently in no acute exacerbation -Continue with Ventolin PRN Iron Def. Anemia -Continue Ferrous Sulfate 325mg BIDWM -Continue to monitor CBC F/E/N -On no fluids, tolerating PO -Electrolytes wnl -Diabetic/Sodium controlled diet Prophylaxis -Lovenox 40mg SQ daily for DVT -No GI required Disposition -Full code -Continue IV Abx. Awaiting placement Pati Corona MD-PGY3 Visit type - Emergency Visit Emergency Visit: Yes ED Registration Date: 06/21/18 Care time: The patient presented to the Emergency Department on the above date and was hospitalized for further evaluation of their emergent condition. - New Patient This patient is new to me today: No - Critical Care Critical Care patient: No
--- NOTE | 2018-06-23 12:08 | PN ---
Progress Note, Physician History of Present Illness: stable no new issue wound vac - Current Medication List Current Medications: Active Medications Acetaminophen (Tylenol -) 650 mg PO Q6H PRN PRN Reason: FEVER Last Admin: 06/22/18 21:51 Dose: 650 mg Albuterol Sulfate (Ventolin 0.083% Nebulizer Soln -) 1 amp NEB Q4H PRN PRN Reason: SHORT OF BREATH/WHEEZING Docusate Sodium (Colace -) 300 mg PO [facility] Last Admin: 06/22/18 21:54 Dose: Not Given Doxycycline Hyclate (Vibramycin -) 100 mg PO BID@1000,1800 [facility] Last Admin: 06/23/18 09:55 Dose: 100 mg Enoxaparin Sodium (Lovenox -) 40 mg SQ DAILY [facility] Last Admin: 06/23/18 09:55 Dose: 40 mg Ferrous Sulfate (Feosol -) 325 mg PO BIDWM [facility] Last Admin: 06/23/18 08:44 Dose: 325 mg Insulin Aspart (Novolog Vial Sliding Scale -) 1 vial SQ [facility]; Protocol Last Admin: 06/23/18 11:36 Dose: 6 units Insulin Aspart (Novolog Vial) 5 units SQ TIDAC [facility] Last Admin: 06/23/18 11:35 Dose: Not Given Insulin Detemir (Levemir Vial) 30 units SQ ACBK [facility] Last Admin: 06/23/18 06:33 Dose: 30 units Insulin Detemir (Levemir Vial) 10 units SQ [facility] Last Admin: 06/22/18 21:51 Dose: 10 units Oxycodone HCl (Roxicodone -) 5 mg PO Q8H PRN PRN Reason: PAIN LEVEL 4 - 6 Last Admin: 06/23/18 06:33 Dose: 5 mg - Objective Vital Signs: Vital Signs Temperature 97.8 F 06/23/18 06:00 Pulse Rate 80 06/23/18 06:00 Respiratory Rate 18 06/23/18 06:00 Blood Pressure 105/56 L 06/23/18 06:00 O2 Sat by Pulse Oximetry (%) 100 06/21/18 10:20 Constitutional: Yes: No Distress, Calm Cardiovascular: Yes: Regular Rate and Rhythm Respiratory: Yes: Regular, CTA Bilaterally Gastrointestinal: Yes: Normal Bowel Sounds, Soft Musculoskeletal: Yes: WNL Extremities: Yes: WNL Neurological: Yes: Alert, Other (wound vac in place) Psychiatric: Yes: Alert, Oriented Labs: CBC, BMP 06/23/18 07:36 06/23/18 07:25 INR, PTT INR 1.12 (0.83-1.09) H 06/21/18 11:30 Assessment/Plan Problem List - Problems (1) Abscess Code(s): L02.91 - CUTANEOUS ABSCESS, UNSPECIFIED (2) Asthma Code(s): J45.909 - UNSPECIFIED ASTHMA, UNCOMPLICATED Qualifiers: Asthma severity: mild Asthma persistence: intermittent Asthma complication type: uncomplicated Qualified Code(s): J45.20 - Mild intermittent asthma, uncomplicated (3) Diabetes Code(s): E11.9 - TYPE 2 DIABETES MELLITUS WITHOUT COMPLICATIONS plan continue doxy to be given for 7 more days wound care wound vac
--- NOTE | 2018-06-23 17:24 | PN ---
Teaching Attending Note Name of Resident: Pati Corona ATTENDING PHYSICIAN STATEMENT I saw and evaluated the patient. I reviewed the resident's note and discussed the case with the resident. I agree with the resident's findings and plan as documented. SUBJECTIVE: Mr Walker is without complaint. No cp, sob, n/v. OBJECTIVE: Last Vital Signs Temp Pulse Resp BP Pulse Ox 36.9 C 92 H 18 106/81 100 06/23/18 15:45 06/23/18 15:45 06/23/18 15:45 06/23/18 15:45 06/21/18 10:20 Gen: nad Pulm: ctab w/o w/r/r CV: rrr w/o m/r/g Abd: +bs, s/nt/nd Ext: no c/c/e CBC, BMP 06/23/18 07:36 06/23/18 07:25 ASSESSMENT AND PLAN: -wound vac placed -now on doxycycline -continue current medications -awaiting placement Problem List - Problems (1) Abscess Code(s): L02.91 - CUTANEOUS ABSCESS, UNSPECIFIED (2) Asthma Code(s): J45.909 - UNSPECIFIED ASTHMA, UNCOMPLICATED Qualifiers: Asthma severity: mild Asthma persistence: intermittent Asthma complication type: uncomplicated Qualified Code(s): J45.20 - Mild intermittent asthma, uncomplicated (3) Diabetes Code(s): E11.9 - TYPE 2 DIABETES MELLITUS WITHOUT COMPLICATIONS
[2018-06-23] MEDS: DOCUSATE SODIUM 100 MG CAPSULE (FP) PO SCH (22:35)
[2018-06-24] MEDS: INSULIN (NOVOLOG) ASPART 100 UNITS/ML 10ML VIAL SQ SCH ×3 (06:08→17:19)
[2018-06-24] MEDS: INSULIN (LEVEMIR) 100 UNITS/ML UNITS SQ SCH (06:08)
[2018-06-24] MEDS: INSULIN SLIDING SCALE (NOVOLOG) 1 VIAL SQ SCH ×4 (06:09→22:09)
[2018-06-24] MEDS: oxyCODONE HCL 5 MG TABLET PO PRN ×2 (08:03→17:31)
[2018-06-24] MEDS: FERROUS SO4 325 MG TABLET (FP) PO SCH ×2 (08:03→17:31)
[2018-06-24 09:32] LABS: BASO % 1.3 % (0-2.0); EOS % 4.2 % (0-4.5); HEMATOCRIT 36.1 % (35.4-49); HEMOGLOBIN 12.3 GM/dL (11.7-16.9); LYMPH % 42.4 % (8-40); MCHC 34.2 g/dl (32.0-35.9); MEAN CELL VOLUME 87.8 fl (80-96); MONO % 12.6 % (3.8-10.2); NEUT % 39.5 % (42.8-82.8); PLATELET COUNT 783 K/MM3 (134-434); RBC 4.11 M/mm3 (4.00-5.60); WHITE BLOOD COUNT 5.7 K/mm3 (4.0-10.0)
[2018-06-24 10:13] LABS: ALBUMIN 3.2 g/dl (3.4-5.0); ALK PHOS 106 U/L (45-117); ANION GAP 8 MMOL/L (8-16); BILIRUBIN,TOTAL 0.2 mg/dL (0.2-1); BLOOD UREA NITROGEN 27 mg/dL (7-18); CHLORIDE 106 mmol/L (98-107); CO2 25 mmol/L (21-32); CREATININE 0.9 mg/dL (0.55-1.3); POTASSIUM 4.6 mmol/L (3.5-5.1); SGOT/AST 17 U/L (15-37); SGPT/ALT 28 U/L (13-61); SODIUM 140 mmol/L (136-145); TOT PROT 6.8 g/dl (6.4-8.2)
[2018-06-24 10:15] LABS: GLUCOSE,RANDOM 40 mg/dL (74-106)
[2018-06-24] MEDS: DOXYCYCLINE HYCLATE 100 MG CAPSULE PO SCH ×2 (10:40→17:31)
[2018-06-24] MEDS: ENOXAPARIN NA (PORCINE) 40 MG/0.4 ML DISP.SYRIN SQ SCH (10:40)
--- NOTE | 2018-06-24 14:05 | PN ---
Progress Note, Physician History of Present Illness: stable no new issues - Current Medication List Current Medications: Active Medications Acetaminophen (Tylenol -) 650 mg PO Q6H PRN PRN Reason: FEVER Last Admin: 06/22/18 21:51 Dose: 650 mg Albuterol Sulfate (Ventolin 0.083% Nebulizer Soln -) 1 amp NEB Q4H PRN PRN Reason: SHORT OF BREATH/WHEEZING Docusate Sodium (Colace -) 300 mg PO HS [facility] Last Admin: 06/23/18 22:35 Dose: Not Given Doxycycline Hyclate (Vibramycin -) 100 mg PO BID@1000,1800 [facility] Last Admin: 06/24/18 10:40 Dose: 100 mg Enoxaparin Sodium (Lovenox -) 40 mg SQ DAILY [facility] Last Admin: 06/24/18 10:40 Dose: 40 mg Ferrous Sulfate (Feosol -) 325 mg PO BIDWM [facility] Last Admin: 06/24/18 08:03 Dose: 325 mg Insulin Aspart (Novolog Vial Sliding Scale -) [facility]; [facility] Last Admin: 06/24/18 12:33 Dose: 2 units Insulin Aspart (Novolog Vial) 5 units SQ TIDAC [facility] Last Admin: 06/24/18 12:29 Dose: Not Given Insulin Detemir (Levemir Vial) 30 units SQ ACBK [facility] Last Admin: 06/24/18 06:08 Dose: 30 units Insulin Detemir (Levemir Vial) 10 units SQ [facility] Last Admin: 06/23/18 22:35 Dose: 10 units Oxycodone HCl (Roxicodone -) 5 mg PO Q8H PRN PRN Reason: PAIN LEVEL 4 - 6 Last Admin: 06/24/18 08:03 Dose: 5 mg - Objective Vital Signs: Vital Signs Temperature 97.2 F L 06/24/18 09:53 Pulse Rate 84 06/24/18 09:53 Respiratory Rate 18 06/24/18 09:53 Blood Pressure 130/85 06/24/18 09:53 O2 Sat by Pulse Oximetry (%) 100 06/23/18 21:00 Constitutional: Yes: No Distress, Calm Cardiovascular: Yes: Regular Rate and Rhythm Respiratory: Yes: Regular, CTA Bilaterally Gastrointestinal: Yes: Normal Bowel Sounds, Soft Musculoskeletal: Yes: WNL Extremities: Yes: WNL Wound/Incision: Yes: Other (wound vac in place) Psychiatric: Yes: Alert, Oriented Labs: CBC, BMP 06/24/18 08:00 06/24/18 08:00 INR, PTT INR 1.12 (0.83-1.09) H 06/21/18 11:30 Assessment/Plan Problem List - Problems (1) Abscess Code(s): L02.91 - CUTANEOUS ABSCESS, UNSPECIFIED (2) Asthma Code(s): J45.909 - UNSPECIFIED ASTHMA, UNCOMPLICATED Qualifiers: Asthma severity: mild Asthma persistence: intermittent Asthma complication type: uncomplicated Qualified Code(s): J45.20 - Mild intermittent asthma, uncomplicated (3) Diabetes Code(s): E11.9 - TYPE 2 DIABETES MELLITUS WITHOUT COMPLICATIONS plan continue current abx wound care rest as per the team
--- NOTE | 2018-06-24 18:37 | PN ---
Progress Note, Physician Chief Complaint: Mr Walker is without complaint. - Current Medication List Current Medications: Active Medications Acetaminophen (Tylenol -) 650 mg PO Q6H PRN PRN Reason: FEVER Last Admin: 06/22/18 21:51 Dose: 650 mg Albuterol Sulfate (Ventolin 0.083% Nebulizer Soln -) 1 amp NEB Q4H PRN PRN Reason: SHORT OF BREATH/WHEEZING Docusate Sodium (Colace -) 300 mg PO HS [facility] Last Admin: 06/23/18 22:35 Dose: Not Given Doxycycline Hyclate (Vibramycin -) 100 mg PO BID@1000,1800 [facility] Last Admin: 06/24/18 17:31 Dose: 100 mg Enoxaparin Sodium (Lovenox -) 40 mg SQ DAILY [facility] Last Admin: 06/24/18 10:40 Dose: 40 mg Ferrous Sulfate (Feosol -) 325 mg PO BIDWM [facility] Last Admin: 06/24/18 17:31 Dose: 325 mg Insulin Aspart (Novolog Vial Sliding Scale -) 1 vial SQ ACHS [facility]; Protocol Last Admin: 06/24/18 17:19 Dose: Not Given Insulin Aspart (Novolog Vial) 5 units SQ TIDAC [facility] Last Admin: 06/24/18 17:19 Dose: Not Given Insulin Detemir (Levemir Vial) 30 units SQ ACBK [facility] Last Admin: 06/24/18 06:08 Dose: 30 units Oxycodone HCl (Roxicodone -) 5 mg PO Q6H PRN PRN Reason: PAIN LEVEL 4 - 6 Last Admin: 06/24/18 17:31 Dose: 5 mg - Objective Vital Signs: Vital Signs Temperature 36.2 C L 06/24/18 09:53 Pulse Rate 84 06/24/18 09:53 Respiratory Rate 18 06/24/18 09:53 Blood Pressure 130/85 06/24/18 09:53 O2 Sat by Pulse Oximetry (%) 100 06/24/18 09:00 Constitutional: Yes: Well Nourished, No Distress, Calm Cardiovascular: Yes: Regular Rate and Rhythm. No: Gallop, Murmur, Rub Respiratory: Yes: Regular, CTA Bilaterally. No: Rales, Rhonchi, Wheezes Gastrointestinal: Yes: Normal Bowel Sounds, Soft. No: Distention, Tenderness Extremities: Yes: WNL Edema: No Labs: CBC, BMP 06/24/18 08:00 06/24/18 08:00 INR, PTT INR 1.12 (0.83-1.09) H 06/21/18 11:30 Problem List - Problems (1) Abscess Code(s): L02.91 - CUTANEOUS ABSCESS, UNSPECIFIED (2) Asthma Code(s): J45.909 - UNSPECIFIED ASTHMA, UNCOMPLICATED Qualifiers: Asthma severity: mild Asthma persistence: intermittent Asthma complication type: uncomplicated Qualified Code(s): J45.20 - Mild intermittent asthma, uncomplicated (3) Diabetes Code(s): E11.9 - TYPE 2 DIABETES MELLITUS WITHOUT COMPLICATIONS (4) Thrombocytosis Code(s): D47.3 - ESSENTIAL (HEMORRHAGIC) THROMBOCYTHEMIA Assessment/Plan -will consult hematology for elevated platelets -stop evening levemir since with hypoglycemia in the am -continue current management -awaiting placement
[2018-06-24] MEDS ORDERED: PT OWN MED DRAWER 7, Y5N ONE (21:13)
--- NOTE | 2018-06-24 22:01 | CONSULT ---
Consult Consult Specialty:: heme Referred by:: Dr. Rausch Reason for Consultation:: Thrombocytosis - History of Present Illness Chief Complaint: Abscess History of Present Illness: 43M with HTN, DM, Asthma admitted with MRSA back abscess s/p multiple I&Ds, wound vac and left axilla abscess, on Abx. Hematology consulted for thrombocytosis. Plt count normal on admission (300s), increased to 600-700s. No prior labs available. Pt not aware of plt abnormalities in the past. Denies chest pain, SOB, HAs, bleeding. - Alcohol/Substance Use Hx Alcohol Use: No - Smoking History Smoking history: Current every day smoker Have you smoked in the past 12 months: Yes Aproximately how many cigarettes per day: 20 Home Medications - Allergies Allergies/Adverse Reactions: Allergies Allergy/AdvReac Type Severity Reaction Status Date / Time Fish Containing Products Allergy Verified 06/21/18 10:20 - Home Medications Home Medications: Ambulatory Orders Albuterol Sulfate Inhaler - [Ventolin Hfa Inhaler -] 1 - 2 inh PO QID PRN Insulin Glargine,Hum.rec.anlog [Lantus] 30 unit SQ DAILY 06/12/18 Insulin Regular [NOVOLIN R VIAL *IVPUSH / ER / ICU Only*] 8 unit SQ AC 06/12/18 Review of Systems - Review of Systems Constitutional: reports: Night Sweats (x 1 week [employer]) Cardiovascular: reports: No Symptoms Respiratory: reports: No Symptoms Gastrointestinal: reports: No Symptoms Neurological: reports: No Symptoms Physical Exam Vital Signs: Vital Signs Temperature 97.2 F L 06/24/18 09:53 Pulse Rate 84 06/24/18 09:53 Respiratory Rate 18 06/24/18 09:53 Blood Pressure 130/85 06/24/18 09:53 O2 Sat by Pulse Oximetry (%) 100 06/24/18 09:00 Constitutional: Yes: No Distress Eyes: Yes: Conjunctiva Clear Cardiovascular: Yes: Regular Rate and Rhythm Respiratory: Yes: Regular, CTA Bilaterally Gastrointestinal: Yes: Soft Edema: No Labs: CBC, BMP 06/24/18 08:00 06/24/18 08:00 Assessment/Plan 43M with HTN, IDDMII, Asthma admitted with recurrent abscess s/p multiple I&Ds and wound vac. Thrombocytosis is most likely reactive 2/2 infection, interventions. Would continue to trend platelet count.
[2018-06-24] MEDS: DOCUSATE SODIUM 100 MG CAPSULE (FP) PO SCH (22:08)
[2018-06-25] MEDS: oxyCODONE HCL 5 MG TABLET PO PRN ×4 (00:25→23:19)
[2018-06-25] MEDS: INSULIN SLIDING SCALE (NOVOLOG) 1 VIAL SQ SCH ×4 (07:04→23:19)
[2018-06-25] MEDS: INSULIN (LEVEMIR) 100 UNITS/ML UNITS SQ SCH (07:05)
[2018-06-25] MEDS: INSULIN (NOVOLOG) ASPART 100 UNITS/ML 10ML VIAL SQ SCH ×2 (07:10→11:15)
[2018-06-25 07:37] LABS: BASO % 2.8 % (0-2.0); HEMATOCRIT 35.7 % (35.4-49); HEMOGLOBIN 12.5 GM/dL (11.7-16.9); LYMPH % 26.7 % (8-40); MCH 30.9 pg (25.7-33.7); MCHC 35.2 g/dl (32.0-35.9); MEAN PLT VOLUME 7.1 fl (7.5-11.1); MONO % 11.1 % (3.8-10.2); NEUT % 55.4 % (42.8-82.8); PLATELET COUNT 604 K/MM3 (134-434); RBC 4.06 M/mm3 (4.00-5.60); RDW 14.1 % (11.9-15.9); WHITE BLOOD COUNT 5.3 K/mm3 (4.0-10.0)
[2018-06-25 08:00] LABS: ANION GAP 7 MMOL/L (8-16); BLOOD UREA NITROGEN 23 mg/dL (7-18); CALCIUM 8.9 mg/dL (8.5-10.1); CHLORIDE 102 mmol/L (98-107); CO2 24 mmol/L (21-32); CREATININE 0.9 mg/dL (0.55-1.3); GLUCOSE,RANDOM 289 mg/dL (74-106); PHOSPHOROUS 3.9 mg/dL (2.5-4.9); SODIUM 134 mmol/L (136-145)
[2018-06-25] MEDS: DOXYCYCLINE HYCLATE 100 MG CAPSULE PO SCH (09:23)
[2018-06-25] MEDS: FERROUS SO4 325 MG TABLET (FP) PO SCH (09:23)
[2018-06-25] MEDS: ENOXAPARIN NA (PORCINE) 40 MG/0.4 ML DISP.SYRIN SQ SCH (09:23)
--- NOTE | 2018-06-25 10:20 | PN ---
Physical Exam: SUBJECTIVE: Patient seen and examined by me at bedside No acute events overnight Patient offers no complaints Still waiting for placement Denies fever, chills, nausea, vomiting, abdominal pain, chest pain, palpitations , shortness of breath, headaches, dizziness, urinary or bowel symptoms. OBJECTIVE: Vital Signs Period Temp Pulse Resp BP Sys/Sanders Pulse Ox Last 24 Hr 97.9 F-98 F 70-72 18-20 101-108/53-60 100 GENERAL: The patient is awake, alert, and fully oriented, in no acute distress. EYES: Sclera anicteric, conjunctiva clear. ENT: Moist mucous membranes. LUNGS: CTA b/ with no wheezes, no crackles, no accessory muscle use. HEART: RRR, Normal S1 and S2 without murmur, rub or gallop. ABDOMEN: Soft, nontender, nondistended, normoactive bowel sounds. EXTREMITIES: No edema. BACK: Wound back in place Laboratory Results 06/25/18 06:40 06/25/18 06:40 Active Medications Generic Name Dose Route Start Last Admin Trade Name Freq PRN Reason Stop Dose Admin Acetaminophen 650 mg 06/21/18 14:51 06/22/18 21:51 Tylenol - PO 650 mg Q6H PRN Administration FEVER Albuterol Sulfate 1 amp 06/21/18 14:51 Ventolin 0.083% Nebulizer Soln - NEB Q4H PRN SHORT OF BREATH/WHEEZING Docusate Sodium 300 mg 06/21/18 22:00 06/24/18 22:08 Colace - PO Not Given HS [facility] Doxycycline Hyclate 100 mg 06/22/18 18:00 06/25/18 09:23 Vibramycin - PO 100 mg BID@1000,1800 [facility] Administration Enoxaparin Sodium 40 mg 06/21/18 15:00 06/25/18 09:23 Lovenox - SQ 40 mg DAILY [facility] Administration Ferrous Sulfate 325 mg 06/21/18 17:30 06/25/18 09:23 Feosol - PO 325 mg BIDWM [facility] Administration Insulin Aspart 1 vial 06/21/18 16:30 06/25/18 07:04 Novolog Vial Sliding Scale - SQ 6 units ACHS [facility] Administration Protocol Insulin Aspart 5 units 06/21/18 16:30 06/25/18 07:10 Novolog Vial SQ Not Given TIDAC [facility] Insulin Detemir 30 units 06/22/18 07:00 06/25/18 07:05 Levemir Vial SQ 30 units ACBK [facility] Administration Oxycodone HCl 5 mg 06/24/18 14:10 06/25/18 09:23 Roxicodone - PO 5 mg Q6H PRN Administration PAIN LEVEL 4 - 6 ASSESSMENT/PLAN: Patient is a 43 year old male with a PMHx of HTN, HLD, IDDMII, Asthma, Iron Def. Anemia who was admitted 06/11/18 for a back abscess and left AMA 06/19/18 who returns today for similar symptoms. Patient admitted to med/surg for further evaluation and management. Left Back Abscess with Multiple Abscesses (L paraspinal area, axilla, chest) -S/P two I&D's of the back (06/12/18 and 06/16/18) -Started on Doxycycline 100mg po BID (Day #4) -Patient wound cultures positive for MRSA on last admission -isolation precautions -Pain control with Roxicodone 5mg Q6H PRN, and Tylenol 650mg po Q4H -Wound Vac in place -Awaiting SNF placement Thrombocytosis -Hematology consult placed and recommended to follow cbc as patient is likely having reactive thrombocytosis from infections and procedures done -Will continue to trend CBC HTN-controlled -Will resume Lisinopril 5mg po if patient has elevated BP -will continue to monitor HLD -On no medication. -LDL <70 IDDMII -A1c 10.9% (05/2018) -Continue 30u levemir ACBK, Levemir 10 units HS, discontinued Novolog 5 units TID as patient was having hypoglycemic episodes -ISS -BGM History of Asthma -currently in no acute exacerbation -Continue with Ventolin PRN Iron Def. Anemia -Continue Ferrous Sulfate 325mg BIDWM -Continue to monitor CBC F/E/N -On no fluids, tolerating PO -Electrolytes wnl -Diabetic/Sodium controlled diet Prophylaxis -Lovenox 40mg SQ daily for DVT -No GI required Disposition -Full code -Continue IV Abx. Awaiting placement Pati Corona [id number] Visit type - Emergency Visit Emergency Visit: Yes ED Registration Date: 06/21/18 Care time: The patient presented to the Emergency Department on the above date and was hospitalized for further evaluation of their emergent condition. - New Patient This patient is new to me today: No - Critical Care Critical Care patient: No
--- NOTE | 2018-06-25 11:49 | PN ---
Progress Note, Physician History of Present Illness: stable doing well - Current Medication List Current Medications: Active Medications Acetaminophen (Tylenol -) 650 mg PO Q6H PRN PRN Reason: FEVER Last Admin: 06/22/18 21:51 Dose: 650 mg Albuterol Sulfate (Ventolin 0.083% Nebulizer Soln -) 1 amp NEB Q4H PRN PRN Reason: SHORT OF BREATH/WHEEZING Docusate Sodium (Colace -) 300 mg PO HS [facility] Last Admin: 06/24/18 22:08 Dose: Not Given Doxycycline Hyclate (Vibramycin -) 100 mg PO BID@1000,1800 [facility] Last Admin: 06/25/18 09:23 Dose: 100 mg Enoxaparin Sodium (Lovenox -) 40 mg SQ DAILY [facility] Last Admin: 06/25/18 09:23 Dose: 40 mg Ferrous Sulfate (Feosol -) 325 mg PO BIDWM [facility] Last Admin: 06/25/18 09:23 Dose: 325 mg Insulin Aspart (Novolog Vial Sliding Scale -) 1 vial SQ ACHS [facility]; Protocol Last Admin: 06/25/18 11:15 Dose: Not Given Insulin Aspart (Novolog Vial) 5 units SQ TIDAC [facility] Last Admin: 06/25/18 11:15 Dose: Not Given Insulin Detemir (Levemir Vial) 30 units SQ ACBK [facility] Last Admin: 06/25/18 07:05 Dose: 30 units Oxycodone HCl (Roxicodone -) 5 mg PO Q6H PRN PRN Reason: PAIN LEVEL 4 - 6 Last Admin: 06/25/18 09:23 Dose: 5 mg - Objective Vital Signs: Vital Signs Temperature 97.9 F 06/25/18 06:00 Pulse Rate 72 06/25/18 06:00 Respiratory Rate 18 06/25/18 06:00 Blood Pressure 101/53 L 06/25/18 06:00 O2 Sat by Pulse Oximetry (%) 100 06/24/18 21:00 Constitutional: Yes: No Distress, Calm Cardiovascular: Yes: Regular Rate and Rhythm Respiratory: Yes: Regular, CTA Bilaterally Gastrointestinal: Yes: Normal Bowel Sounds, Soft Musculoskeletal: Yes: WNL Extremities: Yes: WNL Wound/Incision: Yes: Other (wound vac in place) Psychiatric: Yes: Alert, Oriented Labs: CBC, BMP 06/25/18 06:40 06/25/18 06:40 INR, PTT INR 1.12 (0.83-1.09) H 06/21/18 11:30 Assessment/Plan Problem List - Problems (1) Abscess Code(s): L02.91 - CUTANEOUS ABSCESS, UNSPECIFIED (2) Asthma Code(s): J45.909 - UNSPECIFIED ASTHMA, UNCOMPLICATED Qualifiers: Asthma severity: mild Asthma persistence: intermittent Asthma complication type: uncomplicated Qualified Code(s): J45.20 - Mild intermittent asthma, uncomplicated (3) Diabetes Code(s): E11.9 - TYPE 2 DIABETES MELLITUS WITHOUT COMPLICATIONS plan continue oral abx will deescalte once 2 weeks are over
--- NOTE | 2018-06-25 13:14 | PN ---
Teaching Attending Note Name of Resident: Pati Corona ATTENDING PHYSICIAN STATEMENT I saw and evaluated the patient. I reviewed the resident's note and discussed the case with the resident. I agree with the resident's findings and plan as documented. SUBJECTIVE: Mr Walker is without complaint. No cp, sob, n/v. OBJECTIVE: Last Vital Signs Temp Pulse Resp BP Pulse Ox 36.6 C 80 18 147/76 100 06/25/18 09:00 06/25/18 09:00 06/25/18 09:00 06/25/18 09:00 06/25/18 09:00 Gen: nad Pulm: ctab w/o w/r/r CV: rrr w/o m/r/g Abd: +bs, s/nt/nd Ext: no c/c/e CBC, BMP 06/25/18 06:40 06/25/18 06:40 ASSESSMENT AND PLAN: -appreciate hematology assistance -elevated platelets most likely reactive -trending down -encouraged patient to not refuse insulin, want tight glucose control to promote healing -continue current management -awaiting placement Problem List - Problems (1) Abscess Code(s): L02.91 - CUTANEOUS ABSCESS, UNSPECIFIED (2) Asthma Code(s): J45.909 - UNSPECIFIED ASTHMA, UNCOMPLICATED Qualifiers: Asthma severity: mild Asthma persistence: intermittent Asthma complication type: uncomplicated Qualified Code(s): J45.20 - Mild intermittent asthma, uncomplicated (3) Diabetes Code(s): E11.9 - TYPE 2 DIABETES MELLITUS WITHOUT COMPLICATIONS (4) Thrombocytosis Code(s): D47.3 - ESSENTIAL (HEMORRHAGIC) THROMBOCYTHEMIA
--- NOTE | 2018-06-25 18:57 | PN ---
Progress Note, Physician Chief Complaint: Abscess History of Present Illness: Feels well. No complaints. - Current Medication List Current Medications: Active Medications Acetaminophen (Tylenol -) 650 mg PO Q6H PRN PRN Reason: FEVER Last Admin: 06/22/18 21:51 Dose: 650 mg Albuterol Sulfate (Ventolin 0.083% Nebulizer Soln -) 1 amp NEB Q4H PRN PRN Reason: SHORT OF BREATH/WHEEZING Docusate Sodium (Colace -) 300 mg PO HS [facility] Last Admin: 06/24/18 22:08 Dose: Not Given Doxycycline Hyclate (Vibramycin -) 100 mg PO BID@1000,1800 [facility] Last Admin: 06/25/18 09:23 Dose: 100 mg Enoxaparin Sodium (Lovenox -) 40 mg SQ DAILY [facility] Last Admin: 06/25/18 09:23 Dose: 40 mg Ferrous Sulfate (Feosol -) 325 mg PO BIDWM [facility] Last Admin: 06/25/18 09:23 Dose: 325 mg Insulin Aspart (Novolog Vial Sliding Scale -) 1 vial SQ [facility]; Protocol Last Admin: 06/25/18 17:33 Dose: 4 units Insulin Detemir (Levemir Vial) 30 units SQ ACBK [facility] Last Admin: 06/25/18 07:05 Dose: 30 units Insulin Detemir (Levemir Vial) 10 units SQ [facility] Oxycodone HCl (Roxicodone -) 5 mg PO Q6H PRN PRN Reason: PAIN LEVEL 4 - 6 Last Admin: 06/25/18 16:38 Dose: 5 mg - Objective Vital Signs: Vital Signs Temperature 98 F 06/25/18 09:00 Pulse Rate 80 06/25/18 09:00 Respiratory Rate 18 06/25/18 09:00 Blood Pressure 147/76 06/25/18 09:00 O2 Sat by Pulse Oximetry (%) 100 06/25/18 09:00 Constitutional: Yes: No Distress Eyes: Yes: Conjunctiva Clear Cardiovascular: Yes: WNL, Regular Rate and Rhythm Respiratory: Yes: Regular, CTA Bilaterally Extremities: Yes: WNL Edema: No Labs: CBC, BMP 06/25/18 06:40 06/25/18 06:40 INR, PTT INR 1.12 (0.83-1.09) H 02/06/19 11:30 Assessment/Plan 43M with HTN, IDDMII, Asthma admitted with recurrent abscess s/p multiple I&Ds and wound vac. Thrombocytosis is most likely reactive 2/2 infection, interventions. Trending down. Would continue to monitor.
[2018-06-25] MEDS ORDERED: INSULIN (LEVEMIR) 100 UNITS/ML UNITS SQ SCH (22:00)
[2018-06-25] MEDS: DOCUSATE SODIUM 100 MG CAPSULE (FP) PO SCH (23:19)
[2018-06-26] MEDS: INSULIN (LEVEMIR) 100 UNITS/ML UNITS SQ SCH (07:27)
[2018-06-26 08:10] LABS: HEMATOCRIT 35.9 % (35.4-49); HEMOGLOBIN 12.5 GM/dL (11.7-16.9); MCH 30.5 pg (25.7-33.7); MCHC 34.9 g/dl (32.0-35.9); MEAN CELL VOLUME 87.5 fl (80-96); PLATELET COUNT 525 K/MM3 (134-434); WHITE BLOOD COUNT 4.2 K/mm3 (4.0-10.0)
[2018-06-26] MEDS: DOXYCYCLINE HYCLATE 100 MG CAPSULE PO SCH ×3 (08:20→18:11)
[2018-06-26] MEDS: FERROUS SO4 325 MG TABLET (FP) PO SCH ×3 (08:20→16:47)
[2018-06-26] MEDS: INSULIN SLIDING SCALE (NOVOLOG) 1 VIAL SQ SCH ×4 (08:32→21:21)
[2018-06-26] MEDS ORDERED: INSULIN (LEVEMIR) 100 UNITS/ML UNITS SQ SCH (08:41)
[2018-06-26 09:11] LABS: ANION GAP 7 MMOL/L (8-16); BLOOD UREA NITROGEN 22 mg/dL (7-18); CALCIUM 8.9 mg/dL (8.5-10.1); CHLORIDE 102 mmol/L (98-107); CO2 24 mmol/L (21-32); CREATININE 0.9 mg/dL (0.55-1.3); POTASSIUM 5.1 mmol/L (3.5-5.1); SODIUM 133 mmol/L (136-145)
[2018-06-26 09:24] LABS: GLUCOSE,RANDOM 343 mg/dL (74-106)
[2018-06-26] MEDS: ENOXAPARIN NA (PORCINE) 40 MG/0.4 ML DISP.SYRIN SQ SCH (10:27)
--- NOTE | 2018-06-26 11:47 | PN ---
Physical Exam: SUBJECTIVE: Patient seen and examined walking comfortably no new issues over night. afebrile pt refused for night lavemir 10 unit as he has an eepisode of hypoglycemia in past. Risk explained. Agreed to increase morning dose Refused colace as he is having a regular bowel movements. We will stop colace OBJECTIVE: Vital Signs Period Temp Pulse Resp BP Sys/Sanders Pulse Ox Last 24 Hr 97.7 F-98 F 72-79 20-20 106-122/62-86 GENERAL: The patient is awake, alert, and fully oriented, in no acute distress. EYES: Sclera anicteric, conjunctiva clear. ENT: Moist mucous membranes. LUNGS: CTA b/ with no wheezes, no crackles, no accessory muscle use. HEART: RRR, Normal S1 and S2 without murmur, rub or gallop. ABDOMEN: Soft, nontender, nondistended, normoactive bowel sounds. EXTREMITIES: No edema. BACK: Wound back in place, no leak Laboratory Results - last 24 hr 06/25/18 06/25/18 06/26/18 17:32 23:16 06:01 WBC RBC Hgb Hct MCV MCH MCHC RDW Plt Count MPV Sodium Potassium Chloride Carbon Dioxide Anion Gap BUN Creatinine Creat Clearance w eGFR POC Glucometer 231 122 299 Random Glucose Calcium 06/26/18 06/26/18 06/26/18 07:45 07:45 11:38 WBC 4.2 RBC 4.10 Hgb 12.5 Hct 35.9 MCV 87.5 MCH 30.5 MCHC 34.9 RDW 14.0 Plt Count 525 H MPV 7.0 L Sodium 133 L Potassium 5.1 Chloride 102 Carbon Dioxide 24 Anion Gap 7 L BUN 22 H Creatinine 0.9 Creat Clearance w eGFR > 60 POC Glucometer 260 Random Glucose 343 H* Calcium 8.9 Active Medications Generic Name Dose Route Start Last Admin Trade Name Freq PRN Reason Stop Dose Admin Acetaminophen 650 mg 06/21/18 14:51 06/22/18 21:51 Tylenol - PO 650 mg Q6H PRN Administration FEVER Albuterol Sulfate 1 amp 06/21/18 14:51 Ventolin 0.083% Nebulizer Soln - NEB Q4H PRN SHORT OF BREATH/WHEEZING Doxycycline Hyclate 100 mg 06/22/18 18:00 02/11/19 10:27 Vibramycin - PO 100 mg BID@1000,1800 [facility] Administration Enoxaparin Sodium 40 mg 06/21/18 15:00 06/26/18 10:27 Lovenox - SQ 40 mg DAILY [facility] Administration Ferrous Sulfate 325 mg 06/21/18 17:30 06/26/18 10:27 Feosol - PO 325 mg BIDWM [facility] Administration Insulin Aspart 1 vial 06/21/18 16:30 06/26/18 08:32 Novolog Vial Sliding Scale - SQ 6 units ACHS [facility] Administration Protocol Insulin Detemir 40 units 06/26/18 08:41 Levemir Vial SQ ACBK [facility] Oxycodone HCl 5 mg 06/24/18 14:10 06/25/18 23:19 Roxicodone - PO 5 mg Q6H PRN Administration PAIN LEVEL 4 - 6 ASSESSMENT/PLAN: Patient is a 43 year old male with a PMHx of HTN, HLD, IDDMII, Asthma, Iron Def. Anemia who was admitted 06/11/18 for a back abscess and left AMA 06/19/18 who returns today for similar symptoms. Patient admitted to med/surg for further evaluation and management. Left Back Abscess with Multiple Abscesses -S/P two I&D's of the back (06/12/18 and 06/16/18) -Started on Doxycycline 100mg po BID (Day #5) -Patient wound cultures positive for MRSA on last admission -isolation precautions -Pain control with Roxicodone 5mg Q6H PRN, and Tylenol 650mg po Q4H -Wound Vac in place -Awaiting SNF placement Thrombocytosis -Hematology consult placed and recommended to follow cbc as patient is likely having reactive thrombocytosis from infections and procedures done -Will continue to trend CBC HTN-controlled -Will resume Lisinopril 5mg po if patient has elevated BP -will continue to monitor HLD -On no medication. -LDL <70 IDDMII -A1c 10.9% (05/2018) -ISS -BGM History of Asthma -currently in no acute exacerbation -Continue with Ventolin PRN Iron Def. Anemia -Continue Ferrous Sulfate 325mg BIDWM -Continue to monitor CBC F/E/N -On no fluids, tolerating PO -Electrolytes wnl -Diabetic/Sodium controlled diet Prophylaxis -Lovenox 40mg SQ daily for DVT -No GI required Disposition -Full code -Continue IV Abx. Awaiting placement Visit type - Emergency Visit Emergency Visit: Yes ED Registration Date: 06/21/18 Care time: The patient presented to the Emergency Department on the above date and was hospitalized for further evaluation of their emergent condition. - New Patient This patient is new to me today: No - Critical Care Critical Care patient: No
--- NOTE | 2018-06-26 12:27 | PN ---
Progress Note, Physician History of Present Illness: no new issues mild pain at the operated site - Current Medication List Current Medications: Active Medications Acetaminophen (Tylenol -) 650 mg PO Q6H PRN PRN Reason: FEVER Last Admin: 06/22/18 21:51 Dose: 650 mg Albuterol Sulfate (Ventolin 0.083% Nebulizer Soln -) 1 amp NEB Q4H PRN PRN Reason: SHORT OF BREATH/WHEEZING Doxycycline Hyclate (Vibramycin -) 100 mg PO BID@1000,1800 [facility] Last Admin: 06/26/18 10:27 Dose: 100 mg Enoxaparin Sodium (Lovenox -) 40 mg SQ DAILY [facility] Last Admin: 06/26/18 10:27 Dose: 40 mg Ferrous Sulfate (Feosol -) 325 mg PO BIDWM [facility] Last Admin: 06/26/18 10:27 Dose: 325 mg Insulin Aspart (Novolog Vial Sliding Scale -) 1 vial SQ [facility]; Protocol Last Admin: 06/26/18 11:45 Dose: 6 units Insulin Detemir (Levemir Vial) 40 units SQ ACBK [facility] Oxycodone HCl (Roxicodone -) 5 mg PO Q6H PRN PRN Reason: PAIN LEVEL 4 - 6 Last Admin: 06/25/18 23:19 Dose: 5 mg - Objective Vital Signs: Vital Signs Temperature 98 F 06/26/18 07:56 Pulse Rate 72 06/26/18 07:56 Respiratory Rate 20 06/26/18 07:56 Blood Pressure 122/62 06/26/18 07:56 O2 Sat by Pulse Oximetry (%) 100 06/25/18 09:00 Constitutional: Yes: No Distress, Calm Cardiovascular: Yes: Regular Rate and Rhythm Respiratory: Yes: Regular, CTA Bilaterally Gastrointestinal: Yes: Normal Bowel Sounds, Soft Musculoskeletal: Yes: WNL Extremities: Yes: WNL Wound/Incision: Yes: Other (wound vac in place) Neurological: Yes: Alert, Oriented Psychiatric: Yes: Alert, Oriented Labs: CBC, BMP 06/26/18 07:45 06/26/18 07:45 INR, PTT INR 1.12 (0.83-1.09) H 06/21/18 11:30 Assessment/Plan Problem List - Problems (1) Abscess Code(s): L02.91 - CUTANEOUS ABSCESS, UNSPECIFIED (2) Asthma Code(s): J45.909 - UNSPECIFIED ASTHMA, UNCOMPLICATED Qualifiers: Asthma severity: mild Asthma persistence: intermittent Asthma complication type: uncomplicated Qualified Code(s): J45.20 - Mild intermittent asthma, uncomplicated (3) Diabetes Code(s): E11.9 - TYPE 2 DIABETES MELLITUS WITHOUT COMPLICATIONS plan continue oral abx will deescalte once 2 weeks are over
--- NOTE | 2018-06-26 17:32 | PN ---
Teaching Attending Note Name of Resident: Armand Epperson ATTENDING PHYSICIAN STATEMENT I saw and evaluated the patient. I reviewed the resident's note and discussed the case with the resident. I agree with the resident's findings and plan as documented. Please refer to discharge summary, in short Mr Walker is a 43 year old male who presented with abscess on his back. He underwent IV antibiotics and I&D. He was transitioned to oral antibiotics and wound vac is placed. He is safe for discharge to SNF today. Problem List - Problems (1) Abscess Code(s): L02.91 - CUTANEOUS ABSCESS, UNSPECIFIED (2) Asthma Code(s): J45.909 - UNSPECIFIED ASTHMA, UNCOMPLICATED Qualifiers: Asthma severity: mild Asthma persistence: intermittent Asthma complication type: uncomplicated Qualified Code(s): J45.20 - Mild intermittent asthma, uncomplicated (3) Diabetes Code(s): E11.9 - TYPE 2 DIABETES MELLITUS WITHOUT COMPLICATIONS (4) Thrombocytosis Code(s): D47.3 - ESSENTIAL (HEMORRHAGIC) THROMBOCYTHEMIA
--- NOTE | 2018-06-26 17:41 | DS ---
Physical Exam: SUBJECTIVE: Patient seen and examined pt feels better no issues overnight. OBJECTIVE: Vital Signs Period Temp Pulse Resp BP Sys/Sanders Pulse Ox Last 24 Hr 97.7 F-98.8 F 68-79 18-20 120-143/62-86 PHYSICAL EXAM GENERAL: The patient is awake, alert, and fully oriented, in no acute distress. EYES: Sclera anicteric, conjunctiva clear. ENT: Moist mucous membranes. LUNGS: CTA b/ with no wheezes, no crackles, no accessory muscle use. HEART: RRR, Normal S1 and S2 without murmur, rub or gallop. ABDOMEN: Soft, nontender, nondistended, normoactive bowel sounds. EXTREMITIES: No edema. BACK: Wound back in place, no leak LABS Laboratory Results - last 24 hr 06/25/18 06/26/18 06/26/18 23:16 06:01 07:45 WBC 4.2 RBC 4.10 Hgb 12.5 Hct 35.9 MCV 87.5 MCH 30.5 MCHC 34.9 RDW 14.0 Plt Count 525 H MPV 7.0 L Sodium Potassium Chloride Carbon Dioxide Anion Gap BUN Creatinine Creat Clearance w eGFR POC Glucometer 122 299 Random Glucose Calcium 06/26/18 06/26/18 06/26/18 07:45 11:38 17:29 WBC RBC Hgb Hct MCV MCH MCHC RDW Plt Count MPV Sodium 133 L Potassium 5.1 Chloride 102 Carbon Dioxide 24 Anion Gap 7 L BUN 22 H Creatinine 0.9 Creat Clearance w eGFR > 60 POC Glucometer 260 136 Random Glucose 343 H* Calcium 8.9 Microbiology 06/12/18 17:00 Back Gram Stain - Final 06/12/18 17:00 Back Wound Culture - Final S Aureus 06/12/18 03:24 Urine - Urine Clean Catch Urine Culture - Final NO GROWTH OBTAINED 06/11/18 22:49 Back Gram Stain - Final 06/11/18 22:49 Back Wound Culture - Final S Aureus 06/11/18 22:35 Blood - Peripheral Venous Blood Culture - Final NO GROWTH AFTER 5 DAYS INCUBATION 06/11/18 22:35 Blood - Peripheral Venous Blood Culture - Final NO GROWTH AFTER 5 DAYS INCUBATION HOSPITAL COURSE: [place]- Patient is a 43 year old male with a PMHx of HTN, HLD, IDDMII, Asthma, Iron Def. Anemia who was admitted 06/11/18 for a back abscess and left AMA 06/19 who returns today for similar symptoms. Recap of last admission patient had two I&D's with Dr. Barker (06/12/18 and 06/16/18) and was on IV abx since 06/11/2018. Wound and blood cultures were done, which revealed MRSA in the wound cultures and patient placed on isolation precautions. Patient was seen by surgical team throughout hospitalization and managing the wound with wound packing. Patient was also found to have an abscess of the left axilla that was painful and erythemetous. Surgery evaluated patient with possible plans to I&D the abscess of the left axilla. It was then determined that patient will likely need Wound Vac placed with possible lab[employer] IV abx use and eventual placement to nursing facility. However, patient left AMA due to personal reasons and stated he will return. Patient now returns as patient is homeless, requires a wound VAC, as per surgery, and will require alf facility to manage wound vac. Patient reports no worsening symptoms and no drainage of the wound. Diagnosed to have abscess on his back. started on IV antibiotics Throughout hospitalization, patient had two I&D's with Dr. Barker (06/12/18 and 06/16/18) and on IV abx. Wound and blood cultures were done, which revealed MRSA in the wound cultures and patient placed on isolation precautions. Patient was seen by surgical team throughout hospitalization and managing the wound with wound packing. Later on started on wound Woung Vac. Pt completed a course of antibiotic and is now DC to custodial on PO doxycyclin for 10 more days and wound vac. Instructions Follow up with your pcp with in one week. Follow up with Dr. Cope infectious disease. Follow up with dr sheehan surgeon with in one week. Check your blood sugar regularly and make a log and present it to to your pcp we had increased your levimir to 40 units in morning. Take medicines as prescribed. Take antibiotics twice a day for 10 more days. Get cbc blood work after 5 days Continue with vac dressing at pressure of 125. Date of Admission:06/21/18 Date of Discharge: 06/26/18 Minutes to complete discharge: 45 Discharge Summary Reason For Visit: ABSCESS Current Active Problems Abscess (Acute) Thrombocytosis (Acute) Condition: Stable - Instructions Diet, Activity, Other Instructions: Follow up with your pcp with in one week. Follow up with Dr. Cope infectious disease. Follow up with dr sheehan surgeon with in one week. Check your blood sugar regularly and make a log and present it to to your pcp we had increased your levimir to 40 units in morning. Take medicines as prescribed. Take antibiotics twice a day for 10 more days. Get cbc blood work after 5 days Continue with vac dressing at pressure of 125. Referrals: Herb Barker MD [Staff Physician] - 1 Week Davon Cope MD [Staff Physician] - 1 Week Disposition: AGAINST MEDICAL ADVICE - Home Medications Comprehensive Discharge Medication List: Ambulatory Orders Albuterol Sulfate Inhaler - [Ventolin HFA Inhaler -] 1 - 2 inh PO QID PRN Acetaminophen [Tylenol .Regular Strength -] 650 mg PO Q6H PRN tablet 06/26/18 Albuterol 0.083% Nebulizer Lori [Ventolin 0.083% Nebulizer Soln -] 1 amp NEB Q4H PRN amp 06/26/18 Doxycycline Hyclate [Vibramycin -] 100 mg PO BID@1000,1800 10 Days capsule 04/03 Ferrous Sulfate 325 mg PO BID #60 tablet 06/26/18 Ferrous Sulfate [Feosol] 325 mg PO BIDWM ud 06/26/18 Insulin (Levemir) [Levemir Vial] 40 unit SQ DAILY #1 vial 06/26/18 Insulin Sliding Scale [Novolog Vial Sliding Scale -] 1 vial SQ ACHS units 06/26 oxyCODONE HCL [Roxicodone -] 5 mg PO Q6H PRN tablet MDD 4 tabs 06/26/18 Problem List - Problems (1) Abscess Code(s): L02.91 - CUTANEOUS ABSCESS, UNSPECIFIED (2) Diabetes Code(s): E11.9 - TYPE 2 DIABETES MELLITUS WITHOUT COMPLICATIONS (3) Thrombocytosis Code(s): D47.3 - ESSENTIAL (HEMORRHAGIC) THROMBOCYTHEMIA This patient is new to me today: No Emergency Visit: Yes ED Registration Date: 06/21/18 Care time: The patient presented to the Emergency Department on the above date and was hospitalized for further evaluation of their emergent condition. Critical Care patient: No - Discharge Referral Referred to [facility] Med P.C.: No
[2018-06-26] MEDS: oxyCODONE HCL 5 MG TABLET PO PRN (20:19)
[2018-06-26] MEDS ORDERED: INSULIN (NOVOLOG) ASPART 100 UNITS/ML 10ML VIAL ONE (21:08)
[2018-06-27] MEDS: INSULIN SLIDING SCALE (NOVOLOG) 1 VIAL SQ SCH ×2 (06:04→12:27)
[2018-06-27 07:06] VITALS: TEMP 97.8
--- NOTE | 2018-06-27 07:18 | PN ---
Physical Exam: SUBJECTIVE: Patient seen and examined no new course overnight feels good vac dressing in situ afebrile blood glucoe still elevated 297 pt [facility] but no one came to pick him up. OBJECTIVE: Vital Signs Period Temp Pulse Resp BP Sys/Sanders Pulse Ox Last 24 Hr 97.8 F-98.8 F 68-78 18-20 118-143/62-80 GENERAL: The patient is awake, alert, and fully oriented, in no acute distress. EYES: Sclera anicteric, conjunctiva clear. ENT: Moist mucous membranes. LUNGS: CTA b/ with no wheezes, no crackles, no accessory muscle use. HEART: RRR, Normal S1 and S2 without murmur, rub or gallop. ABDOMEN: Soft, nontender, nondistended, normoactive bowel sounds. EXTREMITIES: No edema. BACK: Wound back in place, no leak Laboratory Results - last 24 hr 06/26/18 06/26/18 06/26/18 07:45 07:45 11:38 WBC 4.2 RBC 4.10 Hgb 12.5 Hct 35.9 MCV 87.5 MCH 30.5 MCHC 34.9 RDW 14.0 Plt Count 525 H MPV 7.0 L Sodium 133 L Potassium 5.1 Chloride 102 Carbon Dioxide 24 Anion Gap 7 L BUN 22 H Creatinine 0.9 Creat Clearance w eGFR > 60 POC Glucometer 260 Random Glucose 343 H* Calcium 8.9 06/26/18 06/26/18 06/27/18 17:29 21:20 05:49 WBC RBC Hgb Hct MCV MCH MCHC RDW Plt Count MPV Sodium Potassium Chloride Carbon Dioxide Anion Gap BUN Creatinine Creat Clearance w eGFR POC Glucometer 136 315 297 Random Glucose Calcium Active Medications Generic Name Dose Route Start Last Admin Trade Name Freq PRN Reason Stop Dose Admin Acetaminophen 650 mg 06/21/18 14:51 06/22/18 21:51 Tylenol - PO 650 mg Q6H PRN Administration FEVER Albuterol Sulfate 1 amp 06/21/18 14:51 Ventolin 0.083% Nebulizer Soln - NEB Q4H PRN SHORT OF BREATH/WHEEZING Doxycycline Hyclate 100 mg 06/22/18 18:00 06/26/18 18:11 Vibramycin - PO 100 mg BID@1000,1800 [facility] Administration Enoxaparin Sodium 40 mg 06/21/18 15:00 06/26/18 10:27 Lovenox - SQ 40 mg DAILY [facility] Administration Ferrous Sulfate 325 mg 06/21/18 17:30 06/26/18 16:47 Feosol - PO 325 mg BIDWM [facility] Administration Insulin Aspart 1 vial 06/21/18 16:30 06/27/18 06:04 Novolog Vial Sliding Scale - SQ 6 units ACHS [facility] Administration Protocol Insulin Detemir 40 units 06/26/18 08:41 06/27/18 06:03 Levemir Vial SQ 40 units ACBK [facility] Administration Insulin Detemir 6 units 06/27/18 22:00 Levemir Vial SQ HS [facility] Oxycodone HCl 5 mg 06/24/18 14:10 06/26/18 20:19 Roxicodone - PO 5 mg Q6H PRN Administration PAIN LEVEL 4 - 6 Patient is a 43 year old male with a PMHx of HTN, HLD, IDDMII, Asthma, Iron Def. Anemia who was admitted 06/11/18 for a back abscess and left AMA 06/19/18 who returns today for similar symptoms. Patient admitted to med/surg for further evaluation and management. Left Back Abscess with Multiple Abscesses -S/P two I&D's of the back (06/12/18 and 06/16/18) -Started on Doxycycline 100mg po BID (Day #6) -Patient wound cultures positive for MRSA on last admission -isolation precautions -Pain control with Roxicodone 5mg Q6H PRN, and Tylenol 650mg po Q4H -Wound Vac in place -pt was dc yesterday to snf but no one to pick him up Thrombocytosis -Hematology consult placed and recommended to follow cbc as patient is likely having reactive thrombocytosis from infections and procedures done -Will continue to trend CBC HTN-controlled resume Lisinopril 5mg po daily - HLD -On no medication. -LDL <70 IDDMII -A1c 10.9% (05/2018) -on levemir 40 in am and 6 at night -ISS -BGM History of Asthma -currently in no acute exacerbation -Continue with Ventolin PRN Iron Def. Anemia -Continue Ferrous Sulfate 325mg BIDWM -Continue to monitor CBC F/E/N - tolerating PO -Electrolytes wnl Prophylaxis -Lovenox 40mg SQ daily for DVT -No GI required Disposition -Full code -Continue Abx. Visit type - Emergency Visit Emergency Visit: Yes ED Registration Date: 06/21/18 Care time: The patient presented to the Emergency Department on the above date and was hospitalized for further evaluation of their emergent condition. - New Patient This patient is new to me today: No - Critical Care Critical Care patient: No
[2018-06-27 07:38] LABS: BASO % 2.3 % (0-2.0); EOS % 5.2 % (0-4.5); HEMATOCRIT 32.9 % (35.4-49); HEMOGLOBIN 11.4 GM/dL (11.7-16.9); MCHC 34.6 g/dl (32.0-35.9); MEAN CELL VOLUME 86.8 fl (80-96); MEAN PLT VOLUME 6.9 fl (7.5-11.1); MONO % 10.2 % (3.8-10.2); NEUT % 47.3 % (42.8-82.8); PLATELET COUNT 478 K/MM3 (134-434); RBC 3.79 M/mm3 (4.00-5.60); RDW 13.9 % (11.9-15.9); WHITE BLOOD COUNT 4.3 K/mm3 (4.0-10.0)
[2018-06-27 08:10] LABS: ALBUMIN 2.9 g/dl (3.4-5.0); ALK PHOS 88 U/L (45-117); ANION GAP 5 MMOL/L (8-16); BILIRUBIN,TOTAL 0.3 mg/dL (0.2-1); BLOOD UREA NITROGEN 25 mg/dL (7-18); CALCIUM 8.5 mg/dL (8.5-10.1); CHLORIDE 103 mmol/L (98-107); CO2 26 mmol/L (21-32); CREATININE 0.9 mg/dL (0.55-1.3); GLUCOSE,RANDOM 238 mg/dL (74-106); POTASSIUM 4.4 mmol/L (3.5-5.1); SGOT/AST 21 U/L (15-37); SGPT/ALT 28 U/L (13-61); SODIUM 134 mmol/L (136-145); TOT PROT 6.1 g/dl (6.4-8.2)
[2018-06-27] MEDS: DOXYCYCLINE HYCLATE 100 MG CAPSULE PO SCH (09:05)
[2018-06-27] MEDS: FERROUS SO4 325 MG TABLET (FP) PO SCH (09:05)
[2018-06-27] MEDS: ENOXAPARIN NA (PORCINE) 40 MG/0.4 ML DISP.SYRIN SQ SCH (09:06)
[2018-06-27] MEDS: oxyCODONE HCL 5 MG TABLET PO PRN (09:19)
[2018-06-27] MEDS ORDERED: LISINOPRIL 5 MG TABLET (FP) PO SCH (10:00)
[2018-06-27 11:58] VITALS: BP 143/80; PULSE 98
--- NOTE | 2018-06-27 13:38 | PN ---
Progress Note (short form) - Note Progress Note: Patient left the hospital without information. Pt was DC yesterday but was waiting for ems to come and take him to skilled nursing.
--- NOTE | 2018-06-27 13:48 | PN ---
Progress Note, Physician History of Present Illness: patient walked out - Current Medication List Current Medications: Active Medications Acetaminophen (Tylenol -) 650 mg PO Q6H PRN PRN Reason: FEVER Last Admin: 06/22/18 21:51 Dose: 650 mg Albuterol Sulfate (Ventolin 0.083% Nebulizer Soln -) 1 amp NEB Q4H PRN PRN Reason: SHORT OF BREATH/WHEEZING Doxycycline Hyclate (Vibramycin -) 100 mg PO BID@1000,1800 [facility] Last Admin: 06/27/18 09:05 Dose: 100 mg Enoxaparin Sodium (Lovenox -) 40 mg SQ DAILY [facility] Last Admin: 06/27/18 09:06 Dose: 40 mg Ferrous Sulfate (Feosol -) 325 mg PO BIDWM [facility] Last Admin: 06/27/18 09:05 Dose: 325 mg Insulin Aspart (Novolog Vial Sliding Scale -) 1 vial SQ [facility]; Protocol Last Admin: 06/27/18 12:27 Dose: 2 units Insulin Detemir (Levemir Vial) 40 units SQ ACBK [facility] Last Admin: 06/27/18 06:03 Dose: 40 units Insulin Detemir (Levemir Vial) 6 units SQ HS [facility] Lisinopril (Prinivil) 5 mg PO DAILY [facility] Last Admin: 06/27/18 09:05 Dose: 5 mg Oxycodone HCl (Roxicodone -) 5 mg PO Q6H PRN PRN Reason: PAIN LEVEL 4 - 6 Last Admin: 06/27/18 09:19 Dose: 5 mg - Objective Vital Signs: Vital Signs Temperature 97.8 F 06/27/18 09:00 Pulse Rate 98 H 06/27/18 09:00 Respiratory Rate 20 06/27/18 09:00 Blood Pressure 143/80 06/27/18 09:00 O2 Sat by Pulse Oximetry (%) 100 06/25/18 09:00 Labs: CBC, BMP 06/27/18 06:30 06/27/18 06:30 INR, PTT INR 1.12 (0.83-1.09) H 06/21/18 11:30
[2018-06-27] MEDS ORDERED: INSULIN (LEVEMIR) 100 UNITS/ML UNITS SQ SCH (22:00)
== END 2018-06-27 13:40 | disposition left against medical advice (07) | DRG 383 ==
LOC: JER 09:48 → JERBED 11:36 → J8W 23:37
PROVIDERS: ADMIT Internal Medicine; ATTEND Internal Medicine
DX: L02.212 Cutaneous abscess of back [any part, except buttock and flank] (principal); L02.412 Cutaneous abscess of left axilla; E11.65 Type 2 diabetes mellitus with hyperglycemia; I10 Essential (primary) hypertension; E78.5 Hyperlipidemia, unspecified; Z79.4 Long term (current) use of insulin; D47.3 Essential (hemorrhagic) thrombocythemia; J45.20 Mild intermittent asthma, uncomplicated; Z59.0 Homelessness; B95.62 Methicillin resistant Staphylococcus aureus infection as the cause of diseases classified elsewhere; D50.9 Iron deficiency anemia, unspecified; J45.909 Unspecified asthma, uncomplicated
CPT/HCPCS: 36415; 80048; 80053; 82962; 83735; 84100; 85025; 85027; 85610; 97116-GP; 97161-GP; 99283-25